=== PATIENT | female | born 1940 | race Caucasian/White ===

== ENCOUNTER → 2019-12-02 09:15 | Outpatient (CLI) | payer OTHER, SELFPAY ==
--- NOTE | ~2019-12-02 | MM_ITS ---
EXAMINATION: MM screening dayanara BI w butch HISTORY: Screening TECHNIQUE: Craniocaudal and mediolateral oblique 3-D tomosynthesis images were obtained and synthetic 2-D images were generated. CAD analysis was submitted and interpreted. COMPARISON: 11/17/2018 bilateral digital screening mammogram 09/15/2017 postbiopsy left mammogram 10/28/2017 right digital screening mammogram bilateral digital screening mammogram BREAST PARENCHYMAL COMPOSITION: There are scattered areas of fibroglandular density. FINDINGS: There is a biopsy marker on the left; history of prior benign left breast biopsy. There is no evidence of suspicious mass, calcification, or architectural distortion to suggest malignancy in e ither breast. There has been no suspicious interval change. IMPRESSION: 1. No mammographic evidence of malignancy. 2. Recommend routine screening mammography in one year. BI-RADS Category 1: Negative Reviewed, dictated and finalized at location A.
== END ==
PROVIDERS: PCP Emergency Medicine; Visit Provider Emergency Medicine
DX: Z12.31 Encounter for screening mammogram for malignant neoplasm of breast (principal)
CPT/HCPCS: 77063; 77067

== ENCOUNTER → 2020-09-19 08:17 | Outpatient (CLI) | payer OTHER, SELFPAY ==
--- NOTE | ~2020-09-19 | MMUS_ITS ---
EXAMINATION: MM diagnostic dayanara RT w butch, US breast RT complete HISTORY: Bloody nipple discharge TECHNIQUE: Additional 3-D tomosynthesis images of the right breast were performed and synthetic 2-D i mages were generated. CAD analysis was submitted and interpreted. High resolution right breast ultras ound was performed. COMPARISON: Comparison to multiple prior studies sequentially, with oldest reviewed study dated 01/2018. BREAST PARENCHYMAL COMPOSITION: Breast composed of scattered areas of fibroglandular density. FINDINGS: MAMMOGRAPHIC FINDINGS: There are no suspicious masses, calcifications or architectural distortion in the right breast to sug gest malignancy. ULTRASOUND: Complete right breast ultrasound including all 4 quadrants in the subareolar location demonstrates mi ldly prominent ducts at the 10:00 position. No discrete mass is identified. IMPRESSION: 1. No evidence for malignancy in the right breast. 2. Consider further evaluation with ductogram or MRI for further assessment of bloody nipple discharg e. BI-RADS Category 0: Incomplete: Needs additional imaging evaluation. Reviewed, dictated and finalized at location A. 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 No evidence for malignancy in the right breast. 2. Consider further evaluation with ductogram or MRI for further assessment of bloody nipple discharge. BI-RADS Category 0: Incomplete: Needs additional imaging evaluation.
== END ==
PROVIDERS: PCP Emergency Medicine; Visit Provider Emergency Medicine
DX: N64.52 Nipple discharge (principal); R92.8 Other abnormal and inconclusive findings on diagnostic imaging of breast
CPT/HCPCS: 76641; 77061; 77065; G0279

== ENCOUNTER 2020-10-19 10:08 | Outpatient (CLI) | payer OTHER, SELFPAY ==
--- NOTE | ~2020-10-19 | MM_ITS ---
MM consultation DATE: 10/19/2020 11:47 INDICATION: The patient presented for galactogram for right intermittent bloody nipple discharge. TECHNIQUE: Multiple attempts were made to introduce discharge by manual compression of the breast tis sammy, without success. IMPRESSION: Unable to perform galactogram due to failure to induce any nipple discharge Reviewed, dictated and finalized at Location A. Reviewed, dictated and finalized at location A. 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
== END 2020-10-19 10:09 | disposition home or self-care (01) ==
PROVIDERS: PCP Emergency Medicine; Visit Provider Emergency Medicine
DX: N64.52 Nipple discharge (principal)
CPT/HCPCS: 99199

== ENCOUNTER 2020-12-05 10:41 | Outpatient (CLI) | payer OTHER, SELFPAY ==
--- NOTE | ~2020-12-05 | MR_ITS ---
MR breast BI wo/w con 12/05/2020 14:58 CDT INDICATION: Bloody right nipple discharge. TECHNIQUE: MRI of the breasts perform using standard protocol pre-and post IV contrast with the follo wing sequences: Axial T2 STIR, axial T1, axial vibrant T1 with fat suppression precontrast and multip hasic postcontrast. COMPARISON: Mammogram and ultrasound dated 09/19/2020 FINDINGS: There are no abnormalities on the precontrast sequences. There is mild background parenchym al enhancement. There is a heterogeneously enhancing right areolar/subareolar mass with internal cyst ic change. This mass measures 11 x 9 x 9 mm with round shaped. There is rapid washout enhancement. LEFT BREAST: No signal abnormalities on precontrast sequences. There is mild background parenchymal enhancement. No enhancing lesions following contrast administration. No areas of enhancement meeti ng threshold criteria on CAD analysis. No evidence of signal abnormalities in the axillary or inter nal mammary node distributions.] IMPRESSION: 1: Right breast: Heterogeneously enhancing right areolar/subareolar mass measuring 11 mm with rapid washout enhancement characteristics. BI-RADS Category 4. 2: Left breast: Negative. No evidence of malignancy. BI-RADS category 1. Recommend annual mammogr aphy follow-up. BI-RADS CATEGORY 4-SUSPICIOUS ABNORMALITY RECOMMENDATION: Surgical consultation for excisional biopsy recommended. Dr. Tom Licona discussed with Dr. Suleman Harrell MD at 12/05/2020 15:17 CDT. Reviewed, dictated and finalized at location A. IMPRESSION: 1: Right breast: Heterogeneously enhancing right areolar/subareolar mass measu ring 11 mm with rapid washout enhancement characteristics. BI-RADS Category 4. 2: Left breast: Negative. No evidence of malignancy. BI-RADS category 1. Re commend annual mammography follow-up. BI-RADS CATEGORY 4-SUSPICIOUS ABNORMALITY RECOMMENDATION: Surgical consultation for excisional biopsy recommended. Dr. Tom Licona discussed with Dr. Suleman Harrell MD at 12/05/2020 15:17 CDT.
== END 2020-12-05 10:42 | disposition home or self-care (01) ==
PROVIDERS: PCP Emergency Medicine; Visit Provider Emergency Medicine
DX: N64.52 Nipple discharge (principal); R92.8 Other abnormal and inconclusive findings on diagnostic imaging of breast
CPT/HCPCS: 77049; A9577; C8908

== ENCOUNTER 2020-12-20 09:33 | Outpatient (CLI) | payer OTHER, SELFPAY ==
--- NOTE | ~2020-12-20 | US_ITS ---
US breast RT limited DATE: 12/20/2020 10:18 INDICATION: Patient presented for biopsy of reported subareolar mass TECHNIQUE: High-resolution ultrasound imaging and color flow imaging of the nipple and subareolar are a of the right breast COMPARISON: 09/19/2020 right complete breast ultrasound 12/05/2020 MRI breast examination FINDINGS: There is an approximately 6.5 mm nonspecific solid lesion within the right nipple complex. No subareolar mass lesion is noted. IMPRESSION: Nonspecific by 5 mm soft tissue mass is suggested within the right nipple; breast surgeon consultation is recommended with possible biopsy BI-RADS Category 4: Suspicious abnormality; biopsy should be considered Reviewed, dictated and finalized at Location A. Reviewed, dictated and finalized at location A.
== END 2020-12-20 09:34 | disposition home or self-care (01) ==
PROVIDERS: PCP Emergency Medicine; Visit Provider Surgery
DX: R92.8 Other abnormal and inconclusive findings on diagnostic imaging of breast (principal); N64.52 Nipple discharge
CPT/HCPCS: 76642

== ENCOUNTER → 2021-01-13 02:12 | Outpatient (CLI) | payer OTHER, SELFPAY ==
[2021-01-13 19:55] LABS: SARS-CoV-2 RNA PCR Negative
== END ==
PROVIDERS: PCP Emergency Medicine; Visit Provider Surgery
DX: Z01.812 Encounter for preprocedural laboratory examination (principal); Z20.822 Contact with and (suspected) exposure to COVID-19
CPT/HCPCS: C9803; U0003; U0005

== ENCOUNTER 2021-01-17 02:10 | Day surgery (SDC) | payer OTHER, SELFPAY ==
[2021-01-09 15:32] VITALS: BMI 26.6
--- NOTE | ~2021-01-17 | NM_ITS ---
EXAMINATION: NM sentinel node inject only INDICATION: Bloody right nipple discharge. TECHNIQUE: 1.064 mCi Tc 99m Lymphoseek were injected in 4 aliquots in the upper outer quadrant of the breast near the areola. No images were obtained. IMPRESSION: 1. Status post right breast sentinel lymph node radiopharmaceutical injection. Please refer to proced ure note for full details. Reviewed, dictated and finalized at location A. IMPRESSION: 1. Status post right breast sentinel lymph node radiopharmaceutical injection. Please refer to procedure note for full details.
[2021-01-17 06:50] VITALS: BP 145/76; PULSE 67; RESP 16; TEMP 36.2; O2SAT 95
--- NOTE | 2021-01-17 07:32 | WPDHPUPDATE1 ---
History and Physical Update Update Date/Time: 01/17/21 07:32 History and Physical has been reviewed, including an updated exam of the patient. There are NO changes in the patient's condition. Risks, benefits, and alternatives have been discussed and questions answered. Patient agrees to proceed with procedure.
[2021-01-17] MEDS: LACTATED RINGERS 1,000 ML 30 ML IV CONT ×2 (07:46→10:57)
--- NOTE | 2021-01-17 08:34 | SUR.PREOP ---
pt taken to nuclear med for needle loc, 0750.returned to pre op 0810.
--- NOTE | 2021-01-17 08:45 | WPDANESEPPF ---
Anes - Initial Pre Proc Eval Procedure: Operation Date: 01/17/21 08:30 Proposed Procedures p Right Breast Axillary [place] Lymph Node Biopsy - Sadiq Dalton MD s Right Breast Duct Excision - Sadiq Dalton MD Date/Time: 01/17/21 08:45 Surgeon: Sadiq Dalton MD Pre Op Diagnosis: bloody nipple discharge Patient Data Age: 80 Gender: F Height: 5 ft 9 in Weight: 82.6 kg Last Vital Signs Temp 36.2 C L 01/17/21 06:50 Pulse 67 01/17/21 06:50 Resp 16 01/17/21 06:50 BP 145/76 H 01/17/21 06:50 Pulse Ox 95 01/17/21 06:50 Allergies Allergy/AdvReac Type Severity Reaction Status Date / Time hydrocodone Allergy Unknown HALLUCINATI Verified 01/17/21 07:32 ONS oxycodone Allergy Unknown Hallucinati Verified 01/17/21 07:32 ng Home Medications Medication Instructions Recorded Confirmed Type biotin 2,500 mcg capsule 2,500 mcg PO DAILY 02/01/20 01/17/21 History calcium carbonate 600 mg (1,500 1 tablet PO BID 02/01/20 01/17/21 History mg)-vitamin D3 400 unit tablet turmeric root extract 500 mg 500 mg PO DAILY 02/01/20 01/17/21 History capsule cranberry 400 mg capsule 400 mg PO DAILY 08/30/20 01/17/21 History glucosamine-chondroitin 250 mg-200 1 tablet PO DAILY 08/30/20 01/17/21 History mg tablet conjugated estrogens 0.625 mg/gram 0.625 mg VAGINAL EVERY OTHER DAY 12/11/20 01/17/21 History vaginal cream mirabegron 50 mg tablet,extended 50 mg PO DAILY 12/11/20 01/17/21 History release 24 hr cholecalciferol (vitamin D3) 25 mcg PO DAILY 01/09/21 01/17/21 History estradiol 1 mg PO EVERY OTHER DAY 01/09/21 01/17/21 History levothyroxine 137 mcg PO QAM 01/09/21 01/17/21 History losartan 100 mg PO QAM 01/09/21 01/17/21 History kbvxkdqy-hhs-CI-lut-zeaxanth 1 tablet PO DAILY 01/09/21 01/17/21 History [Macular Vitamin] potassium chloride 10 meq PO DAILY 01/09/21 01/17/21 History verapamil 240 mg PO HS 01/09/21 01/17/21 History vit A-vit C-vit [id number] [Eye 2 tablet PO DAILY 01/09/21 01/17/21 History Vitamin and Minerals] Patient hx anesthesia problems: none Family hx anesthesia problems: none PMFSH Past Medical History Medical History CKD (chronic kidney disease), stage III History of blood transfusion HTN (hypertension) Hypothyroidism (acquired) Nipple discharge Surgical History Surgical History H/O cataract extraction H/O: hysterectomy History of bilateral knee replacement History of right hip replacement History of surgery on arm Family History Family History Mother Family history of osteoporosis, Onset Age: 102 Uterine cancer Father Acute myocardial infarction, Onset Age: 59 Diabetes mellitus Social History Social History Smoking status: Never smoker Alcohol intake: never Substance use: never Living arrangements: with family Additional living arrangements comments: [facility] Spiritual care concerns: No Anes - Eval Final PreProcedure Day of Procedure 01/17/21 08:45 Patient weight: overweight Heart: regular rate and rhythm Lungs: clear to auscultation Airway: Mallampati scale class II Neurological: alert and oriented Last oral intake: >/= 8 hours ASA classification: II Emergent: no Anesthetic plan: proceed Anesthesia type and monitoring: general LMA and standard monitoring Informed Consent: The patient's anesthetic plan and its attendant risks and benefits were discussed with the patient/family/POA. Questions were solicited and answers provided to the satisfaction of the patient/family/POA.
[2021-01-17] MEDS: ceFAZolin 2 GM/D5W 50 ML 2 GM/50 ML BAG IVPB (08:55)
[2021-01-17] MEDS: ISOSULFAN BLUE 1% INJ 5 ML VIAL SUB-Q (09:01)
--- NOTE | 2021-01-17 09:34 | SUR.OPER ---
Right Breast Axillary sentinel lymph node # 1 sent with DESTINY Barker and received in pathology by Carlyle
--- NOTE | 2021-01-17 09:45 | SUR.OPER ---
Right Breast Axillary [place] Lymph Node # 2 SENT WITH DESTINY BOURGEOIS AND RECEIVED IN PATHOLOGY JORGE Tadeo
--- NOTE | 2021-01-17 09:50 | SUR.OPER ---
Right Breast sentinel lymph node # 3 sent with DESTINY Barker and received in pathology by Carlyle
[2021-01-17 10:57] VITALS: BP 154/70; PULSE 59; RESP 16; TEMP 36.2; O2SAT 94
--- NOTE | 2021-01-17 11:12 | PM.PROC ---
Procedure Note - Detailed Date of procedure: 01/17/21 Pre-op diagnosis: bloody nipple discharge Bloody nipple discharge, right breast Post-op diagnosis: same Procedure performed: Right axillary sentinel lymph node dissection, excision right breast nipple and duct Description of procedure: The patient was seen in the preoperative holding area. She had previously been to x-ray where radioisotope had been administered for the sentinel node biopsy. The right breast was marked. She was taken to surgery and induced into general anesthesia. The right breast axilla and right arm were prepped and draped such that the arm was mobile and in the field. We started with the right axillary sentinel lymph node biopsy. The navigator was used and the axilla was checked. The area of highest isotope emission was marked in the axilla. I then infiltrated Isosulfan Blue dye under the right nipple. Gentle breast massage was carried out for 2-3 minutes. I then recheck the right axilla verifying again the area of high isotope emission. The proposed hairline right axillary incision was drawn on the skin. Local anesthesia was infiltrated into the area of the anticipated incision and in the deeper subcutaneous tissues of the axilla. Incision was made and deepened through the subcutaneous. Cautery was used for hemostasis. We continued the dissection down into the axillary contents. I recheck with the navigator in found the direction of the high isotope emission. There were several veins in this area as well. We dissected further into the axilla and identified a dye stained enlarged right axillary node. I verified this had high isotope emission as well. This node was dissected free from the surrounding veins and subcutaneous tissue of the axilla. Lymphatics were doubly clipped and divided. The node was removed. It was sent to pathology fresh for permanent labeled right axillary sentinel node 1. I looked in the axilla for additional lymphatics that may be dye stained in lead to additional sentinel nodes. I did not see any. I used the navigator and found high isotope emission high in the axilla under the pectoralis minor muscle. This area was exposed and using a navigator I dissected and found 2 additional isotope emitting axillary nodes. These were each dissected out carefully using clips and cautery. Each was doubly checked and found to give a very high isotope emission consistent with sentinel nodes. They were each sent to pathology labeled right axillary sentinel nodes 2. And 3. We then checked by palpation and with the navigator for any additional nodes that might be sentinel nodes. None were found. The wound was made hemostatic with the cautery. It was closed in layers with 3 0 Monocryl interrupted suture. The skin was closed with interrupted 3 0 Monocryl subcuticular skin suture. The right axilla was then quarantined. We turned our attention to the right breast. The area that had been the site of the bloody nipple discharge was obviously an open wound on the nipple protrusion. I tried to elicit bloody nipple discharge but could not do so. Using lacrimal duct probes, I was however, able to introduce a lacrimal duct probe into the associated duct and down into the superficial breast tissue just below the nipple-areolar complex. I then marked a circumareolar incision in the inferior medial portion of the nipple. Local anesthesia was infiltrated into this area and in the deeper breast tissue. Incision was made and deepened into the subcutaneous. The cautery was again used for hemostasis. We then elevated the nipple-areolar complex and dissected superficially but deep to the areola. I dissected over to the vicinity of the nipple and the lacrimal duct probe. From there I then excised the tissue directly underneath the nipple and that tissue extending deeper into the breast but associated with the lacrimal duct probe. All of this retroareolar breast tissue was removed. It was
[2021-01-17 11:25] VITALS: BP 155/73; PULSE 59; O2SAT 91
[2021-01-17 11:55] VITALS: BP 155/72; PULSE 51
== END 2021-01-17 12:15 | disposition home or self-care (01) ==
PROVIDERS: PCP Emergency Medicine; Visit Provider Surgery
PROC: (CPT 38525; principal; 2021-01-17 08:30)
PROC: (CPT 19301; 2021-01-17 08:30)
DX: N64.52 Nipple discharge (principal); N60.81 Other benign mammary dysplasias of right breast; I12.9 Hypertensive chronic kidney disease with stage 1 through stage 4 chronic kidney disease, or unspecified chronic kidney disease; N18.30 Chronic kidney disease, stage 3 unspecified; E03.9 Hypothyroidism, unspecified
CPT/HCPCS: 19301; 38525; 38792; 88305; 88307; A9520; C1713; C9803; J0690; J1100; J1170; J2405; J2704; J3010; J7120; U0003; U0005

== ENCOUNTER → 2021-03-06 11:19 | Outpatient (CLI) | payer OTHER, SELFPAY ==
--- NOTE | ~2021-03-06 | MM_ITS ---
EXAMINATION: MM screening dayanara LT w butch HISTORY: Screening left mammogram TECHNIQUE: Craniocaudal and mediolateral oblique 3-D tomosynthesis images were obtained and synthetic 2-D images were generated. CAD analysis was submitted and interpreted. COMPARISON: 12/02/2019, 11/17/2018 BREAST PARENCHYMAL COMPOSITION: The breast is heterogeneously dense, which may obscure small masses. FINDINGS: There is no evidence of suspicious mass, calcification, or architectural distortion to sugg est malignancy. There has been no suspicious interval change. IMPRESSION: 1. No mammographic evidence of malignancy. 2. Recommend routine screening mammography while the patient remains in good health. BI-RADS Category 1: Negative Reviewed, dictated and finalized at location A. IMPRESSION: 1. No mammographic evidence of malignancy. 2. Recommend routine screening mammography while the patient remains in good he alth. BI-RADS Category 1: Negative
== END ==
PROVIDERS: PCP Emergency Medicine; Visit Provider Emergency Medicine
DX: Z12.31 Encounter for screening mammogram for malignant neoplasm of breast (principal)
CPT/HCPCS: 77063; 77067

== ENCOUNTER 2021-07-10 10:44 | Inpatient (IN) | payer OTHER, SELFPAY ==
--- NOTE | ~2021-07-10 | CT_ITS ---
EXAMINATION: CT brain wo con DATE: 07/10/2021 14:13 INDICATION: Abnormal gait, loss of balance. Right upper extremity tingling. TECHNIQUE: Computed tomography (CT) of the head was performed without intravenous contrast. The mA wa s adjusted according to patient size. Iterative reconstruction technique was employed. Exam dose: 60 5.33 mGy-cm total exam DLP. COMPARISON: None FINDINGS: Bilateral vertebral artery, basilar artery and prominent bilateral carotid siphon and supra clinoid internal carotid artery calcifications are noted. There is prominent nonspecific patchy diminished attenuation of the subcortical and periventricular c erebral white matter, likely due to chronic small vessel ischemic changes. Small chronic lacunar infa rcts of left thalamus. No cerebrovascular accident is noted otherwise. No intracranial mass lesion or hemorrhage is detected. There is moderate cerebral and cerebellar volume loss. No subdural or epidural hematoma is detected. No fracture or bone destruction of the cranial vault. Included paranasal sinuses and mastoid air cells are normally developed and aerated. IMPRESSION: Cerebral atherosclerosis and nonspecific white matter changes likely due to chronic small vessel ischemic changes Small chronic lacunar infarcts of left thalamus Reviewed, dictated and finalized at [facility]. Reviewed, dictated and finalized at location A. SFORMER BUILDER IMPRESSION: Cerebral atherosclerosis and nonspecific white matter changes likel y due to chronic small vessel ischemic changes Small chronic lacunar infarcts of left thalamus
--- NOTE | ~2021-07-10 | US_ITS ---
EXAMINATION: US carotid duplex BI EXAM DATE: 07/11/2021 12:42 INDICATION: Stroke symptoms. TECHNIQUE: Grayscale, color and pulsed Doppler images of the cervical carotid arteries were obtained . The degree of vessel stenosis is placed in one of the following categories: normal, <50% stenosis, 50-69% stenosis, >=70% stenosis but less than near-occlusion, near-occlusion, or occlusion. Note that percent stenosis relative to normal distal artery lumen diameter is indirectly measured from velocit y measurements as described by Reza, et al. Radiology 2003; 229:340-346. There is no prior study fo r comparison. FINDINGS: RIGHT SIDE: Right common carotid artery peak systolic velocity (PSV in cm/s): 73 Right bulb/internal carotid artery peak systolic velocity (PSV in cm/s): 42 Right internal carotid artery end diastolic velocity (EDV in cm/s): 12 Right ICA/CCA peak systolic ratio: 0.6 Right external carotid artery peak systolic velocity (PSV in cm/s): 43 Right vertebral artery antegrade flow: yes There is no focal plaque identified. LEFT SIDE: Left common carotid artery peak systolic velocity (PSV in cm/s): 51 Left bulb/internal carotid artery peak systolic velocity (PSV in cm/s): 61 Left internal carotid artery end diastolic velocity (EDV in cm/s): 20 Left ICA/CCA peak systolic ratio: 1.2 Left external carotid artery peak systolic velocity (PSV in cm/s): 42 Left vertebral artery antegrade flow: yes There is no focal plaque identified. IMPRESSION: 1. Normal right internal carotid artery. 2. Normal left internal carotid artery. Reviewed, dictated and finalized at location [facility]. OND FINISHING SUPERVISOR
--- NOTE | ~2021-07-10 | MR_ITS ---
EXAMINATION: MR brain/brain stem wo/w con EXAM DATE: 07/11/2021 13:06 INDICATION: Acute CVA. TECHNIQUE: Magnetic resonance imaging (MRI) of the brain/brain stem obtained without contrast. Sagit frieda T1, axial diffusion, gradient echo (T2*), T1, T2, FLAIR sequences obtained. Patient was then inj ected with 15 cc intravenous Multihance contrast. Axial and coronal postcontrast T1 weighted sequence s obtained. Correlation is made to head CT from 07/10/2021. FINDINGS: Small focus of restricted diffusion in the left thalamus, consistent with acute lacunar inf arction. There is moderate microangiopathy in mild cerebral atrophy. No extra-axial collections, brai n mass or obstructive hydrocephalus. Bilateral cataract surgery. Dilated perivascular spaces. Flow vo ids are seen in the cerebral arteries on the T2 weighted sequences consistent with their expected pat ency. There is no acute hemorrhage seen on the T2*, a susceptibility sensitive sequence. Mild mucoper iosteal thickening. IMPRESSION: 1. Punctate acute left thalamic lacunar infarction. 2. Moderate microangiopathy, mild atrophy. Reviewed, dictated and finalized at location B. RANCE INSPECTOR
--- NOTE | ~2021-07-10 | XR_ITS ---
XR chest 2V DATE: 07/10/2021 11:24 INDICATION: Hypertension. Right arm tingling. TECHNIQUE: PA and lateral views COMPARISON: 08/10/2010 portable AP chest FINDINGS: Mild cardiomegaly. There is aortic tortuosity and minimal calcification. No pulmonary infiltrate or consolidation, pleural effusion or pulmonary vascular congestion or pneumo thorax. No hilar or mediastinal enlargement is detected. Plate and screws along the proximal right humerus for old surgical neck fracture.. Diffuse osteopenia . Degenerative spurring of the thoracic spine. IMPRESSION: No active pulmonary disease Reviewed, dictated and finalized at location A. EMER REGULATOR IMPRESSION: No active pulmonary disease
[2021-07-10 10:56] VITALS: BP 203/106; PULSE 70; RESP 20; TEMP 36.4; O2SAT 97
--- NOTE | 2021-07-10 10:59 | ECG_ITS ---
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
[2021-07-10 12:02] LABS: Basophils Absolute Auto 0.1 K/mm3 (0.0-0.1); Basophils Percent Auto 1.3 % (0.2-1.2); Eosinophils Percent Auto 0.9 % (0-4.4); Hematocrit 41.9 % (37.0-47.0); Immature Granulocyte Absolute 0.01 K/mm3 (0.00-0.031); Immature Granulocyte Percent A 0.2 % (0-0.5); Lymphocytes Absolute Auto 0.92 K/mm3 (0.9-3.2); Lymphocytes Percent Auto 19.6 % (18.3-44.2); Mean Corpuscular HGB Conc 33.4 g/dl (32-36); Mean Corpuscular Volume 98.8 fl (80-100); Mean Platelet Volume 9.4 fl (7.4-10.4); Monocytes Absolute Auto 0.4 K/mm3 (0.1-0.6); Monocytes Percent Auto 9.1 % (2.6-8.5); Neutrophils Absolute Auto 3.2 K/mm3 (1.3-6.7); Neutrophils Percent Auto 68.9 % (45.5-73.1); Platelet Count Result 271 k/mm3 (150-375); Red Blood Count 4.24 M/mm3 (4.2-5.4); White Blood Count 4.7 K/mm3 (4.5-10.0)
[2021-07-10 12:12] LABS: Anion Gap 8 mmol/L (8-16); Blood Urea Nitrogen 23 mg/dL (7-17); Calcium 8.6 mg/dL (8.4-10.2); Carbon Dioxide 29 mmol/L (22-30); Chloride 101 mmol/L (98-107); Estimated CRCL calculation 39 ml/min; Estimated Glomerular Filt Rate 53; Glucose 93 mg/dL (65-110); INR 0.9; Prothrombin Time 12.4 Seconds (11.1-14.7); Sodium 138 mmol/L (137-145)
[2021-07-10 12:13] LABS: Partial Thromboplastin Time 30.7 SECONDS (22.3-36.8)
[2021-07-10 12:24] LABS: Troponin I < 0.012 ng/mL (0.000-0.034)
--- NOTE | 2021-07-10 14:00 | ED.GENADULT ---
HPI - General Adult General Chief complaint: Unspecified Stated complaint: elevated bp, tingling hand/yesterday Time Seen by Provider: 07/10/21 13:08 Source: patient and family Mode of arrival: ambulatory Limitations: no limitations History of Present Illness HPI narrative: 81 years old white female present to the ED because of numbness of the right hand, right lower extremity, and funny walking started 6 AM yesterday lasted all day long. Woke up this morning with no symptoms except slight tingling in the right hand. Patient denies slurred speech, focal weakness, vision abnormality, fever, chills, nausea, vomiting, chest pain, shortness of breath or headache. Patient does not take aspirin, not on any blood thinner, denied any history of CVA, TIA or coronary artery disease. 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 Related Data Home Medications Medication Instructions Recorded Confirmed biotin 2,500 mcg capsule 2,500 mcg PO DAILY 02/01/20 03/03/21 calcium carbonate 600 mg (1,500 1 tablet PO BID 02/01/20 03/03/21 mg)-vitamin D3 400 unit tablet turmeric root extract 500 mg 500 mg PO DAILY 02/01/20 03/03/21 capsule cranberry 400 mg capsule 400 mg PO DAILY 08/30/20 03/03/21 conjugated estrogens 0.625 mg/gram 0.625 mg VAGINAL EVERY OTHER DAY 12/11/20 03/03/21 vaginal cream mirabegron 50 mg tablet,extended 50 mg PO DAILY 12/11/20 03/03/21 release 24 hr Macular Vitamin 1 tablet PO DAILY 01/09/21 03/03/21 cholecalciferol (vitamin D3) 25 mcg PO DAILY 01/09/21 03/03/21 losartan 100 mg PO QAM 01/09/21 03/03/21 potassium chloride 10 meq PO DAILY 01/09/21 03/03/21 vit A-vit C-vit [id number] 2 tablet PO DAILY 01/09/21 03/03/21 Allergies Allergy/AdvReac Type Severity Reaction Status Date / Time hydrocodone Allergy Unknown HALLUCINATI Verified 02/27/21 11:44 ONS oxycodone Allergy Unknown Hallucinati Verified 02/27/21 11:44 ng Review of Systems Review of Systems: CONSTITUTIONAL: Denies fever, chills, or sweats. EYES: Denies visual changes, redness, or discharge. ENT: Denies rhinorrhea, congestion, sore throat, or otalgia. CARDIOVASCULAR: Denies chest pain, palpitations, or edema. RESPIRATORY: Denies cough or dyspnea. GASTROINTESTINAL: Denies abdominal pain, nausea, vomiting, or diarrhea. GENITOURINARY: Denies dysuria or hematuria. SKIN: Denies rash or itching. MUSCULOSKELETAL: Denies back pain, joint pain, or myalgia. NEUROLOGIC: Denies headache, numbness, or weakness. PSYCHIATRIC: Denies anxiety or depression. [facility] Past Medical History Medical History CKD (chronic kidney disease), stage III History of blood transfusion HTN (hypertension) Hypothyroidism (acquired) Nipple discharge Surgical History Surgical History H/O breast biopsy Right axillary sentinel lymph node dissection, excision right breast nipple and duct H/O cataract extraction H/O: hysterectomy History of bilateral knee replacement History of right hip replacement History of surgery on arm Family History Family History Mother Family history of osteoporosis, Onset Age: 102 Uterine cancer Father Acute myocardial infarction, Onset Age: 59 Diabetes mellitus Social History Social History Smoking status: Never smoker Alcohol intake: never Substance use: never [facility] Spiritual care concerns: No Exam Narrative: General appearance: Well-developed, well-nourished Skin: Normal color Head: Normocephalic, nontraumatic Eyes: Clear conjunctiva ENT: Oropharynx normal, ears normal, nose normal Neck: Supple, nontender Chest and respiratory: Airway patent, no respiratory distress, no accessory muscle use Heart: Regular rate/rhythm Ab
[2021-07-10 14:32] LABS: Troponin I < 0.012 ng/mL (0.000-0.034)
[2021-07-10 15:06] VITALS: BP 185/98; PULSE 65; RESP 16; O2SAT 99
[2021-07-10] MEDS: POTASSIUM CHLORIDE 20 MEQ TABLET 40 MEQ PO (16:12)
[2021-07-10] MEDS: ASPIRIN 325 MG TABLET PO (16:12)
[2021-07-10] MEDS: cloNIDine HCL 0.1 MG TABLET PO (16:16)
--- NOTE | 2021-07-10 16:45 | ADMGEN ---
This patient, Geena Barclay, was admitted to Medical Room 257-01. Patient/family oriented to hospital policies and general routines including ID bracelet, bed and alarms, visiting hours, pain management, procedures, bathroom and other care routines, personal items, smoking policy, room service/diet, and visiting hours. Information on how to activate the Rapid Response Team has been discussed. Patient/Family are encouraged to report perceived risks to care and to ask questions if they do not understand what they are told or what they should do.
--- NOTE | 2021-07-10 16:50 | PM.IMHP ---
H&P: HPI History of Present Illness Date/Time: 07/10/21 16:50 Chief Complaint: Right hand tingling and elevated blood pressures. Narrative: This is a very pleasant 81-year-old female with hypertension who presented to the emergency department earlier today from home for evaluation of right hand tingling and elevated blood pressures. Upon waking from sleep yesterday she noticed that her right hand seemed to be a bit numb and tingling which lasted throughout the day. It seemed to be a bit better this morning however she noticed that her blood pressures were high this morning and felt it would be best to come in for evaluation. She has not had any weakness in that right hand or arm and her coordination has been on remarkable, she simply has these paresthesias. Yesterday she thought her gait may have been a bit with perhaps mild paresthesias in the leg but that has since resolved. Brain CT done on arrival to the emergency department did not show any acute findings however did show an old lacunar infarct unknown to the patient. At the time my evaluation she has no significant complaints. She denies vertigo, auditory and visual changes, focal weakness, facial droop, dysarthria, and dysphagia. She has no history of cardiac dysrhythmia and denies palpitations and feelings of racing heart. She has not had any injuries and she denies head and neck pain. She is followed by Dr. Xavier for mild aortic stenosis and mild mitral valve regurgitation and reports having an echocardiogram sometime this summer. Review of Systems Review of Systems: Twelve systems were reviewed. No fever, chills, or sweats. No recent cold or flu symptoms. No sick contacts. Except as documented, all other systems were reviewed and are negative. FOR[facility]LY [facility], LATER [facility] Past Medical History Medical History (Updated 07/10/21 @ 22:31 by Hermelinda Marx PA-C) Cerebrovascular accident Brain CT on 07/10/2021 showed small chronic lacunar infarcts of the left thalamus. Chronic kidney disease, stage 3 Diastolic dysfunction Echocardiogram on 02/02/2021 showed normal left ventricular systolic function with an EF of 60% and impaired diastolic relaxation grade 1. History of blood transfusion Hypertension Hypothyroidism Mild aortic stenosis Valve area of 1.39 cm2 on echocardiogram obtained 02/02/2021. Mild mitral valve regurgitation Noted on echocardiogram obtained 02/02/2021. Osteoarthritis Overactive bladder Surgical History Surgical History (Updated 07/10/21 @ 22:31 by Hermelinda Marx PA-C) History of bilateral knee replacement Left knee: 2007 Right knee: 2018. History of breast surgery (01/17/21) Right axillary sentinel lymph node dissection with excision of right breast nipple and duct. Pathology showed 3 benign lymph nodes as well as a benign nipple adenoma with usual intraductal hyperplasia with no evidence of malignancy. History of cataract extraction History of colonoscopy Diverticulosis and internal hemorrhoids. History of hammertoe correction History of hysterectomy History of open reduction and internal fixation (ORIF) procedure Right proximal humerus surgical neck fracture. Right hip fracture with trochanteric nail. Family History Family History Mother Family history of osteoporosis, Onset Age: 102 Uterine cancer Father Acute myocardial infarction, Onset Age: 59 Diabetes mellitus Social History Social History (Updated 07/10/21 @ 22:32 by Hermelinda Marx PA-C) Social History: Surrogate decision maker: Perico Barclay, . Code status: Full code. Smoking status: Never smoker Alcohol intake: never Substance use: never Additional living arrangements comments: The patient lives in [place] with her . They have 6 children. 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 Meds Home Medications and A
[2021-07-10 17:36] LABS: Troponin I < 0.012 ng/mL (0.000-0.034)
[2021-07-10 18:06] VITALS: BP 154/75; PULSE 68; RESP 16; TEMP 36.5; O2SAT 95
[2021-07-10 20:00] VITALS: PULSE 63
[2021-07-10 20:13] VITALS: PULSE 68; RESP 18; O2SAT 96
[2021-07-10 20:44] VITALS: BP 154/79; PULSE 62; RESP 14; TEMP 36.3; O2SAT 95
[2021-07-11] VITALS (9 sets, daily range): BP systolic 144–177; BP diastolic 78–89; PULSE 58–73; RESP 12–18; TEMP 36.2–36.7; O2SAT 93–96
--- NOTE | 2021-07-11 | ECHO_ITS ---
Patient Info Name: Geena Barclay Age: 81 years : 1940 Gender: Female Ht: 69 in Wt: 172 lbs BSA: 1.96 m2 HR: 78 bpm BP: 168 / 82 mmHg Heart Rhythm: Sinus Rhythm Technical Quality: Fair Exam Date: 07/11/2021 4:01 PM Exam Location: [facility] Pulmonary Exam Room: 257 Patient Status: Inpatient Admit Date: 07/11/2021 Staff Ordering Physician: Carlos Royal Paint Line Production Supervisor: Melani Gore RDCS Attending Provider: Twan Ontiveros MD Referring Physician: Lele AMIN; Exam Type: CA echo doppler w bubble study Study Info Complete two-dimensional, color flow and Doppler transthoracic echocardiogram is performed with agitated saline. Contrast/Agitated Saline Contrast/Ag. Saline: Agitated Saline Amount: 20.00 ml Existing IV Access: Yes Summary 1. Left ventricular chamber dimension is mildly enlarged. 2. Left ventricular systolic function is low normal, estimated at 50-55%. 3. There is mildly increased left ventricular wall thickness. 4. The left ventricular diastolic function is grade I diastolic dysfunction. 5. Left atrial chamber dimension is moderately enlarged. 6. Right atrial chamber dimension is mildly enlarged. 7. Intact interatrial septum visualized by color flow and agitated saline imaging. 8. There is mild aortic valve stenosis with a peak velocity of 216 cm/s, mean gradient of 10 mmHg, and aortic valve area of 1.7 cm2. 9. There is mild aortic valve regurgitation. 10. There is mild to moderate mitral valve regurgitation. 11. There is mild tricuspid valve regurgitation. Left Ventricle Left ventricular chamber dimension is mildly enlarged. Left ventricular systolic function is low normal, estimated at 50-55%. There is mildly increased left ventricular wall thickness. The left ventricular diastolic function is grade I diastolic dysfunction. Right Ventricle Right ventricular chamber dimension is normal. Right ventricular systolic function is normal. Left Atria Left atrial chamber dimension is moderately enlarged. Right Atria Right atrial chamber dimension is mildly enlarged. Atrial Septum Intact interatrial septum visualized by color flow and agitated saline imaging. Aortic Valve The aortic valve is trileaflet. There is mild aortic valve stenosis with a peak velocity of 216 cm/s, mean gradient of 10 mmHg, and aortic valve area of 1.7 cm2. There is mild aortic valve regurgitation. There is severe aortic valve calcification. Pulmonic Valve The pulmonic valve is normal. There is no pulmonic valve stenosis. There is trace pulmonic regurgitation. Mitral Valve The mitral valve has thickened leaflets and calcified annulus. There is no mitral valve stenosis. There is mild to moderate mitral valve regurgitation. Tricuspid Valve The tricuspid valve leaflets are normal. There is no significant tricuspid valve stenosis. There is mild tricuspid valve regurgitation. No pulmonary hypertension, estimated pulmonary arterial systolic pressure is 29 mmHg. Pericardium/Pleural The pericardium appears normal. There is trivial pericardial effusion. Inferior Vena Cava Normal inferior vena cava with >50% collapse upon inspiration consistent with normal right atrial pressure, 10 mmHg. Aorta The aortic root size at the sinus of Valsalva is normal. The prox ascending aorta size is mildly dilated. There is mild aortic atherosclerosis. Left Ventricular Outflow Tract
[2021-07-11 06:08] LABS: Alanine Aminotransferase 13 U/L (4-35); Albumin Level 3.4 g/dL (3.5-5.1); Alkaline Phosphatase 63 U/L (38-126); Anion Gap 6 mmol/L (8-16); Aspartate Amino Transferase 24 U/L (14-36); Bilirubin,Total 0.7 mg/dL (0.2-1.3); Blood Urea Nitrogen 24 mg/dL (7-17); Carbon Dioxide 28 mmol/L (22-30); Chloride 102 mmol/L (98-107); Cholesterol 161 mg/dL (0-200); Estimated CRCL calculation 39 ml/min; Estimated Glomerular Filt Rate 53; Glucose 88 mg/dL (65-110); HDL Direct 60 mg/dL; Magnesium 2.1 mg/dL (1.6-2.3); Potassium 2.7 mmol/L (3.4-5.0); Sodium 136 mmol/L (137-145); Triglycerides 105 mg/dL (<150)
[2021-07-11 06:10] LABS: LDL Cholesterol Direct 68 mg/dL
[2021-07-11] MEDS: LEVOTHYROXINE SODIUM 25 MCG TABLET PO (06:51)
[2021-07-11] MEDS: LEVOTHYROXINE SODIUM 112 MCG TABLET PO (06:51)
[2021-07-11] MEDS: POTASSIUM CHLORIDE 20 MEQ TABLET 40 MEQ PO (07:45)
[2021-07-11] MEDS: POTASSIUM CHLORIDE 10 MEQ TABLET.ER PO (08:51)
[2021-07-11] MEDS: CHOLECALCIFEROL 1,000 UNITS TABLET 1000 UNITS PO ×2 (08:51→17:37)
[2021-07-11] MEDS: LOSARTAN POTASSIUM 100 MG TABLET PO (08:51)
[2021-07-11] MEDS: OPTI-GEN TAB 1 TABLET PO (08:51)
[2021-07-11] MEDS: CALCIUM CARBONATE (OSCAL) 500 MG TABLET PO ×2 (08:51→17:37)
[2021-07-11] MEDS: VERAPAMIL HCL 180 MG TABLET ER 360 MG PO (08:51)
[2021-07-11] MEDS: ASPIRIN 81 MG CHEWABLE TABLET PO (08:52)
--- NOTE | 2021-07-11 11:40 | PM.IMPN ---
Progress Note: A&P Assessment and Plan (1) Hypertensive urgency: Code(s): I16.0 - Hypertensive urgency Status: Acute Assessment and Plan: Current BP is 144/78 blood pressure was 203/106 in the emergency department received clonidine 0.1 mg p.o. x1 in the emergency department with improvement in her blood pressures. states compliance with her antihypertensives, which will be resumed Continue home losartan 100mg PO, Verapamil 360mg PO Trend BP Adjust medications as needed (2) Right hand paresthesia: Code(s): R20.2 - Paresthesia of skin Status: Acute Assessment and Plan: Symptoms were present upon waking yesterday morning monitor on telemetry overnight brain MRI has been ordered carotid Doppler read normal bilaterally neurologic checks q.4 hours while awake. baby aspirin daily lipids Cholesterol 161, Triglycerides 105, LDL 68, HDL 60 Dr. Lynn has been consulted and his input is appreciated. (3) Hypokalemia: Code(s): E87.6 - Hypokalemia Status: Acute Assessment and Plan: Current K 2.7 KCL 40mcg and 40mcg recheck potassium replace as needed (4) Chronic kidney disease, stage 3: Code(s): N18.30 - Chronic kidney disease, stage 3 unspecified Status: Acute Assessment and Plan: Current BUN Cr 24/1.00 GFR 53, creatinine clearance 39 Stable at this time Continue to trend (5) Hypothyroidism: Code(s): E03.9 - Hypothyroidism, unspecified Status: Acute Assessment and Plan: Continue levothyroxine check TSH Time Spent With Patient Time with patient: 25 - 35 minutes Subjective Date/time seen: 07/11/21 11:40 Interval history: Date/Time: 07/10/21 16:50 Narrative: This is a very pleasant 81-year-old female with hypertension who presented to the emergency department earlier today from home for evaluation of right hand tingling and elevated blood pressures. Upon waking from sleep yesterday she noticed that her right hand seemed to be a bit numb and tingling which lasted throughout the day. It seemed to be a bit better this morning however she noticed that her blood pressures were high this morning and felt it would be best to come in for evaluation. She has not had any weakness in that right hand or arm and her coordination has been on remarkable, she simply has these paresthesias. Yesterday she thought her gait may have been a bit with perhaps mild paresthesias in the leg but that has since resolved. Brain CT done on arrival to the emergency department did not show any acute findings however did show an old lacunar infarct unknown to the patient. At the time my evaluation she has no significant complaints. She denies vertigo, auditory and visual changes, focal weakness, facial droop, dysarthria, and dysphagia. She has no history of cardiac dysrhythmia and denies palpitations and feelings of racing heart. She has not had any injuries and she denies head and neck pain. She is followed by Dr. Xavier for mild aortic stenosis and mild mitral valve regurgitation and reports having an echocardiogram sometime this summer. Date/Time Seen 07/11/21 1140 Patient stated that she is feeling a lot better today. She stated that she is still having some numbness in the right thumb. Strength is normal bilaterally. She denies weakness, visual problems, aphasia, or tactile disturbances. She is able to walk independently, and is not having any urinary dysfunction. She denies chest pain, shortness, nausea, vomiting, abdominal pain, sweats, fevers, and chills. Review of Systems Review of Systems: All systems reviewed & are unremarkable except as noted in HPI and below Exam Const: General: cooperative, healthy appearing, no acute distress, well developed, alert and awake Nutritional Appearance: well nourished Orientation/consciousness: oriented to person, oriented to place, oriented to time and patient oriented x3 L
--- NOTE | 2021-07-11 12:05 | WPDNEURCNPN ---
Assessment and Plan Additional Plan 1. TIA 2. Old left thalamic stroke 3. Hypertension plan is to obtain the MRI of the brain in the meantime continue the medication as such Consult date: 07/11/21 HPI: Geena Barclay is a 81 year old female Admitted to [facility] through the emergency room for the complaints of right hand tingling along with the elevated blood pressure. Brought to the emergency room for home upon waking from sleep yesterday she noted her right hand seemed to be a bit numb and tingling which lasted throughout the day his seem to be a bit better this morning however she noted that her blood pressure was high she did not have any associated weakness in the right upper or right lower extremity and her coordination was also normal except that she experienced paresthesias yesterday that is day before admission she noted her gait was somewhat of initial CT scan in the emergency room did not reveal any bleed or space-occupying lesion but there was an old lacunar infarct she gave no history of associated vertigo visual difficulties focal weakness dysarthria or dysphagia evaluation included the CT scan of the head which documented small chronic lacunar infarct of left thalamus and documentation of chronic renal disease stage III Review of Systems Review of Systems: All systems reviewed & are unremarkable except as noted in HPI and below PMFSH Past Medical History Medical History Cerebrovascular accident Brain CT on 07/10/2021 showed small chronic lacunar infarcts of the left thalamus. Chronic kidney disease, stage 3 Diastolic dysfunction Echocardiogram on 02/02/2021 showed normal left ventricular systolic function with an EF of 60% and impaired diastolic relaxation grade 1. History of blood transfusion Hypertension Hypothyroidism Mild aortic stenosis Valve area of 1.39 cm2 on echocardiogram obtained 02/02/2021. Mild mitral valve regurgitation Noted on echocardiogram obtained 02/02/2021. Osteoarthritis Overactive bladder Surgical History Surgical History History of bilateral knee replacement Left knee: 2007 Right knee: 2018. History of breast surgery (01/17/21) Right axillary sentinel lymph node dissection with excision of right breast nipple and duct. Pathology showed 3 benign lymph nodes as well as a benign nipple adenoma with usual intraductal hyperplasia with no evidence of malignancy. History of cataract extraction History of colonoscopy Diverticulosis and internal hemorrhoids. History of hammertoe correction History of hysterectomy History of open reduction and internal fixation (ORIF) procedure Right proximal humerus surgical neck fracture. Right hip fracture with trochanteric nail. Family History Family History Mother Family history of osteoporosis, Onset Age: 102 Uterine cancer Father Acute myocardial infarction, Onset Age: 59 Diabetes mellitus Social History Social History Social History: Surrogate decision maker: Perico Barclay, . Code status: Full code. Smoking status: Never smoker Alcohol intake: never Substance use: never Additional living arrangements comments: The patient lives in [place] with her . They have 6 children. 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 Meds Home Medications and Allergies Home Medications Medication Instructions Recorded Confirmed Type turmeric root extract 500 mg 500 mg PO DAILY 02/01/20 07/10/21 History capsule cranberry 400 mg capsule 800 mg PO HS 08/30/20 07/10/21 History conjugated estrogens 0.625 mg/gram 0.625 mg VAGINAL EVERY OTHER DAY 12/11/20 07/10/21 History vaginal cream mirabegron 50 mg tablet,extended 50 m
[2021-07-11 15:24] LABS: Potassium 3.4 mmol/L (3.4-5.0)
[2021-07-11] MEDS: CLOPIDOGREL BISULFATE 300 MG TABLET PO (17:36)
[2021-07-11] MEDS: MIRABEGRON 50 MG ER TABLET PO (21:12)
[2021-07-12] VITALS: PULSE 70
[2021-07-12 04:00] VITALS: PULSE 66
[2021-07-12 05:36] LABS: Basophils Percent Auto 0.8 % (0.2-1.2); Eosinophils Absolute Auto 0.1 K/mm3 (0-0.3); Eosinophils Percent Auto 2.3 % (0-4.4); Hematocrit 39.2 % (37.0-47.0); Hemoglobin 13.4 g/dL (12.0-15.0); Immature Granulocyte Absolute 0.02 K/mm3 (0.00-0.031); Immature Granulocyte Percent A 0.4 % (0-0.5); Lymphocytes Absolute Auto 1.26 K/mm3 (0.9-3.2); Lymphocytes Percent Auto 24.4 % (18.3-44.2); Mean Corpuscular HGB Conc 34.2 g/dl (32-36); Mean Corpuscular Hemoglobin 33.3 pg (26-34); Mean Corpuscular Volume 97.3 fl (80-100); Mean Platelet Volume 9.1 fl (7.4-10.4); Monocytes Absolute Auto 0.5 K/mm3 (0.1-0.6); Monocytes Percent Auto 9.9 % (2.6-8.5); Neutrophils Absolute Auto 3.2 K/mm3 (1.3-6.7); Neutrophils Percent Auto 62.2 % (45.5-73.1); Platelet Count Result 242 k/mm3 (150-375); Red Blood Count 4.03 M/mm3 (4.2-5.4); Red Cell Distribution Width 12.9 % (11.5-14.5); White Blood Count 5.2 K/mm3 (4.5-10.0)
[2021-07-12 05:58] VITALS: BP 177/76; PULSE 87; RESP 14; TEMP 36.6; O2SAT 98
[2021-07-12 06:07] VITALS: BMI 26.3
[2021-07-12] MEDS: LEVOTHYROXINE SODIUM 25 MCG TABLET PO (06:08)
[2021-07-12] MEDS: LEVOTHYROXINE SODIUM 112 MCG TABLET PO (06:08)
[2021-07-12 06:59] LABS: Alanine Aminotransferase 15 U/L (4-35); Albumin Level 3.9 g/dL (3.5-5.1); Alkaline Phosphatase 71 U/L (38-126); Anion Gap 5 mmol/L (8-16); Aspartate Amino Transferase 26 U/L (14-36); Bilirubin,Total 0.8 mg/dL (0.2-1.3); Blood Urea Nitrogen 19 mg/dL (7-17); Calcium 8.9 mg/dL (8.4-10.2); Carbon Dioxide 32 mmol/L (22-30); Chloride 102 mmol/L (98-107); Estimated CRCL calculation 39 ml/min; Estimated Glomerular Filt Rate 53; Glucose 96 mg/dL (65-110); Potassium 3.3 mmol/L (3.4-5.0); Sodium 139 mmol/L (137-145)
[2021-07-12] MEDS: CHOLECALCIFEROL 1,000 UNITS TABLET 1000 UNITS PO (07:51)
[2021-07-12] MEDS: POTASSIUM CHLORIDE 10 MEQ TABLET.ER PO (07:51)
[2021-07-12] MEDS: OPTI-GEN TAB 1 TABLET PO (07:51)
[2021-07-12] MEDS: VERAPAMIL HCL 180 MG TABLET ER 360 MG PO (07:51)
[2021-07-12] MEDS: LOSARTAN POTASSIUM 100 MG TABLET PO (07:51)
[2021-07-12] MEDS: CALCIUM CARBONATE (OSCAL) 500 MG TABLET PO (07:51)
[2021-07-12] MEDS: POTASSIUM CHLORIDE 20 MEQ TABLET 40 MEQ PO (07:52)
[2021-07-12] MEDS: ASPIRIN 81 MG CHEWABLE TABLET PO (07:52)
[2021-07-12] MEDS: CLOPIDOGREL BISULFATE 75 MG TABLET PO (07:52)
[2021-07-12 07:55] LABS: NT Pro B Type Natriuretic Pept 1190 pg/mL (5-100)
[2021-07-12 08:00] VITALS: PULSE 71
--- NOTE | 2021-07-12 11:00 | PM.DS ---
DS: Admitting Diagnosis Discharge Date Date of service 07/12/2021 at 11:00 a.m. Admitting Diagnosis New CVA DS: Discharge Diagnosis Discharge Diagnosis (1) Hypertensive urgency: Code(s): I16.0 - Hypertensive urgency Status: Acute Assessment and Plan: Current BP is 144/78 blood pressure was 203/106 in the emergency department received clonidine 0.1 mg p.o. x1 in the emergency department with improvement in her blood pressures. states compliance with her antihypertensives, which will be resumed Continue home losartan 100mg PO, Verapamil 360mg PO Trend BP Adjust medications as needed (2) Right hand paresthesia: Code(s): R20.2 - Paresthesia of skin Status: Acute Assessment and Plan: Symptoms were present upon waking yesterday morning monitor on telemetry overnight brain MRI has been ordered carotid Doppler read normal bilaterally neurologic checks q.4 hours while awake. baby aspirin daily lipids Cholesterol 161, Triglycerides 105, LDL 68, HDL 60 Dr. Lynn has been consulted and his input is appreciated. (3) Hypokalemia: Code(s): E87.6 - Hypokalemia Status: Acute Assessment and Plan: Current K 2.7 KCL 40mcg and 40mcg recheck potassium replace as needed (4) Chronic kidney disease, stage 3: Code(s): N18.30 - Chronic kidney disease, stage 3 unspecified Status: Acute Assessment and Plan: Current BUN Cr 24/1.00 GFR 53, creatinine clearance 39 Stable at this time Continue to trend (5) Hypothyroidism: Code(s): E03.9 - Hypothyroidism, unspecified Status: Acute Assessment and Plan: Continue levothyroxine check TSH (6) Acute CVA (cerebrovascular accident): Code(s): I63.9 - Cerebral infarction, unspecified Status: Acute Assessment and Plan: Brain MRI shows Punctate acute left thalamic lacunar infarction, Moderate microangiopathy, mild atrophy. Started on aspirin 81mg Will start atorvastatin, Plavix Echo did not show any cardiac defects that would create clots. . DS: Summary Hospital Course Hospital Course: Patient is an 81-year-old female with a past medical history with HLD, HTN, and previous stroke who presented with numbness and tingling on the right hands and arm. She also stated that she had some unilateral weakness. Head CT showed older stroke, and her brain MRI showed a new CVA. Dr. Lynn was consulted and saw the patient. Patient was started on Plavix, aspirin, and atorvastatin. She will need to follow up with neurology in 3--5 days. She was also noted to be hypertensive while she was admitted. BP have been running 140-180 systolically. She explained that some of this could be a stress response and tasks that she has at home. Patient is ready to go home. She denies chest pain, shortness of breath, nausea, vomiting, weakness and fatigue. Time Spent with Patient Time attestation: Total time spent providing and/or coordinating discharge services:36 minutes Exam Const: General: cooperative, healthy appearing, no acute distress, well developed, alert and awake Nutritional Appearance: well nourished Orientation/consciousness: oriented to person, oriented to place, oriented to time and patient oriented x3 Limitations: no limitations HENMT: Head: normal to inspection Ears: hearing grossly normal bilaterally General nose exam: Normal external nose present Mouth: Yes Normal oral and palatal mucosa present, Yes lip normal and Yes tongue normal Teeth and gingiva: abnormal tooth and associated gingiva and poor dentition Eyes: General: appearance normal, both eyes and all related structures Neck: Neck: normal visual inspection, full ROM, trachea midline and supple Chest: Chest palpation & inspection: normal inspection of the chest Resp: Effort & Inspection: normal respiratory effort and able to speak in complete
--- NOTE | 2021-07-12 11:00 | P.DS_ITS ---
DS: Admitting Diagnosis Discharge Date Date of service 07/12/2021 at 11:00 a.m. Admitting Diagnosis New CVA DS: Discharge Diagnosis Discharge Diagnosis (1) Hypertensive urgency: Code(s): I16.0 - Hypertensive urgency Status: Acute Assessment and Plan: * Current BP is 144/78 * blood pressure was 203/106 in the emergency department * received clonidine 0.1 mg p.o. x1 in the emergency department with improvement in her blood pressures. * states compliance with her antihypertensives, which will be resumed * Continue home losartan 100mg PO, Verapamil 360mg PO * Trend BP * Adjust medications as needed (2) Right hand paresthesia: Code(s): R20.2 - Paresthesia of skin Status: Acute Assessment and Plan: * Symptoms were present upon waking yesterday morning * monitor on telemetry overnight * brain MRI has been ordered * carotid Doppler read normal bilaterally * neurologic checks q.4 hours while awake. * baby aspirin daily * lipids Cholesterol 161, Triglycerides 105, LDL 68, HDL 60 * Dr. Lynn has been consulted and his input is appreciated. (3) Hypokalemia: Code(s): E87.6 - Hypokalemia Status: Acute Assessment and Plan: * Current K 2.7 * KCL 40mcg and 40mcg * recheck potassium * replace as needed (4) Chronic kidney disease, stage 3: Code(s): N18.30 - Chronic kidney disease, stage 3 unspecified Status: Acute Assessment and Plan: * Current BUN Cr 24/1.00 GFR 53, creatinine clearance 39 * Stable at this time * Continue to trend (5) Hypothyroidism: Code(s): E03.9 - Hypothyroidism, unspecified Status: Acute Assessment and Plan: * Continue levothyroxine * check TSH (6) Acute CVA (cerebrovascular accident): Code(s): I63.9 - Cerebral infarction, unspecified Status: Acute Assessment and Plan: * Brain MRI shows Punctate acute left thalamic lacunar infarction, Moderate microangiopathy, mild atrophy. * Started on aspirin 81mg * Will start atorvastatin, Plavix * Echo did not show any cardiac defects that would create clots. . DS: Summary Hospital Course Hospital Course: Patient is an 81-year-old female with a past medical history with HLD, HTN, and previous stroke who presented with numbness and tingling on the right hands and arm. She also stated that she had some unilateral weakness. Head CT showed older stroke, and her brain MRI showed a new CVA. Dr. Lynn was consulted and saw the patient. Patient was started on Plavix, aspirin, and atorvastatin. She will need to follow up with neurology in 3--5 days. She was also noted to be hypertensive while she was admitted. BP have been running 140- 180 systolically. She explained that some of this could be a stress response and tasks that she has at home. Patient is ready to go home. She denies chest pain, shortness of breath, nausea, vomiting, weakness and fatigue. Time Spent with Patient Time attestation: Total time spent providing and/or coordinating discharge services:36 minutes Exam Const: General: cooperative, healthy appearing, no acute distress, well developed, alert and awake Nutritional Appearance: well nourished Orientation/consciousness: oriented to person, oriented to place, oriented to time and patient oriented x3 Limitations: no limitations HENMT: Head: normal to inspection Ears: hearing grossly normal bilaterally
== END 2021-07-12 12:07 | disposition home or self-care (01) | DRG 304 ==
LOC: ANHED 15:38 → ANH2MED 16:15
PROVIDERS: Physician Assistant; Admitting Provider Internal Medicine; Emergency Provider Emergency Medicine; PCP Emergency Medicine; Visit Provider Nurse Practitioner
DX: I16.0 Hypertensive urgency (principal); I63.9 Cerebral infarction, unspecified; G81.94 Hemiplegia, unspecified affecting left nondominant side; I34.0 Nonrheumatic mitral (valve) insufficiency; I12.9 Hypertensive chronic kidney disease with stage 1 through stage 4 chronic kidney disease, or unspecified chronic kidney disease; N18.30 Chronic kidney disease, stage 3 unspecified; E03.9 Hypothyroidism, unspecified; E87.6 Hypokalemia; I35.0 Nonrheumatic aortic (valve) stenosis; M19.90 Unspecified osteoarthritis, unspecified site; N32.81 Overactive bladder; Z96.653 Presence of artificial knee joint, bilateral; Z86.73 Personal history of transient ischemic attack (TIA), and cerebral infarction without residual deficits; R29.810 Facial weakness; R47.1 Dysarthria and anarthria; R20.2 Paresthesia of skin; R13.10 Dysphagia, unspecified
CPT/HCPCS: 36415; 70450; 70553; 71046; 80048; 80053; 80061; 80076; 82607; 83735; 83880; 84132; 84443; 84484; 85025; 85610; 85730; 93005; 93306; 93880; 96365; 96366; 96375; 99285; A9270; A9577; G0378; J3480

== ENCOUNTER 2021-08-01 09:04 | Emergency (ER) | payer OTHER, SELFPAY ==
[2021-08-01] VITALS (33 sets, daily range): BP systolic 155–180; BP diastolic 75–91; PULSE 51–76; RESP 7–17; TEMP 36.2; O2SAT 95–98
--- NOTE | ~2021-08-01 | CT_ITS ---
EXAMINATION: CT brain wo con DATE: 08/01/2021 10:31 INDICATION: Cerebrovascular accident. TECHNIQUE: Computed tomography (CT) of the head was performed without intravenous contrast. The mA wa s adjusted according to patient size. Iterative reconstruction technique was employed. The dose-lengt h product was 681.00 mGy-cm. COMPARISON: Head CT 07/10/2021, brain MRI 07/11/2021 FINDINGS: There are scattered areas of low attenuation in the cerebral white matter and the bilateral deep newman nuclei. There is no intracranial hemorrhage, acute infarction, or abnormal intracranial ma ss lesion. The ventricles are normal in size. There is mild mucosal thickening in the paranasal sinus es. The mastoid air cells are normal. IMPRESSION: 1. Stable moderate nonspecific cerebral white matter disease and disease of the deep newman nuclei, whi ch likely represents chronic small vessel ischemic disease. Reviewed, dictated and finalized at location A. SALVAGER IMPRESSION: 1. Stable moderate nonspecific cerebral white matter disease and disease of the deep newman nuclei, which likely represents chronic small vessel ischemic diseas e.
--- NOTE | ~2021-08-01 | XR_ITS ---
EXAMINATION: XR chest 2V DATE: 08/01/2021 10:00 INDICATION: Hypertension and intermittent chest pain TECHNIQUE: PA and lateral views of the chest were obtained. COMPARISON: Chest radiograph dated 07/10/2021 FINDINGS: The lungs remain clear with no focal airspace opacities, pulmonary edema, pleural effusion or pneumot horax. Mild cardiomegaly. Old proximal right humeral fracture with plate and screw fixation. Mild tho racic spondylosis. IMPRESSION: 1. No acute cardiopulmonary disease. 2. Mild cardiomegaly. Reviewed, dictated and finalized at location B. [employer]
--- NOTE | 2021-08-01 09:50 | ECG_ITS ---
Measurements Intervals [place] Rate: 54 P: -51 CA: 255 QRS: 23 QRSD: 100 T: 44 QT: 482 QTc: 458 Interpretive Statements SINUS BRADYCARDIA WITH FIRST DEGREE AV BLOCK VENTRICULAR PREMATURE COMPLEX CONSIDER LEFT ATRIAL ABNORMALITY LEFT VENTRICULAR HYPERTROPHY AND ST-T CHANGE BORDERLINE ST ABNORMALITY- ANTEROLAT/HIGH LAT LEADS ABNORMAL ECG Electronically Signed On 08-01-2021 10:28:15 NURSE ADVOCATE by Sebastian Edgar D.O.
--- NOTE | 2021-08-01 09:56 | ED.RECABL ---
HPI - Recheck/Abnormal Lab/Rx General Chief Complaint: Recheck/Abnormal Lab/Rx <Natalie John PA-C - Last Filed: 08/01/21 13:59> Stated Complaint: high BP <Natalie John PA-C - Last Filed: 08/01/21 13:59> Time Seen by Provider: 08/01/21 09:25 <Natalie John PA-C - Last Filed: 08/01/21 13:59> Source: patient <Natalie John PA-C - Last Filed: 08/01/21 13:59> Mode of arrival: ambulatory <Natalie John PA-C - Last Filed: 08/01/21 13:59> Limitations: no limitations <Natalie John PA-C - Last Filed: 08/01/21 13:59> History of Present Illness HPI narrative: This is an 81-year-old female that presents to the emergency department for elevated blood pressure. Reports history of hypertension for which she is currently on verapamil, losartan, and metoprolol. She has been taking these medications as prescribed. Reports over the last month her blood pressure has consistently been elevated in the 170s to 190s systolic. Reports over the last week she has been having some intermittent discomfort on the left side of her chest. No known exacerbating factors. It lasts very briefly and resolves on its own. She recently had a stroke, so wanted to come in to be checked out. Denies any current chest pain. Denies vision changes, weakness, numbness, shortness of breath, or lower extremity edema. <Natalie John PA-C - Last Filed: 08/01/21 13:59> Related Data Home Medications: Home Medications Medication Instructions Recorded Confirmed turmeric root extract 500 mg 500 mg PO DAILY 02/01/20 07/17/21 capsule cranberry 400 mg capsule 800 mg PO HS 08/30/20 07/17/21 conjugated estrogens 0.625 mg/gram 0.625 mg VAGINAL EVERY OTHER DAY 12/11/20 07/17/21 vaginal cream mirabegron 50 mg tablet,extended 50 mg PO HS 12/11/20 07/17/21 release 24 hr Macular Vitamin 1 tablet PO BID 01/09/21 07/17/21 cholecalciferol (vitamin D3) 25 mcg PO BID 01/09/21 07/17/21 losartan 100 mg PO QAM 01/09/21 07/17/21 potassium chloride 10 meq PO DAILY 01/09/21 07/17/21 Ocular Vitamins 1 tablet PO DAILY 07/10/21 07/17/21 biotin 2,000 mcg PO DAILY 07/10/21 07/17/21 calcium 630 mg PO BID 07/10/21 07/17/21 <Natalie John PA-C - Last Filed: 08/01/21 13:59> Allergies/Adverse Reactions: Allergies Allergy/AdvReac Type Severity Reaction Status Date / Time hydrocodone Allergy Unknown HALLUCINATI Verified 07/10/21 16:49 ONS oxycodone Allergy Unknown Hallucinati Verified 07/10/21 16:49 ng <Natalie John PA-C - Last Filed: 08/01/21 13:59> Review of Systems Review of Systems: CONSTITUTIONAL: Denies fever EYES: Denies visual changes CARDIOVASCULAR: Denies current chest pain, or edema. RESPIRATORY: Denies dyspnea. NEUROLOGIC: Denies headache, numbness, or weakness. <Natalie John PA-C - Last Filed: 08/01/21 13:59> All systems reviewed & are unremarkable except as noted in HPI and below <Natalie John PA-C - Last Filed: 08/01/21 13:59> [facility] Past Medical History Medical History: Medical History Cerebrovascular accident Brain CT on 07/10/2021 showed small chronic lacunar infarcts of the left thalamus. Chronic kidney disease, stage 3 Diastolic dysfunction Echocardiogram on 02/02/2021 showed normal left ventricular systolic function with an EF of 60% and impaired diastolic relaxation grade 1. History of blood transfusion Hypertension Hypothyroidism Mild aortic stenosis Valve area of 1.39 cm2 on echocardiogram obtained 02/02/2021. Mild mitral valve regurgitation Noted on echocardiogram obtained 02/02/2021. Osteoarthritis Overactive bladder <Natalie John PA-C - Last Filed: 08/01/21 13:59> Surgical History Surgical History: Surgical History History of bilateral knee replacement Left knee: 2007 Right knee: 2018. History of breast surgery (
[2021-08-01 10:49] LABS: Basophils Absolute Auto 0.1 K/mm3 (0.0-0.1); Basophils Percent Auto 1.1 % (0.2-1.2); Eosinophils Absolute Auto 0.1 K/mm3 (0-0.3); Eosinophils Percent Auto 1.1 % (0-4.4); Hematocrit 38.3 % (37.0-47.0); Hemoglobin 13.2 g/dL (12.0-15.0); Immature Granulocyte Absolute 0.02 K/mm3 (0.00-0.031); Immature Granulocyte Percent A 0.4 % (0-0.5); Lymphocytes Absolute Auto 1.03 K/mm3 (0.9-3.2); Lymphocytes Percent Auto 18.7 % (18.3-44.2); Mean Corpuscular HGB Conc 34.5 g/dl (32-36); Mean Corpuscular Hemoglobin 33.3 pg (26-34); Mean Corpuscular Volume 96.7 fl (80-100); Mean Platelet Volume 9.1 fl (7.4-10.4); Monocytes Absolute Auto 0.4 K/mm3 (0.1-0.6); Monocytes Percent Auto 7.3 % (2.6-8.5); Neutrophils Absolute Auto 3.9 K/mm3 (1.3-6.7); Neutrophils Percent Auto 71.4 % (45.5-73.1); Platelet Count Result 265 k/mm3 (150-375); Red Blood Count 3.96 M/mm3 (4.2-5.4); Red Cell Distribution Width 12.3 % (11.5-14.5); White Blood Count 5.5 K/mm3 (4.5-10.0)
[2021-08-01 11:01] LABS: Prothrombin Time 13.1 Seconds (11.1-14.7)
[2021-08-01 11:03] LABS: Anion Gap 3 mmol/L (8-16); Blood Urea Nitrogen 23 mg/dL (7-17); Calcium 8.6 mg/dL (8.4-10.2); Carbon Dioxide 33 mmol/L (22-30); Chloride 100 mmol/L (98-107); Estimated CRCL calculation 36 ml/min; Estimated Glomerular Filt Rate 47; Glucose 105 mg/dL (65-110); Potassium 3.7 mmol/L (3.4-5.0); Sodium 136 mmol/L (137-145)
[2021-08-01 11:14] LABS: Troponin I < 0.012 ng/mL (0.000-0.034)
[2021-08-01] MEDS: hydrALAZINE HCL 20 MG/ML VIAL 10 MG IV PUSH (13:10)
== END 2021-08-01 14:28 | disposition home or self-care (01) ==
PROVIDERS: Physician Assistant; Emergency Provider Emergency Medicine; PCP Emergency Medicine
DX: I12.9 Hypertensive chronic kidney disease with stage 1 through stage 4 chronic kidney disease, or unspecified chronic kidney disease (principal); R07.9 Chest pain, unspecified; N18.30 Chronic kidney disease, stage 3 unspecified; E03.9 Hypothyroidism, unspecified
CPT/HCPCS: 36415; 70450; 71046; 80048; 84484; 85025; 85610; 85730; 93005; 96374; 99284; J0360

== ENCOUNTER → 2021-12-28 14:59 | Outpatient (CLI) | payer OTHER, SELFPAY ==
--- NOTE | ~2021-12-28 | US_ITS ---
EXAMINATION: US renal BI DATE: 12/28/2021 16:04 INDICATION: Chronic kidney disease stage IIIB. TECHNIQUE: Multiple ultrasound grayscale images of the kidneys were obtained. COMPARISON: Ultrasound 02/25/2008 FINDINGS: The right kidney measures 9.1 x 3.7 x 4.5 cm. The left kidney measures 9.6 x 4.7 x 3.8 cm. The kidney s demonstrate normal parenchymal echogenicity. There is a 10 mm cyst in left kidney. There is no hydr onephrosis. The bladder is normal. IMPRESSION: 1. Normal kidney sizes. No hydronephrosis. Reviewed, dictated and finalized at location A.
== END ==
PROVIDERS: PCP Nurse Practitioner; Visit Provider Internal Medicine Nephrology
DX: N18.32 Chronic kidney disease, stage 3b (principal)
CPT/HCPCS: 76775

== ENCOUNTER → 2022-03-08 09:53 | Outpatient (CLI) | payer OTHER, SELFPAY ==
--- NOTE | ~2022-03-08 | MM_ITS ---
EXAMINATION: MM screening [facility] BI w [facility] HISTORY: Screening mammogram TECHNIQUE: Craniocaudal and mediolateral oblique 3-D tomosynthesis images were obtained and synthetic 2-D images were generated. CAD analysis was submitted and interpreted. COMPARISON: 03/06/2021, 09/19/2020, 12/02/2019 BREAST PARENCHYMAL COMPOSITION: The breasts are heterogeneously dense, which may obscure small masses . FINDINGS: There is no suspicious mass, calcification, or architectural distortion to suggest malignan cy in either breast. There has been no suspicious interval change. IMPRESSION: 1. No mammographic evidence of malignancy. 2. Recommend routine screening mammography in one year. BI-RADS Category 1: Negative Reviewed, dictated and finalized at location A.
== END ==
PROVIDERS: PCP Nurse Practitioner; Visit Provider Nurse Practitioner
DX: Z12.31 Encounter for screening mammogram for malignant neoplasm of breast (principal)
CPT/HCPCS: 77063; 77067

== ENCOUNTER 2022-03-11 11:17 | Outpatient (CLI) | payer OTHER, SELFPAY | END 2022-03-11 11:18 | disposition home or self-care (01) | PROVIDERS: PCP Nurse Practitioner; Visit Provider Nurse Practitioner | DX: H93.19 Tinnitus, unspecified ear (principal); H90.3 Sensorineural hearing loss, bilateral | CPT/HCPCS: 92557; 92567 ==

== ENCOUNTER 2022-03-24 10:23 | Outpatient (CLI) | payer OTHER, SELFPAY ==
--- NOTE | ~2022-03-24 | MR_ITS ---
EXAMINATION: MR abdomen wo con DATE: 03/24/2022 11:33 INDICATION: Primary hyperaldosteronism. Hypertension. TECHNIQUE: Magnetic resonance imaging (MRI) of the abdomen was performed without intravenous contrast . COMPARISON: None. FINDINGS: There are cysts in the liver measuring up to 10 mm. The gallbladder and spleen are normal. There are multiple cystic lesions in the pancreas measuring up to 5 mm. Left adrenal gland is normal. There is a 2.0 cm mass in right adrenal gland containing microscopic fat, consistent with an adenoma. There ar e cysts in the kidneys measuring up to 10 mm in the left. There are no dilated loops of bowel. There are no pathologically enlarged lymph nodes. There is no free intraperitoneal fluid. IMPRESSION: 1. 2.0 cm right adrenal adenoma. 2. Cystic lesions of the pancreas measuring up to 5 mm. The differential diagnosis includes pseudocys t, intraductal papillary mucinous neoplasm (IPMN), mucinous cystic neoplasm (MCN), serous cystadenoma , and neuroendocrine tumor. Consider abdomen MRI without and with contrast in two years, but only if the patient would be considered a possible future surgical candidate. Reviewed, dictated and finalized at location A. IMPRESSION: 1. 2.0 cm right adrenal adenoma. 2. Cystic lesions of the pancreas measuring up to 5 mm. The differential diagno sis includes pseudocyst, intraductal papillary mucinous neoplasm (IPMN), mucino us cystic neoplasm (MCN), serous cystadenoma, and neuroendocrine tumor. Conside r abdomen MRI without and with contrast in two years, but only if the patient w ould be considered a possible future surgical candidate.
== END 2022-03-24 10:24 | disposition home or self-care (01) ==
PROVIDERS: PCP Nurse Practitioner; Visit Provider Internal Medicine Nephrology
DX: E26.09 Other primary hyperaldosteronism (principal); I10 Essential (primary) hypertension; D35.01 Benign neoplasm of right adrenal gland
CPT/HCPCS: 74181

== ENCOUNTER 2022-04-17 14:07 | Emergency (ER) | payer OTHER, SELFPAY ==
--- NOTE | ~2022-04-17 | CT_ITS ---
EXAMINATION: CT cervical spine wo con DATE: 04/17/2022 14:34 INDICATION: head injury, on lavix TECHNIQUE: Computed tomography (CT) of the cervical spine was performed without intravenous contrast. Automated exposure control and iterative reconstruction technique were employed. The dose-length pro duct was 172.60 mGy-cm. COMPARISON: None FINDINGS: Vertebral Body Alignment: Intact. Craniocervical and atlantoaxial alignment: Moderate degenerative change. Alignment intact. Osseous structures/fracture: No evidence of a lytic or blastic process in the visualized spine. No e vidence of acute fracture. Cervical soft tissues: The paraspinal soft tissues planes are maintained. Degenerative changes: Degenerative disc disease and facet arthropathy, without severe neural foramina l or central canal narrowing. IMPRESSION: No acute fracture or traumatic malalignment in the cervical spine. Reviewed, dictated and finalized at location K.
--- NOTE | ~2022-04-17 | CT_ITS ---
EXAMINATION: CT brain wo con DATE: 04/17/2022 14:34 INDICATION: Head injury. TECHNIQUE: Computed tomography (CT) of the head was performed without intravenous contrast. The mA wa s adjusted according to patient size. Iterative reconstruction technique was employed. The dose-lengt h product was 605.33 mGy-cm. COMPARISON: Head CT 08/01/2021, brain MRI 07/11/2021 FINDINGS: There are scattered areas of low attenuation in the cerebral white matter. There is no intr acranial hemorrhage, acute infarction, or abnormal intracranial mass lesion. The ventricles are mary l in size. There are likely changes of ocular lens replacement surgeries. There is mild mucosal thick ening in the paranasal sinuses. The mastoid air cells are normal. IMPRESSION: 1. Stable moderate nonspecific cerebral white matter disease, which likely represents chronic small v essel ischemic disease. Reviewed, dictated and finalized at location A. IMPRESSION: 1. Stable moderate nonspecific cerebral white matter disease, which likely repr esents chronic small vessel ischemic disease.
[2022-04-17 14:08] VITALS: BP 174/95; PULSE 80; RESP 16; TEMP 36.2; O2SAT 98
--- NOTE | 2022-04-17 14:53 | ED.HEATRA ---
HPI - Head Injury General Chief complaint: Head Injury Stated complaint: struck head/ on plavix Time Seen by Provider: 04/17/22 14:22 History of Present Illness HPI Narrative: 81-year-old female who is on Plavix presents the emergency room for evaluation of a head injury that occurred 2 hours prior to arrival. Patient states that she was removing blackberry brush from her garden when she struck her head on an iron rock fence. Patient denies any LOC or altered mental status. Denies any headaches dizziness or lightheadedness. Denies any nausea or vomiting. Has a small scalp laceration Related Data Home Medications Medication Instructions Recorded Confirmed turmeric root extract 500 mg 500 mg PO DAILY 02/01/20 02/19/22 capsule cranberry 400 mg capsule 800 mg PO HS 08/30/20 02/19/22 biotin 2,000 mcg PO DAILY 07/10/21 02/19/22 calcium carbonate 400 mg calcium 400 mg PO BID 09/25/21 02/19/22 (1,000 mg) chewable tablet (GOPOP.TV Ultra) tetrahydrozoline 0.05 % eye drops 1 drp EACH EYE BID 11/13/21 02/19/22 carvedilol 6.25 mg tablet 6.25 mg PO BID 02/06/22 02/19/22 cholecalciferol (vitamin D3) 25 25 mcg PO DAILY 03/26/22 mcg (1,000 unit) capsule levothyroxine 137 mcg tablet 137 mcg PO DAILY 03/26/22 melatonin 3 mg capsule 3 mg PO QHS 03/26/22 potassium chloride 10 mEq 20 meq PO TID 03/26/22 tablet,extended release Allergies Allergy/AdvReac Type Severity Reaction Status Date / Time hydrocodone Allergy Unknown HALLUCINATI Verified 03/26/22 09:55 ONS oxycodone Allergy Unknown Hallucinati Verified 03/26/22 09:55 ng Review of Systems Review of Systems: CONSTITUTIONAL: Denies fever, chills, or sweats. EYES: Denies visual changes, redness, or discharge. ENT: Denies rhinorrhea, congestion, sore throat, or otalgia. CARDIOVASCULAR: Denies chest pain, palpitations, or edema. RESPIRATORY: Denies cough or dyspnea. GASTROINTESTINAL: Denies abdominal pain, nausea, vomiting, or diarrhea. GENITOURINARY: Denies dysuria or hematuria. SKIN: Denies rash or itching. MUSCULOSKELETAL: Denies back pain, joint pain, or myalgia. NEUROLOGIC: Denies headache, numbness, dizziness, or weakness. PSYCHIATRIC: Denies anxiety or depression. [facility] Past Medical History Medical History Abnormal finding on breast imaging Abnormal magnetic resonance imaging of right breast Adenoma of right nipple Anxiety Breast mass, right Cerebrovascular accident Brain CT on 07/10/2021 showed small chronic lacunar infarcts of the left thalamus. Chronic kidney disease, stage 3 Diastolic dysfunction Echocardiogram on 02/02/2021 showed normal left ventricular systolic function with an EF of 60% and impaired diastolic relaxation grade 1. Mild aortic stenosis Valve area of 1.39 cm2 on echocardiogram obtained 02/02/2021. Mild mitral valve regurgitation Noted on echocardiogram obtained 02/02/2021. Osteoarthritis Overactive bladder Surgical History Surgical History History of bilateral knee replacement Left knee: 2007 Right knee: 2018. History of breast surgery (01/17/21) Right axillary sentinel lymph node dissection with excision of right breast nipple and duct. Pathology showed 3 benign lymph nodes as well as a benign nipple adenoma with usual intraductal hyperplasia with no evidence of malignancy. History of cataract extraction History of colonoscopy Diverticulosis and internal hemorrhoids. History of hammertoe correction History of hysterectomy History of open reduction and internal fixation (ORIF) procedure Right proximal humerus surgical neck fracture. Right hip fracture with trochanteric nail. Family History Family History Mother Family history of osteoporosis, Onset Age: 102 Uterine cancer Father Acute myocardial infarction, Onset Age: 59 Diabetes
== END 2022-04-17 15:10 | disposition home or self-care (01) ==
PROVIDERS: Emergency Provider Nurse Practitioner Family; PCP Nurse Practitioner
DX: S09.90XA Unspecified injury of head, initial encounter (principal); N18.30 Chronic kidney disease, stage 3 unspecified; I08.0 Rheumatic disorders of both mitral and aortic valves; Z86.73 Personal history of transient ischemic attack (TIA), and cerebral infarction without residual deficits; N32.81 Overactive bladder; M19.90 Unspecified osteoarthritis, unspecified site; Z96.653 Presence of artificial knee joint, bilateral; Z98.49 Cataract extraction status, unspecified eye; Z90.710 Acquired absence of both cervix and uterus; R90.82 White matter disease, unspecified; W22.8XXA Striking against or struck by other objects, initial encounter
CPT/HCPCS: 70450; 72125; 99284

== ENCOUNTER 2022-06-13 09:50 | Outpatient (CLI) | payer OTHER, SELFPAY ==
--- NOTE | ~2022-06-13 | DEXA_ITS ---
Bone Density Report Name: ARMEN NARVAEZ Age: 81 Sex: Female Ethnicity: White Date of : 1940 Indication: postmenopausal; screening for osteoporosis; height loss; hysterectomy; Referring Provider: RITA BLACKWELL Study: Bone densitometry was performed. Exam Date: June 13, 2022 Accession number: [id number] Bone Density: Region BMD T-score Z-score Classification AP Spine(L1-L4) 1.147 0.9 3.7 Normal Femoral Neck (Left) 0.564 -2.6 -0.1 Osteoporosis Total Hip (Left) 0.650 -2.4 -0.1 Osteopenia World Health Organization criteria for BMD impression classify patients as: Normal (T-score at or above -1.0), Osteopenia (T-score between -1.0 and -2.5), or Osteoporosis (T-score at or below -2.5). 10-year Fracture Risk: FRAX not reported because: Some T-score for Spine Total or Hip Total or Femoral Neck at or below -2.5 Clinical Information Provided by Patient: Has used the following medications: Vitamin D, Calcium Has the following medical conditions: Hysterectomy Patient maximum height was 70.5 Menopause Age: 37 Onset of menses at age 9 Number of children 6 Impression: The patient has osteoporosis, based on the Left Femoral Neck T-score. Discussion: INCREASED RISK OF FRACTURE. BONE DENSITY IS UNDESIRABLY LOW AT ONE OR MORE SKELETAL SITES, CONSISTENT WITH POSTMENOPAUSAL OSTEOPOROSIS. This patient's lowest T-score meets the World Health Organization's (WHO) criteria for osteoporosis at one or more sites (T-score -2.5 or below). In untreated patients, the risk of osteoporotic fracture increases approximately two-fold for each 1.0 SD decrease in T-score. Low bone density is not the only risk factor for fracture; also consider factors such as patient's age, frailty or poor health, risk of falling, risk of injury, previous osteoporotic fracture, family history of osteoporosis, cigarette smoking, low body weight, etc. Not everyone with low bone mineral density has osteoporosis; osteomalacia and other metabolic bone disorders should also be considered. Patients who have osteoporosis should be evaluated for specific diseases and conditions (secondary causes) that may cause or contribute to bone loss. The [place] [employer] Endocrinologists (AACE) and National Osteoporosis Foundation (NOF) recommend pharmacologic intervention for all postmenopausal women whose T-score is in this range. The patient should follow a healthful lifestyle (good nutrition with adequate calcium and vitamin D, and appropriate weight-bearing exercise). Follow-Up: Consider a repeat BMD and Vertebral Fracture Assessment (VFA) exam in 2 years or sooner if medically necessary, to reassess this patient's status. Reported by: CEASAR on 06/13/2022 10:16:00 AM. Reviewed, dictated and finalized at location AJanuary MERAZ
== END 2022-06-13 09:51 | disposition home or self-care (01) ==
PROVIDERS: PCP Family Medicine; Visit Provider Nurse Practitioner
DX: Z78.0 Asymptomatic menopausal state (principal); M81.0 Age-related osteoporosis without current pathological fracture; M85.852 Other specified disorders of bone density and structure, left thigh
CPT/HCPCS: 77080

== ENCOUNTER 2022-08-27 12:25 | Outpatient (CLI) | payer OTHER, SELFPAY ==
[2022-08-27 14:12] LABS: Anion Gap 5 mmol/L (8-16); Blood Urea Nitrogen 53 mg/dL (7-17); Calcium 8.4 mg/dL (8.4-10.2); Carbon Dioxide 20 mmol/L (22-30); Chloride 101 mmol/L (98-107); Estimated Glomerular Filt Rate 24; Glucose 85 mg/dL (65-110); Potassium 5.5 mmol/L (3.4-5.0); Sodium 126 mmol/L (137-145)
== END 2022-08-27 12:26 | disposition home or self-care (01) ==
PROVIDERS: PCP Family Medicine; Visit Provider Internal Medicine Nephrology
DX: E87.6 Hypokalemia (principal)
CPT/HCPCS: 36415; 80069

== ENCOUNTER 2022-08-29 13:26 | Outpatient (CLI) | payer OTHER, SELFPAY ==
[2022-08-29 14:16] LABS: Creatine Kinase 38 U/L (30-135)
[2022-08-29 14:47] LABS: Cortisol Random 6.01 ug/dL
[2022-08-29 15:10] LABS: Creatinine Urine 67.1 mg/dL; Total Protein Urine Random 10 mg/dL; Ur Ttl Prot Creatinine Ratio 0.15 mg/mg (0-0.20)
[2022-08-29 15:14] LABS: Potassium Urine Random 32.4 meq/L
[2022-09-03 11:00] LABS: Renin 0.39 ng/mL/h (0.25-5.82)
== END 2022-08-29 13:27 | disposition home or self-care (01) ==
PROVIDERS: PCP Family Medicine; Visit Provider Internal Medicine Nephrology
DX: E87.5 Hyperkalemia (principal); I12.9 Hypertensive chronic kidney disease with stage 1 through stage 4 chronic kidney disease, or unspecified chronic kidney disease; N18.4 Chronic kidney disease, stage 4 (severe)
CPT/HCPCS: 36415; 82088; 82533; 82550; 82570; 84133; 84156; 84244

== ENCOUNTER 2022-09-20 07:47 | Outpatient (CLI) | payer OTHER, SELFPAY | END 2022-09-20 07:48 | disposition home or self-care (01) | LOC: ANHOUTPT 07:50 | PROVIDERS: PCP Family Medicine; Visit Provider Internal Medicine Nephrology | DX: E87.5 Hyperkalemia (principal) | CPT/HCPCS: 36415; 96372; J0834 ==

== ENCOUNTER 2022-10-16 08:08 | Outpatient (CLI) | payer OTHER, SELFPAY ==
[2022-10-16 18:53] LABS: Cholesterol 135 mg/dL (0-200); HDL Direct 70 mg/dL; Triglycerides 83 mg/dL (<150)
[2022-10-16 19:03] LABS: Hematocrit 35.3 % (37.0-47.0); Hemoglobin 11.5 g/dL (12.0-15.0); Mean Corpuscular HGB Conc 32.6 g/dl (32-36); Mean Corpuscular Hemoglobin 33.4 pg (26-34); Mean Corpuscular Volume 102.6 fl (80-100); Mean Platelet Volume 9.5 fl (7.4-10.4); Platelet Count Result 260 k/mm3 (150-375); Red Blood Count 3.44 M/mm3 (4.2-5.4); Red Cell Distribution Width 13.4 % (11.5-14.5)
[2022-10-16 19:04] LABS: LDL Cholesterol Direct 34 mg/dL; Parathyroid Intact 66.2 pg/mL (7.5-53.5)
[2022-10-16 19:07] LABS: Anion Gap 4 mmol/L (8-16); Blood Urea Nitrogen 38 mg/dL (7-17); Calcium 8.5 mg/dL (8.4-10.2); Carbon Dioxide 25 mmol/L (22-30); Chloride 107 mmol/L (98-107); Estimated Glomerular Filt Rate 24; Glucose 71 mg/dL (65-110); Phosphorus 4.2 mg/dL (2.5-4.5); Potassium 5.9 mmol/L (3.4-5.0); Sodium 136 mmol/L (137-145)
[2022-10-16 19:23] LABS: Thyroid Stimulating Hormone Reflex 0.613 uIU/mL (0.465-4.68)
[2022-10-16 19:26] LABS: Creatinine Urine 65.3 mg/dL; Total Protein Urine Random 10 mg/dL; Ur Ttl Prot Creatinine Ratio 0.15 mg/mg (0-0.20)
== END 2022-10-16 08:09 | disposition home or self-care (01) ==
LOC: ANHGOSHLAB 08:10
PROVIDERS: Nurse Practitioner; PCP Family Medicine; Visit Provider Internal Medicine Nephrology
DX: N18.4 Chronic kidney disease, stage 4 (severe) (principal); E78.5 Hyperlipidemia, unspecified; E03.9 Hypothyroidism, unspecified
CPT/HCPCS: 36415; 80061; 80069; 82570; 83970; 84156; 84443; 85027

== ENCOUNTER 2022-11-15 11:04 | Outpatient (CLI) | payer OTHER, SELFPAY ==
[2022-11-15 19:14] LABS: INR 1.1; Prothrombin Time 13.6 Seconds (11.1-14.7)
== END 2022-11-15 11:05 | disposition home or self-care (01) ==
LOC: ANHGOSHLAB 11:05
PROVIDERS: PCP Family Medicine; Visit Provider Nurse Practitioner
DX: R04.0 Epistaxis (principal)
CPT/HCPCS: 36415; 85610

== ENCOUNTER 2023-02-04 08:43 | Outpatient (CLI) | payer OTHER, SELFPAY ==
[2023-02-04 17:00] LABS: Albumin Level 4.2 g/dL (3.5-5.1); Anion Gap 8 mmol/L (8-16); Blood Urea Nitrogen 50 mg/dL (7-17); Calcium 8.5 mg/dL (8.4-10.2); Carbon Dioxide 26 mmol/L (22-30); Chloride 91 mmol/L (98-107); Estimated Glomerular Filt Rate 20; Glucose 90 mg/dL (65-110); Phosphorus 4.1 mg/dL (2.5-4.5); Potassium 4.7 mmol/L (3.4-5.0); Sodium 125 mmol/L (137-145)
[2023-02-04 17:01] LABS: Hematocrit 33.8 % (37.0-47.0); Hemoglobin 10.9 g/dL (12.0-15.0); Mean Corpuscular HGB Conc 32.2 g/dl (32-36); Mean Corpuscular Hemoglobin 32.4 pg (26-34); Mean Corpuscular Volume 100.6 fl (80-100); Mean Platelet Volume 9.1 fl (7.4-10.4); Platelet Count Result 317 k/mm3 (150-375); Red Blood Count 3.36 M/mm3 (4.2-5.4); Red Cell Distribution Width 12.7 % (11.5-14.5); White Blood Count 5.2 K/mm3 (4.5-10.0)
[2023-02-04 17:13] LABS: Total Protein Urine Random 13 mg/dL
== END 2023-02-04 08:44 | disposition home or self-care (01) ==
LOC: ANHGOSHLAB 08:45
PROVIDERS: Nurse Practitioner; PCP Family Medicine; Visit Provider Internal Medicine Nephrology
DX: N18.4 Chronic kidney disease, stage 4 (severe) (principal); R04.0 Epistaxis
CPT/HCPCS: 36415; 80069; 82570; 83970; 84156; 85027; 85610

== ENCOUNTER 2023-02-27 14:28 | Emergency (ER) | payer OTHER, SELFPAY ==
[2023-02-27 14:39] VITALS: BP 145/76; PULSE 79; RESP 16; TEMP 36.4; O2SAT 100
--- NOTE | 2023-02-27 14:57 | ED.FEMALEGU ---
HPI - Female Genitourinary General Chief complaint: Urogenital-Female Stated complaint: Burning during urination Time Seen by Provider: 02/27/23 14:50 Source: patient, RN notes reviewed and old records reviewed Mode of arrival: ambulatory Limitations: no limitations History of Present Illness HPI Narrative: Patient presents today complaining of a 2 day history of external genital irritation and white vaginal discharge. Denies abdominal pain, dysuria, hematuria. States she had similar symptoms a few years ago and was diagnosed with a UTI. 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 Related Data Home Medications Medication Instructions Recorded Confirmed turmeric root extract 500 mg 500 mg PO DAILY 02/01/20 02/27/23 capsule cranberry 400 mg capsule 800 mg PO HS 08/30/20 02/27/23 biotin 2,000 mcg PO DAILY 07/10/21 02/27/23 calcium carbonate 400 mg calcium 400 mg PO BID 09/25/21 02/27/23 (1,000 mg) chewable tablet (Tums Ultra) carvedilol 6.25 mg tablet (Coreg) 6.25 mg PO BID 02/06/22 02/27/23 cholecalciferol (vitamin D3) 25 25 mcg PO DAILY 03/26/22 02/27/23 mcg (1,000 unit) capsule tetrahydrozoline 0.05 % eye drops 1 drp EACH EYE TID 10/01/22 02/27/23 vibegron 75 mg tablet (Gemtesa) 75 mg PO DAILY 10/01/22 02/27/23 Allergies Allergy/AdvReac Type Severity Reaction Status Date / Time hydrocodone Allergy Unknown HALLUCINATI Verified 02/18/23 09:11 ONS oxycodone Allergy Unknown Hallucinati Verified 02/18/23 09:11 ng Review of Systems Review of Systems: CONSTITUTIONAL: Denies body aches, fever, chills, or sweats. EYES: Denies visual changes, redness, or discharge. ENT: Denies rhinorrhea, congestion, sore throat, or otalgia. CARDIOVASCULAR: Denies chest pain, palpitations, or edema. RESPIRATORY: Denies cough or dyspnea. GASTROINTESTINAL: Denies abdominal pain, nausea, vomiting, or diarrhea. GENITOURINARY: Denies dysuria or hematuria.+ vulvar irritation, vaginal discharge SKIN: Denies rash, itching, or wounds. MUSCULOSKELETAL: Denies back pain, joint pain, or myalgia. NEUROLOGIC: Denies headache, numbness, tingling, or weakness. PSYCH: Denies depression or anxiety. [facility] Past Medical History Medical History Abnormal finding on breast imaging Abnormal magnetic resonance imaging of right breast Adenoma of right nipple Anxiety Breast mass, right Cerebrovascular accident Brain CT on 07/10/2021 showed small chronic lacunar infarcts of the left thalamus. Diastolic dysfunction Echocardiogram on 02/02/2021 showed normal left ventricular systolic function with an EF of 60% and impaired diastolic relaxation grade 1. Mild aortic stenosis Valve area of 1.39 cm2 on echocardiogram obtained 02/02/2021. Mild mitral valve regurgitation Noted on echocardiogram obtained 02/02/2021. Osteoarthritis Overactive bladder Surgical History Surgical History History of bilateral knee replacement Left knee: 2007 Right knee: 2018. History of breast surgery (01/17/21) Right axillary sentinel lymph node dissection with excision of right breast nipple and duct. Pathology showed 3 benign lymph nodes as well as a benign nipple adenoma with usual intraductal hyperplasia with no evidence of malignancy. History of cataract extraction History of colonoscopy Diverticulosis and internal hemorrhoids. History of hammertoe correction History of hysterectomy History of open reduction and internal fixation (ORIF) procedure Right proximal humerus surgical neck fracture. Right hip fracture with trochanteric nail. Family History Family History Mother Family history of osteoporosis, Onset Age: 102 Uterine cancer Father Acute myocardial infarct
== END 2023-02-27 15:08 | disposition home or self-care (01) ==
PROVIDERS: Emergency Provider Nurse Practitioner; PCP Family Medicine
DX: N30.01 Acute cystitis with hematuria (principal); Z86.73 Personal history of transient ischemic attack (TIA), and cerebral infarction without residual deficits; I35.0 Nonrheumatic aortic (valve) stenosis; I34.0 Nonrheumatic mitral (valve) insufficiency; M19.90 Unspecified osteoarthritis, unspecified site; Z96.653 Presence of artificial knee joint, bilateral; F41.9 Anxiety disorder, unspecified; Z79.82 Long term (current) use of aspirin
CPT/HCPCS: 36415; 80069; 81003; 87086; 99213; G0463

== ENCOUNTER 2023-02-27 15:10 | Outpatient (CLI) | payer OTHER, SELFPAY ==
[2023-02-27 19:46] LABS: Albumin Level 3.8 g/dL (3.5-5.1); Anion Gap 4 mmol/L (8-16); Blood Urea Nitrogen 59 mg/dL (7-17); Calcium 8.6 mg/dL (8.4-10.2); Carbon Dioxide 26 mmol/L (22-30); Chloride 101 mmol/L (98-107); Estimated Glomerular Filt Rate 19; Glucose 94 mg/dL (65-110); Phosphorus 4.8 mg/dL (2.5-4.5); Potassium 4.7 mmol/L (3.4-5.0); Sodium 131 mmol/L (137-145)
== END 2023-02-27 15:11 | disposition home or self-care (01) ==
LOC: ANHGOSHLAB 15:12
PROVIDERS: PCP Family Medicine; Visit Provider Internal Medicine Nephrology
DX: E87.1 Hypo-osmolality and hyponatremia (principal)
CPT/HCPCS: 36415; 80069

== ENCOUNTER → 2023-05-15 13:29 | Outpatient (CLI) | payer OTHER, SELFPAY ==
--- NOTE | ~2023-05-15 | MM_ITS ---
EXAMINATION: MM screening dayanara BI w butch HISTORY: Screening TECHNIQUE: Craniocaudal and mediolateral oblique 3-D tomosynthesis images were obtained and synthetic 2-D images were generated. CAD analysis was submitted and interpreted. COMPARISON: Comparison to multiple prior studies sequentially, with oldest reviewed study dated 11/17. BREAST PARENCHYMAL COMPOSITION: The breasts are heterogeneously dense, which may obscure small masses . FINDINGS: There is no evidence of suspicious mass, calcification, or architectural distortion to sugg est malignancy in either breast. There has been no suspicious interval change. IMPRESSION: 1. No mammographic evidence of malignancy. 2. Recommend routine screening mammography in one year. BI-RADS Category 1: Negative Reviewed, dictated and finalized at location A.
== END ==
PROVIDERS: PCP Nurse Practitioner Family; Visit Provider Nurse Practitioner Family
DX: Z12.31 Encounter for screening mammogram for malignant neoplasm of breast (principal)
CPT/HCPCS: 77063; 77067

== ENCOUNTER 2023-06-10 08:24 | Outpatient (CLI) | payer OTHER, SELFPAY ==
[2023-06-10 18:33] LABS: Albumin Level 3.9 g/dL (3.5-5.1); Anion Gap 9 mmol/L (8-16); Blood Urea Nitrogen 62 mg/dL (7-17); Calcium 8.6 mg/dL (8.4-10.2); Carbon Dioxide 22 mmol/L (22-30); Chloride 103 mmol/L (98-107); Estimated Glomerular Filt Rate 19; Glucose 90 mg/dL (65-110); Phosphorus 3.9 mg/dL (2.5-4.5); Sodium 134 mmol/L (137-145)
[2023-06-10 18:36] LABS: Creatinine Urine 47.3 mg/dL; Total Protein Urine Random 10 mg/dL; Ur Ttl Prot Creatinine Ratio 0.21 mg/mg (0-0.20)
[2023-06-10 18:46] LABS: Parathyroid Intact 98.3 pg/mL (7.5-53.5)
[2023-06-10 19:04] LABS: Thyroid Stimulating Hormone 0.025 uIU/mL (0.465-4.680)
[2023-06-10 19:32] LABS: Hematocrit 34.6 % (37.0-47.0); Mean Corpuscular HGB Conc 31.8 g/dl (32-36); Mean Corpuscular Hemoglobin 32.9 pg (26-34); Mean Corpuscular Volume 103.6 fl (80-100); Mean Platelet Volume 10.3 fl (7.4-10.4); Platelet Count Result 258 k/mm3 (150-375); Red Blood Count 3.34 M/mm3 (4.2-5.4); Red Cell Distribution Width 12.7 % (11.5-14.5); White Blood Count 4.9 K/mm3 (4.5-10.0)
== END 2023-06-10 08:25 | disposition home or self-care (01) ==
PROVIDERS: PCP Nurse Practitioner Family; Visit Provider Internal Medicine Nephrology
DX: E87.1 Hypo-osmolality and hyponatremia (principal); I12.9 Hypertensive chronic kidney disease with stage 1 through stage 4 chronic kidney disease, or unspecified chronic kidney disease; N18.4 Chronic kidney disease, stage 4 (severe); E87.5 Hyperkalemia
CPT/HCPCS: 36415; 80069; 82570; 83970; 84156; 84443; 85027

== ENCOUNTER 2023-06-30 11:10 | Outpatient (CLI) | payer OTHER, SELFPAY ==
[2023-06-30 20:18] LABS: Appearance Urine Clear (Clear); Bacteria Urine None Seen /hpf; Bilirubin Urine Negative (Negative); Blood Urine Negative (Negative); Color Urine Yellow (Yellow); Glucose Urine UA Negative (Negative); Ketones Urine Negative (Negative); Leukocyte Esterase Ur Trace LEU/UL (NEGATIVE); Nitrate Urine Negative (Negative); Non Pathogenic Casts 0-2; Protein Urine Negative (Negative); RBC Urine 0-2 /hpf (0-2); Specific Grav Ur 1.009 (1.001-1.035); Squamous Epithelial Cell Urine Few /hpf (Few); Urobilinogen Urine 0.2 mg/dL (<2.0); WBC Urine 0-5 /hpf (0-3); pH Urine 5.5 (5.0-9.0)
[2023-06-30 20:24] LABS: Add Urine Microscopic? YES
[2023-06-30 20:52] LABS: Albumin Level 3.7 g/dL (3.5-5.1); Anion Gap -1 mmol/L (8-16); Blood Urea Nitrogen 61 mg/dL (7-17); Calcium 8.3 mg/dL (8.4-10.2); Carbon Dioxide 30 mmol/L (22-30); Chloride 106 mmol/L (98-107); Estimated Glomerular Filt Rate 20; Glucose 115 mg/dL (65-110); Phosphorus 4.7 mg/dL (2.5-4.5); Potassium 4.9 mmol/L (3.4-5.0); Sodium 135 mmol/L (137-145)
== END 2023-06-30 11:11 | disposition home or self-care (01) ==
LOC: ANHGOSHLAB 11:12
PROVIDERS: PCP Nurse Practitioner Family; Visit Provider Internal Medicine Nephrology
DX: N18.4 Chronic kidney disease, stage 4 (severe) (principal)
CPT/HCPCS: 36415; 80069; 81001

== ENCOUNTER → 2023-07-14 13:49 | Outpatient (CLI) | payer OTHER, SELFPAY ==
--- NOTE | ~2023-07-14 | US_ITS ---
US renal BI 07/14/2023 14:06 Procedure: Realtime transabdominal ultrasound of the kidneys and bladder. Indication: Chronic kidney disease stage IV Comparison: Ultrasound dated 12/28/2021 Findings: Renal echotexture is normal bilaterally without hydronephrosis, contour deforming mass or r enal calculus. The right kidney measures 8 cm and left kidney measures 8.8 cm. There is a left renal cyst measuring 1.6 x 1.3 x 1.2 cm. Bladder within normal limits. Impression: 1: Left renal cyst measuring 1.6 cm. Reviewed, dictated and finalized at location B. [employer] Impression: 1: Left renal cyst measuring 1.6 cm.
== END ==
PROVIDERS: PCP Nurse Practitioner Family; Visit Provider Internal Medicine Nephrology
DX: N18.4 Chronic kidney disease, stage 4 (severe) (principal); N28.1 Cyst of kidney, acquired
CPT/HCPCS: 76775

== ENCOUNTER 2023-10-15 07:58 | Outpatient (CLI) | payer OTHER, SELFPAY ==
[2023-10-15 13:37] LABS: Hematocrit 34.6 % (37.0-47.0); Hemoglobin 10.8 g/dL (12.0-15.0); Mean Corpuscular HGB Conc 31.2 g/dl (32-36); Mean Corpuscular Hemoglobin 32.3 pg (26-34); Mean Corpuscular Volume 103.6 fl (80-100); Mean Platelet Volume 10.2 fl (7.4-10.4); Platelet Count Result 247 k/mm3 (150-375); Red Blood Count 3.34 M/mm3 (4.2-5.4); Red Cell Distribution Width 13.2 % (11.5-14.5); White Blood Count 4.9 K/mm3 (4.5-10.0)
[2023-10-15 13:50] LABS: Hemoglobin A1C 5.3 % (<5.7)
[2023-10-15 14:28] LABS: Parathyroid Intact 113.4 pg/mL (7.5-53.5)
[2023-10-15 14:33] LABS: Albumin Level 3.9 g/dL (3.5-5.1); Anion Gap 6 mmol/L (8-16); Blood Urea Nitrogen 63 mg/dL (7-17); Calcium 8.7 mg/dL (8.4-10.2); Carbon Dioxide 25 mmol/L (22-30); Chloride 105 mmol/L (98-107); Estimated Glomerular Filt Rate 21; Glucose 85 mg/dL (65-110); Phosphorus 4.4 mg/dL (2.5-4.5); Potassium 4.9 mmol/L (3.4-5.0); Sodium 136 mmol/L (137-145)
[2023-10-15 14:41] LABS: Creatinine Urine 69.1 mg/dL; Total Protein Urine Random 9 mg/dL; Ur Ttl Prot Creatinine Ratio 0.13 mg/mg (0-0.20)
== END 2023-10-15 07:59 | disposition home or self-care (01) ==
LOC: ANHGOSHLAB 07:59
PROVIDERS: PCP Nurse Practitioner Family; Visit Provider Internal Medicine Nephrology
DX: I12.9 Hypertensive chronic kidney disease with stage 1 through stage 4 chronic kidney disease, or unspecified chronic kidney disease (principal); N18.4 Chronic kidney disease, stage 4 (severe)
CPT/HCPCS: 36415; 80069; 82570; 83036; 83970; 84156; 85027

== ENCOUNTER 2023-10-30 08:51 | Outpatient (CLI) | payer OTHER, SELFPAY ==
--- NOTE | ~2023-10-30 | MR_ITS ---
EXAMINATION: MR MRCP wo/w con/w 3D wo ind DATE: 10/30/2023 10:34 INDICATION: Cyst of the pancreas TECHNIQUE: Magnetic resonance imaging (MRI) of the abdomen was performed without and with intravenous contrast. Sequences included coronal T2-weighted SS-FSE ARC, coronal T2-weighted FS SS-FSE, coronal T2-weighted 2D FS FIESTA, Water:Coronal LAVA-Flex, sagittal T2-weighted SS-FSE ARC, axial SSFSE ARC, axial 3D DualEcho, axial DWI B=600, axial T1-weighted LAVA, FAT:Coronal LAVA-Flex, and coronal in and opposed phase LAVA-Flex. Thick-slab T2-weighted FRFSE-XL images were obtained for magnetic resonance cholangiopancreatography (MRCP). Maximum intensity projection 3-D reconstructions of the volumetric data were created by the technologist. Postcontrast sequences included a time course of axial T1-weig hted LAVA, FAT:Coronal LAVA-Flex, coronal in and opposed phase LAVA-Flex, and Water:Coronal LAVA-Flex . COMPARISON: 03/24/2022 CONTRAST: Multihance, 14 cc FINDINGS: ABDOMEN MRI: Cysts of the liver measure up to 11 mm. There appears to be a 10 mm diverticulum of the distal esophagus. The spleen, gallbladder, and left adrenal gland are normal. The right adrenal gland is not identified, possibly due to interval adrenalectomy. Cysts of the kidneys measure up to 9 mm o n the left. There are stable cystic lesions in the pancreas which measure up to 5 mm. None demonstrat e suspicious interval change. No abnormal enhancement is present after contrast administration. There are no pathologically enlarged abdominal lymph nodes. No dilated loops of bowel are evident. ABDOMEN MRCP: No intrahepatic or extrahepatic biliary dilatation. No stones or stricture of the commo n bile duct identified. IMPRESSION: 1. Multiple stable cystic lesion of the pancreas measuring up to 5 mm with differential as previously discussed. Follow-up MRI in two years is recommended if the patient would be a surgical candidate at that time in the event of interval change. Reviewed, dictated and finalized at location L. 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 Multiple stable cystic lesion of the pancreas measuring up to 5 mm with diff erential as previously discussed. Follow-up MRI in two years is recommended if the patient would be a surgical candidate at that time in the event of interval change.
== END 2023-10-30 08:52 ==
LOC: GOSHIMG 08:52
PROVIDERS: PCP Nurse Practitioner Family; Visit Provider Internal Medicine Nephrology
DX: K86.2 Cyst of pancreas (principal)
CPT/HCPCS: 74183; 76376; A9577

== ENCOUNTER 2024-02-19 08:07 | Outpatient (CLI) | payer OTHER, SELFPAY ==
[2024-02-19 19:04] LABS: Hematocrit 36.3 % (37.0-47.0); Hemoglobin 11.3 g/dL (12.0-15.0); Mean Corpuscular HGB Conc 31.1 g/dl (32-36); Mean Corpuscular Hemoglobin 31.9 pg (26-34); Mean Corpuscular Volume 102.5 fl (80-100); Mean Platelet Volume 10.1 fl (7.4-10.4); Platelet Count Result 258 k/mm3 (150-375); Red Blood Count 3.54 M/mm3 (4.2-5.4); Red Cell Distribution Width 13.2 % (11.5-14.5); White Blood Count 4.3 K/mm3 (4.5-10.0)
[2024-02-19 19:09] LABS: Parathyroid Intact 107.2 pg/mL (7.5-53.5)
[2024-02-19 19:21] LABS: Anion Gap 7 mmol/L (4-12); Blood Urea Nitrogen 54 mg/dL (7-17); Calcium 8.6 mg/dL (8.4-10.2); Carbon Dioxide 21 mmol/L (22-30); Chloride 109 mmol/L (98-107); Estimated Glomerular Filt Rate 21; Glucose 77 mg/dL (65-110); Phosphorus 4.5 mg/dL (2.5-4.5); Potassium 4.9 mmol/L (3.4-5.0); Sodium 137 mmol/L (137-145)
[2024-02-19 19:32] LABS: Thyroid Stimulating Hormone < 0.015 uIU/mL (0.465-4.680)
[2024-02-19 19:49] LABS: Vitamin D 25 Hydroxy 42.5 ng/mL
[2024-02-19 19:50] LABS: Creatinine Urine 48.1 mg/dL; Total Protein Urine Random 10 mg/dL; Ur Ttl Prot Creatinine Ratio 0.21 mg/mg (0-0.20)
== END 2024-02-19 08:08 | disposition home or self-care (01) ==
PROVIDERS: PCP Nurse Practitioner Family; Visit Provider Internal Medicine Nephrology
DX: E87.1 Hypo-osmolality and hyponatremia (principal); I12.9 Hypertensive chronic kidney disease with stage 1 through stage 4 chronic kidney disease, or unspecified chronic kidney disease; N18.4 Chronic kidney disease, stage 4 (severe); Z78.0 Asymptomatic menopausal state; Z13.21 Encounter for screening for nutritional disorder
CPT/HCPCS: 36415; 80069; 82306; 82570; 83970; 84156; 84443; 85027

== ENCOUNTER 2024-05-19 11:18 | Outpatient (CLI) | payer OTHER, SELFPAY ==
--- NOTE | ~2024-05-19 | MM_ITS ---
EXAMINATION: MM screening dayanara BI w butch HISTORY: Screening TECHNIQUE: Craniocaudal and mediolateral oblique 3-D tomosynthesis images were obtained and synthetic 2-D images were generated. CAD analysis was submitted and interpreted. COMPARISON: Comparison to multiple prior studies sequentially, with oldest reviewed study dated 04/2020. BREAST PARENCHYMAL COMPOSITION: Dense: The breasts are heterogeneously dense, which may obscure small masses FINDINGS: There is no evidence of suspicious mass, calcification, or architectural distortion to sugg est malignancy in either breast. There has been no suspicious interval change. IMPRESSION: 1. No mammographic evidence of malignancy. 2. Recommend routine screening mammography in one year. BI-RADS Category 1: Negative Reviewed, dictated and finalized at location B.
== END 2024-05-19 11:19 | disposition home or self-care (01) ==
PROVIDERS: PCP Nurse Practitioner Family; Visit Provider Nurse Practitioner Family
DX: Z12.31 Encounter for screening mammogram for malignant neoplasm of breast (principal)
CPT/HCPCS: 77063; 77067

== ENCOUNTER 2024-06-08 15:24 | Outpatient (CLI) | payer OTHER, SELFPAY ==
[2024-06-08 19:52] LABS: Thyroid Stimulating Hormone Reflex < 0.015 uIU/mL (0.465-4.68)
[2024-06-08 20:30] LABS: Carcinoembryonic Antigen 2.9 ng/mL (0.0-3.0)
[2024-06-08 20:42] LABS: Free T4 Free Thyroxine Reflex 1.85 ng/dL (0.78-2.19)
[2024-06-08 20:45] LABS: Folic Acid 18.3 ng/mL (2.76->20)
[2024-06-08 21:27] LABS: Total Triiodothyronine (T3) 1.05 NG/ML (0.97-1.69)
[2024-06-09 12:19] LABS: CA-125 7 U/mL (<35)
== END 2024-06-08 15:25 | disposition home or self-care (01) ==
LOC: ANHGOSHLAB 15:26
PROVIDERS: PCP Nurse Practitioner Family; Visit Provider Nurse Practitioner Family
DX: D53.9 Nutritional anemia, unspecified (principal); R19.7 Diarrhea, unspecified; K86.2 Cyst of pancreas
CPT/HCPCS: 36415; 82378; 82607; 82746; 84436; 84439; 84443; 84480; 86304

== ENCOUNTER 2024-06-10 10:49 | Outpatient (CLI) | payer OTHER, SELFPAY ==
[2024-06-16 18:24] LABS: Calprotectin, Stool 14 mcg/g
== END 2024-06-10 10:50 | disposition home or self-care (01) ==
LOC: ANHLAB 10:50
PROVIDERS: PCP Nurse Practitioner Family; Visit Provider Nurse Practitioner Family
DX: R19.7 Diarrhea, unspecified (principal); K86.2 Cyst of pancreas
CPT/HCPCS: 82653; 83993

== ENCOUNTER 2024-06-21 08:06 | Outpatient (CLI) | payer OTHER, SELFPAY ==
[2024-06-21 14:19] LABS: Hematocrit 36.6 % (37.0-47.0); Hemoglobin 11.6 g/dL (12.0-15.0); Mean Corpuscular HGB Conc 31.7 g/dl (32-36); Platelet Count Result 217 k/mm3 (150-375); Red Blood Count 3.52 M/mm3 (4.2-5.4); Red Cell Distribution Width 12.9 % (11.5-14.5); White Blood Count 4.2 K/mm3 (4.5-10.0)
[2024-06-21 14:56] LABS: Creatinine Urine 40.3 mg/dL; Total Protein Urine Random 12 mg/dL
[2024-06-21 14:58] LABS: Parathyroid Intact 85.8 pg/mL (14.5-75.2)
[2024-06-21 15:20] LABS: Albumin Level 3.9 g/dL (3.5-5.1); Anion Gap 8 mmol/L (4-12); Blood Urea Nitrogen 51 mg/dL (7-17); Calcium 8.7 mg/dL (8.4-10.2); Carbon Dioxide 25 mmol/L (22-30); Chloride 103 mmol/L (98-107); Estimated Glomerular Filt Rate 21; Glucose 78 mg/dL (65-110); Phosphorus 4.3 mg/dL (2.5-4.5); Potassium 4.8 mmol/L (3.4-5.0); Sodium 136 mmol/L (137-145)
== END 2024-06-21 08:07 | disposition home or self-care (01) ==
PROVIDERS: PCP Nurse Practitioner Family; Visit Provider Internal Medicine Nephrology
DX: N18.4 Chronic kidney disease, stage 4 (severe) (principal)
CPT/HCPCS: 36415; 80069; 82570; 83970; 84156; 85027

== ENCOUNTER 2024-06-21 13:28 | Outpatient (CLI) | payer OTHER, SELFPAY ==
--- NOTE | ~2024-06-21 | DEXA_ITS ---
Bone Density Report Name: ARMEN NARVAEZ Age: 84 Sex: Female Ethnicity: White Date of : 1940 Indication: osteopenia; parental hip fracture; height loss; hysterectomy; Referring Provider: JOSE MONREAL Study: Bone densitometry was performed. Exam Date: June 21, 2024 Accession number: [id number] Bone Density: Region BMD T-score Z-score Classification AP Spine(L1-L4) 1.126 0.7 3.6 Normal Femoral Neck (Left) 0.569 -2.5 0.0 Osteoporosis Total Hip (Left) 0.643 -2.5 -0.1 Osteoporosis World Health Organization criteria for BMD impression classify patients as: Normal (T-score at or above -1.0), Osteopenia (T-score between -1.0 and -2.5), or Osteoporosis (T-score at or below -2.5). 10-year Fracture Risk: FRAX not reported because: Some T-score for Spine Total or Hip Total or Femoral Neck at or below -2.5 Previous Exams: Region Exam Age BMD T-score BMD Change BMD Change Date g/cm2 vs Baseline vs Previous AP Spine (L1-L4) 06/21/2024 84 1.126 0.7 -0.021 (-1.8%) -0.021 (-1.8%) 06/13/2022 81 1.147 0.9 Total Hip(Left) 06/21/2024 84 0.643 -2.5 -0.007 (-1.1%) -0.007 (-1.1%) 06/13/2022 81 0.650 -2.4 *Denotes significance at 95% confidence level, LSC for AP Spine = 0.022 g/cm2, LSC for Total Hip = 0.027 g/cm2 Clinical Information Provided by Patient: Parent has had a hip fracture Has used the following medications: HRT (i.e. estrogen/hormone therapy), Vitamin D, Calcium Has the following medical conditions: Hysterectomy Patient maximum height was 70.5 Menopause Age: 37 Onset of menses at age 9 Number of children 6 Impression: The patient has osteoporosis, based on the Left Total Hip T-score. The patient has risk factors, including: parental hip fracture. No significant bone loss was observed. Discussion: INCREASED RISK OF FRACTURE. BONE DENSITY IS UNDESIRABLY LOW AT ONE OR MORE SKELETAL SITES, CONSISTENT WITH POSTMENOPAUSAL OSTEOPOROSIS. This patient's lowest T-score meets the World Health Organization's (WHO) criteria for osteoporosis at one or more sites (T-score -2.5 or below). In untreated patients, the risk of osteoporotic fracture increases approximately two-fold for each 1.0 SD decrease in T-score. Low bone density is not the only risk factor for fracture; also consider factors such as patient's age, frailty or poor health, risk of falling, risk of injury, previous osteoporotic fracture, family history of osteoporosis, cigarette smoking, low body weight, etc. Not everyone with low bone mineral density has osteoporosis; osteomalacia and other metabolic bone disorders should also be considered. Patients who have osteoporosis should be evaluated for specific diseases and conditions (secondary causes) that may cause or contribute to bone loss. The [place] Association [employer] Clinical Endocrinologists (AACE) and National Osteoporosis Foundation (NOF) recommend pharmacologic intervention for all postmenopausal women whose T-score is in this range. The patient should follow a healthful lifestyle (good nutrition with adequate calcium and vitamin D, and appropriate weight-bearing exercise). Follow-Up: Consider a repeat BMD and Vertebral Fracture Assessment (VFA) exam in 2 years or sooner if medically necessary, to reassess this patient's status. Reported by: [place] on 06/21/2024 1:58:00 PM. Reviewed, dictated and finalized at location AJanuary MERAZ
== END 2024-06-21 13:29 | disposition home or self-care (01) ==
LOC: ANHIMG 13:30
PROVIDERS: PCP Nurse Practitioner Family; Visit Provider Nurse Practitioner Family
DX: Z78.0 Asymptomatic menopausal state (principal); M81.0 Age-related osteoporosis without current pathological fracture
CPT/HCPCS: 77080

== ENCOUNTER 2024-06-22 10:12 | Outpatient (CLI) | payer OTHER, SELFPAY ==
--- NOTE | ~2024-06-22 | XR_ITS ---
Lumbosacral Spine: AP, oblique, and lateral views Clinical History: Pain Findings: The normal lordotic curve is maintained. No fracture or subluxation seen. There is severe f acet arthropathy throughout the lumbar spine. There is severe degenerative spurring at L4-L5 and L5-S 1. There is mild to moderate degenerative disc change at the upper lumbar spine. The sacroiliac joint s are normally outlined. Impression: Advanced degenerative spondylosis, as above. Reviewed, dictated and finalized at location M. Impression: Advanced degenerative spondylosis, as above.
== END 2024-06-22 10:13 | disposition home or self-care (01) ==
LOC: MICIMG 10:13
PROVIDERS: PCP Nurse Practitioner Family; Visit Provider Anesthesiology Pain Medicine
DX: M47.816 Spondylosis without myelopathy or radiculopathy, lumbar region (principal)
CPT/HCPCS: 72110

== ENCOUNTER 2024-07-20 08:03 | Outpatient (CLI) | payer OTHER, SELFPAY ==
[2024-07-20 12:24] LABS: Free T4 Free Thyroxine 1.67 ng/mL (0.78-2.19)
[2024-07-20 12:50] LABS: Thyroid Stimulating Hormone < 0.015 uIU/mL (0.465-4.680)
== END 2024-07-20 08:04 | disposition home or self-care (01) ==
PROVIDERS: PCP Nurse Practitioner Family; Visit Provider Nurse Practitioner Family
DX: E03.9 Hypothyroidism, unspecified (principal)
CPT/HCPCS: 36415; 84439; 84443

== ENCOUNTER 2024-09-23 14:45 | Outpatient (CLI) | payer MEDICARE, SELFPAY ==
--- NOTE | ~2024-09-23 | XR_ITS ---
CHEST RADIOGRAPH, PA AND LATERAL CLINICAL HISTORY: R05.9 - Cough, unspecified . COMPARISON: 08/01/2021 TECHNIQUE: PA and lateral views of the chest. FINDINGS The cardiomediastinal silhouette is unremarkable. Interstitial thickening within the bilateral lung bases, findings suggesting interstitial lung diseas e. This pattern is unchanged dating back to 08/01/2021. The remainder of the lungs are clear. Fixation hardware within the right humerus. Moderate kyphosis. IMPRESSION: Interstitial thickening within the bilateral lung bases, unchanged from prior. No focal infiltrate or effusion. Reviewed, dictated and finalized at location A. GER [facility]
--- OUTSIDE RECORDS SUMMARY | 2024-09-23 15:16 | XMS_ITS | Clinical Summary ---
Author Organization [facility] Address [address] [place] [id number] Phone Care Team Providers Care Grocery Team Member Name Role Phone Hussein Gonzalez MD Primary Care Provider Allergies Active Allergy Reactions Criticality Noted Date Comments Codeine 12/24/2021 Medications Medication Sig Dispensed Refills Start Date End Date Status ALPRAZolam (XANAX) 0.25 MG tablet Take 0.25 mg by mouth 1 (one) time each day if needed for anxiety 10/30/2021 Active atorvastatin (LIPITOR) 40 MG tablet Take 40 mg by mouth every night 11/12/2021 Active clopidogrel (PLAVIX) 75 MG tablet Take 75 mg by mouth 1 (one) time each day in the morning 11/12/2021 Active estradiol (ESTRACE) 1 MG tablet Take 1 mg by mouth 1 (one) time each day 09/21/2021 Active levothyroxine (SYNTHROID) 137 MCG tablet Take 137 mcg by mouth 1 (one) time each day 12/07/2021 Active calcium carbonate (OS-MARSHAL) 1250 (500 Ca) MG tablet Take 1 tablet by mouth 1 (one) time each day Active Cholecalciferol (Vitamin D3) 25 MCG (1000 UT) capsule Take by mouth Acti ve Biotin 1000 MCG chewable tablet Chew Active Cranberry 500 MG tablet Take by mouth Active buPROPion SR (WELLBUTRIN SR) 200 MG 12 hr tablet Take 200 mg by mouth 1 (one) time each day 03/08/2022 Active alendronate (FOSAMAX) 70 MG tablet Take 70 mg by mouth 1 (one) time per week 06/14/2022 Active aspirin (ST JUD) 81 MG EC tablet Take 81 mg by mouth in the morning. 06/29/2022 Active verapamil SR (CALAN-SR) 120 MG CR tablet Take 1 tablet (120 mg total) by mouth every night 30 tablet 11 07/24/2022 Active carvedilol (COREG) 3.125 MG tablet Take 3.125 mg by mouth in the morning and 3.125 mg in the evening. Take with meals. Active Active Problems Problem Noted Date Diagnosed Date Benign essential hypertension 12/24/2021 Chronic kidney disease stage 3B 12/24/2021 Cerebrovascular accident 12/24/2021 Aortic valve stenosis 10/19/2014 Overview (07/24/2022): Aortic stenosis Dyslipidemia 09/22/2014 Overview (07/24/2022): Dyslipidemia Hypertension 09/22/2014 Overview (07/24/2022): Hypertension Immunizations Name Administration Dates Next Due Pneumococcal Conjugate 04/25/2021 Family History Medical History Relation Comments Kidney disease Neg Hx Social History Tobacco Use Types Packs/Day Years Used Date Smoking Tobacco: Never Smokeless Tobacco: Never Alcohol Use Standard Drinks/Week Comments Not Currently 0 (1 standard drink = 0.6 oz pur e alcohol) Sex and Gender Information Value Date Recorded Sex Assigned at Not on file Gender Identity Not on file Sexual Orientation Not on file Last Filed Vital Signs Vital Sign Reading Time Taken Comments Blood Pressure 140/82 07/24/2022 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 Pulse 96 07/24/2022 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 Temperature 35.9 ??C (96.6 ??F) 07/24/2022 11:[address] Respiratory Rate - - Oxygen Saturation - - Inhaled Oxygen Concentration - - Weight 72.6 kg (160 lb) 07/24/2022 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
--- OUTSIDE RECORDS SUMMARY | 2024-09-23 15:16 | XMS_ITS | Patient Health Summary ---
Author Organization [facility] Address [address] [place] [address] Care Team Providers Care Design Intern Name Role Phone Venkat Webb MD Unavailable [phone] Note from [facility],non-owned Affiliates and Associated Physician Practices is amultiple site organization consisting of ambulatory clinics and hospital sitesin [place], [place], [place] and [place]. This disclosure is being madepursuant to the Care Everywhere program and may not contain all information available regarding this patient. Last updated 18.[facility] Allergies * Oxycodone(Nausea and/or Vomiting) Medications * Be aware that medications may not be up to date on this document. Alwaysverify current medications with the patient. * spironolactone (ALDACTONE) 25 MG tablet Take 25 mg by mouth 2 times daily. * verapamil SR 24hr (VERELAN) 240 MG capsule Take 240 mg by mouth at bedtime. * Calcium Carbonate-Vit D-Min (CALCIUM 600 + MINERALS PO) Take by mouth once daily after lunch. * Vitamin D, Cholecalciferol, 400 UNITS CHEW Take by mouth once daily after lunch. * levothyroxine (SYNTHROID) 125 MCG tablet(Started 09/09/2016) daily before breakfast * Biotin (BIOTIN 5000) 5 MG Take by mouth once daily * Tetrahydrozoline HCl (VISION CLEAR OP) Take by mouth once daily * cranberry (CRANBERRY) 400 MG tablet Take 800 mg by mouth once daily * Naphazoline-Pheniramine (OPCON-A OP) 1 Drop by Ophthalmic route as needed * potassium chloride SA (MICRO-K) 10 MEQ capsule(Started 12/26/2017) Take 10 mEq by mouth once daily * PREVNAR 13 vaccine(Started 11/29/2017) * losartan (COZAAR) 50 MG tablet(Started 12/01/2017) Take 50 mg by mouth once daily Active Problems Problem Noted Date Diagnosed Date 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 05/13/2014 S/P total hip arthroplasty 12/31/2012 Avascular necrosis of femoral head 10/09/2012 Social History Tobacco Use Types Packs/Day Years Used Date Smoking Tobacco: Never Smokeless Tobacco: Never Tobacco Cessation:Counseling Given: No Alcohol Use Standard Drinks/Week Comments No 0 (1 standard drink = 0.6 oz pur e alcohol) Sex and Gender Information Value Date Recorded Sex Assigned at Not on file Gender Identity Not on file Sexual Orientation Not on file Last Filed Vital Signs Vital Sign Reading Time Taken Comments Blood Pressure 111/59 12/02/2016 7:02 AM CDT Pulse 79 12/02/2016 7:02 AM CDT Temperature 36.8 ??C (98.3 ??F) 12/02/2016 7:02 AM CD T Respiratory Rate 18 12/02/2016 7:02 AM CDT Oxygen Saturation 90% 12/02/2016 7:02 AM CDT Inhaled Oxygen Concentration - - Weight 82.1 kg (181 lb) 11/28/2016 7:53 AM CDT Height 172.7 cm (5' 8 ) 11/28/2016 7:53 AM CDT Body Mass Index 27.52 11/28/2016 7:53 AM CDT Medical Devices Implanted Type Area Chief Mechanical Officer Device Identifier Shelf Expiration Date Model / Serial / Lot Glue Floseal Matrix Hemsta 10ml Implanted:Qty: 1 on 12/08/2012 at [facility] [employer] 02/21/2014 [id number] / / [id number] Trilogy Acetabular System Liner Implanted:Qty: 1 on 12/08/2012 by Jesus Beckwith IV, MD at [facility] Right: Hip 09/23/2017 / / [id number] Shell With Cluster Holes Implanted:Qty: 1 on 12/08/2012 at [facility] Right: Hip 03/23/2021 / / [id number] Sl Revision Stem Uncemented Implanted:Qty: 1 on 12/08/2012 by Jesus Beckwith IV, MD at [facility] Right: Hip 02/21/2014 [id number] / / [id number] Ceramic Femoral Head Implanted:Qty: 1 on 12/08/2012 by Jesus Beckwith IV, MD at [facility] Right: Hip 09/23/2022 [id number] / / [id number] Brng [id number] Vngrd Arcm Kn Ant Stab Implanted:Qty: 1 on 11/28/2016 by Venkat Webb MD at [facility] Right: Knee [employer] 11/20/2021 [id number] / / [id number] Cmnt Bone Co Hv 40gm Implanted:Qty: 1 on 11/28/2016 by Venkat Webb MD at [facility] Right: Knee [employer] 04/24/2018 [id number] / / [id number] Cmpnt Ptlr 31mm 1 Pg Wire Ascnt Arcm Kn Implanted:Qty: 1 on 11/28/2016 by Venkat Webb MD at [facility] Right: Knee [employer] 11/04/2021 [id number] / / [id number] Tray Tib 79mm Kn Cocr I Beam Implanted:Qty: 1 on 11/28/2016 by Venkat Webb MD at [facility] Right: Knee [employer] 10/24/2026 [id number] / / [id number] Cmpnt Fem Kn Rt Cr Cmnt Prm Vngrd Intlk Implanted:Qty: 1 on 11/28/2016 by Venkat Webb MD at [facility] Right: Knee [employer] 10/23/2026 [id number] / / [id number] Procedures * XR HIP RIGHT 2VW OR MORE(Performed 03/02/2018) Performed for Right knee pain, unspecified chronicity * XR KNEE RIGHT 3VW(Performed 02/20/2018) Performed for Presence of right artificial knee joint * XR KNEE RIGHT 3VW(Performed 01/09/2017) Performed for Status post right knee replacement * IMAGING/RADIOLOGY/XRAY RESULTS ORDER(Performed 12/04/2016) * CARDIAC EKG ORDER(Performed 12/04/2016) * HGB HCT PANEL(Performed 11/30/2016) * HGB HCT PANEL(Performed 11/29/2016) * NEURAXIAL BLOCK(Performed 11/28/2016) * ARTHROPLASTY TOTAL KNEE(Performed 11/28/2016) * CBC W AUTO DIFFERENTIAL(Performed 11/05/2016) Performed for Preoperative examination * COMPREHENSIVE METABOLIC PANEL(Performed 11/05/2016) Performed for Preoperative examination * CULTURE MSSA/MRSA(Performed 11/05/2016) Performed for Preoperative examination * EKG 12-LEAD(Performed 11/05/2016) Performed for Preoperative examination * XR KNEE RIGHT 3VW(Performed 09/20/2016) Performed for Right knee pain, unspecified chronicity * XR SHOULDER BILAT 2VW OR MORE(Performed 11/05/2013) Performed for Shoulder pain * XR HIP RIGHT 2VW OR MORE(Performed 11/05/2013) Performed for H/O total hip arthroplasty * XR HIP RIGHT 2VW OR MORE(Performed 03/01/2013) Performed for S/P total hip arthroplasty * XR HIP RIGHT 2VW OR MORE(Performed 12/31/2012) Performed for S/P total hip arthroplasty * APHERESIS/TRANSFUSION ORDER(Performed 12/13/2012) * XR ABD OBSTRUCTION SERIES 2VW(Performed 12/12/2012) Performed for S/P hip replacement, Avascular necrosis of femoral head (HCC) * HGB HCT PANEL(Performed 12/11/2012) * BLOOD TYPE VERIFICATION(Performed 12/10/2012) * CROSSMATCH RBC LEUKOREDUCED(Performed 12/10/2012) * TYPE + SCREEN PANEL(Performed 12/10/2012) * HGB HCT PANEL(Performed 12/10/2012) * HGB HCT PANEL(Performed 12/09/2012) * ARTHROPLASTY TOTAL HIP(Performed 12/08/2012) Performed for Osteoarthrosis, Unspecified Whether Generalized Or Localized, Pelvic Region And Thigh * OT EVAL AND TREAT(Performed 12/08/2012) * XR HIP RIGHT 1VW(Performed 12/08/2012) Performed for S/P hip replacement * SPINAL BLOCK(Performed 12/08/2012) * CULTURE MSSA/MRSA(Performed 11/18/2012) Performed for Preoperative examination * COMPREHENSIVE METABOLIC PANEL(Performed 11/18/2012) Performed for Preoperative examination * CBC W AUTO DIFFERENTIAL(Performed 11/18/2012) Performed for Preoperative examination * EKG 12-LEAD(Performed 11/18/2012) Performed for Preoperative examination * XR KNEE RIGHT 3VW(Performed 10/08/2012) Performed for Pain in joint, lower leg Results * XR HIP RIGHT 2VW OR MORE (03/02/2018 1:32 PM CDT) Only the most recent of4 resultswithin the time period is included. Anatomical Region Laterality Modality Pelvis, Lower Extremity Computed Radiography Narrative 03/04/2018 10:23 AM CDT Nena Hernández, RT(R) ? 03/04/2018 10:23 AM See Chart For Xray Report Jesus Beckwith IV, MD DIAGNOSTIC IMAGING O RDERABLES * XR KNEE RIGHT 3VW (02/20/2018 10:10 AM CDT) Only the most recent of4 resultswithin the time period is included. Anatomical Region Laterality Modality Lower Extremity Computed Radiogr aphy Narrative 02/20/2018 3:03 PM CDT Carmencita Cooley ? 02/20/2018 ??3:03 PM Please see progress notes for result. Viviana Rosado PA-C DIAGNOSTIC IM AGING ORDERABLES * IMAGING/RADIOLOGY/XRAY RESULTS ORDER (12/04/2016 7:33 PM CDT) Anatomical Region Laterality Modality Other Narrative 12/04/2016 7:33 PM CDT Ordered by an unspecified provider. Scanned Document IMAGING * CARDIAC EKG ORDER (12/04/2016 7:33 PM CDT) Narrative 12/04/2016 7:33 PM CDT Ordered by an unspecified provider. Scanned Document CARDIAC SERVICES ORD ERABLES * HGB HCT PANEL (11/30/2016 2:29 AM CDT) Only the most recent of5 resultswithin the time period is included. Hemoglobin 12.8 12.0 - 15.6 gm/dL 11/30/2016 3:00 AM CDT [facility] Hematocrit 37.1 35.9 - 45.5 % 11/30/2016 3:00 AM CDT [facility] Blood BLOOD SPECIMEN / Unknown 11/30/2016 2:29 AM CDT 11/30/2016 2:54 AM CDT Venkat Webb MD LAB - HEMATOLOGY ORD ERABLES Performing Organization Address City/[facility]/ZIP Co de Phone Number [facility] [address] [place] [address] * CULTURE MSSA/MRSA (11/05/2016 10:19 AM CDT) Only the most recent of2 resultswithin the time period is included. Culture Negative for Staphylococcus aureus (MRSA/MSSA) XAVIER 11/07/2016 6:47 AM CDT [facility] Microbiology SPECIMEN FROM NASAL FOSSAE / Unknown 11/05/2016 10:19 AM CDT 11/05/2016 11:05 AM CDT Venkat Webb MD LAB - MICROBIOLOGY O RDERABLES [facility] [address] [place] [address], [facility] [phone] * (ABNORMAL) CBC W AUTO DIFFERENTIAL (11/05/2016 10:19 AM CDT) Only the most recent of2 resultswithin the time period is included. WBC 6.1 4.4 - 10.7 x10E9/L 11/05/2016 11:08 AM CDT [facility] WBC Corrected x10E9/L 11/05/2016 11:08 AM CDT [facility] RBC 4.44 3.80 - 5.20 x10E12/L 11/05/2016 11:08 AM CDT [facility] Hemoglobin 14.8 12.0 - 15.6 gm/dL 11/05/2016 11:08 AM CDT [facility] Hematocrit 43.7 35.9 - 45.5 % 11/05/2016 11:08 AM CDT [facility] MCV 98.4(H) 80.7 - 98.3 fl 11/05/2016 11:08 AM CDT [facility] MCH 33.3 26.7 - 34.0 pg 11/05/2016 11:08 AM CDT [facility] MCHC 33.9 30.8 - 35.9 gm/dL 11/05/2016 11:08 AM CDT [facility] Platelet Count 276 153 - 416 x10E9/L 11/05/2016 11:08 AM CDT [facility] RDW-CV 12.7 12.1 - 14.9 % 11/05/2016 11:08 AM CDT [facility] MPV 9.7 9.4 - 12.9 fl 11/05/2016 11:08 AM CDT [facility] Neutrophils % 67.2 44.0 - 73.0 % 11/05/2016 11:08 AM CDT [facility] Lymphocytes % 22.8 20.0 - 43.0 % 11/05/2016 11:08 AM CDT [facility] Monocytes % 7.8 5.0 - 13.0 % 11/05/2016 11:08 AM CDT [facility] Eosinophils % 1.2 0.0 - 6.0 % 11/05/2016 11:08 AM CDT [facility] Basophils % 0.7 0.0 - 2.0 % 11/05/2016 11:08 AM CDT [facility] Immature Granulocytes 0.3 0 - 1 % 11/05/2016 11:08 AM CDT [facility] Neutrophil Absolute 4.07 2.01 - 7.14 x10E9/L 11/05/2016 11:08 AM CDT [facility] Lymphocytes Absolute 1.38 1.07 - 3.94 x10E9/L 11/05/2016 11:08 AM CDT [facility] Monocytes Absolute 0.47 0.26 - 1.07 x10E9/L 11/05/2016 11:08 AM CDT [facility] Eosinophils Absolute 0.07 0 - 0.47 x10E9/L 11/05/2016 11:08 AM CDT [facility] Basophils Absolute 0.04 0 - 0.08 x10E9/L 11/05/2016 11:08 AM CDT [facility] Immature Granulocytes Absolute 0.02 0.00 - 0.06 x10E9/L 11/05/2016 11:08 AM CDT [facility] nRBC Auto 0 /100 WBC 11/05/2016 11:08 AM CDT [facility] Blood BLOOD SPECIMEN / Unknown 11/05/2016 10:19 AM CDT 11/05/2016 11:05 AM CDT Venkat Webb MD LAB - HEMATOLOGY ORD ERABLES [facility] [address] [place] [address] * (ABNORMAL) COMPREHENSIVE METABOLIC PANEL (11/05/2016 10:19 AM CDT) Only the most recent of2 resultswithin the time period is included. Glucose 86 74 - 106 mg/dL 11/05/2016 11:23 AM [facility] Sodium 139 136 - 145 mmol/L 11/05/2016 11:23 AM [facility] Potassium 4.9 3.5 - 5.1 mmol/L 11/05/2016 11:23 AM [facility] Chloride 104 98 - 107 mmol/L 11/05/2016 11:23 AM T [facility] CO2 29 22 - 31 mmol/L 11/05/2016 11:23 AM [facility] Calcium 9.0 8.5 - 10.1 mg/dL 11/05/2016 11:23 AM [facility] Anion Gap 6(L) 8 - 16 mmol/L 11/05/2016 11:23 AM [facility] BUN 28(H) 7 - 21 mg/dL 11/05/2016 11:23 AM [facility] Creatinine 1.40(H) 0.50 - 1.30 mg/dL 11/05/2016 11:23 AM [facility] Alkaline Phosphatase 83 38 - 126 U/L 11/05/2016 11:23 AM [facility] ALT 20 13 - 61 U/L 11/05/2016 11:23 AM [facility] AST 16 5 - 40 U/L 11/05/2016 11:23 AM CDT [facility] Protein Total 7.3 6.4 - 8.2 gm/dL 11/05/2016 11:23 AM CDT [facility] Albumin 3.6 3.4 - 5.0 gm/dL 11/05/2016 11:23 AM CDT [facility] Bilirubin Total 0.7 0.2 - 1.0 mg/dL 11/05/2016 11:23 AM CDT [facility] eGFR by MDRD 36 mL/min/1.7 3m2 11/05/2016 11:23 AM CDT [facility] eGFR by MDRD 44 mL/min/1.7 3m2 11/05/2016 11:23 AM CDT [facility] Blood BLOOD SPECIMEN / Unknown 11/05/2016 10:19 AM CDT 11/05/2016 11:05 AM CDT Venkat Webb MD LAB - CHEMISTRY BRAN CHERRY [facility] [address] [place] [address] * EKG 12-LEAD (11/05/2016 9:47 AM CDT) Only the most recent of2 resultswithin the time period is included. Ventricular Rate 68 BPM [facility] Atrial Rate 68 BPM [facility] P-R Interval 324 ms [facility] QRS Duration ms 86 ms [facility] Q-T Interval ms 406 ms [facility] QTC Calculation (Bezet) 431 ms [facility] Calculated P Reading 82 degrees [facility] Calculated R Reading -7 degrees [facility] Calculated T Reading 5 degrees [facility] Interpretation EKG Sinus rhythm with 1st degree A-V block Otherwise normal ECG When compared with ECG of 18-NOV-2012 12:46, No significant change was found Confirmed by BLAKE ORTIZ MD ([id number]) on 11/06/2016 11:48:25 AM [facility] 11/05/2016 9:47 AM CDT 11/06/2016 11:48 AM CDT Venkat Webb MD ECG ORDERABLES [facility] * XR SHOULDER BILAT 2VW OR MORE (11/05/2013 11:44 AM CDT) Anatomical Region Laterality Modality Upper Extremity Radiographic Prisca ging Narrative 11/05/2013 11:44 AM CDT Luzmaria Bernardo, RT(R) ? 11/05/2013 11:44 AM See progress notes for results Procedure Note Luzmaria Bernardo, RT(R) - 11/05/2013 11:44 AM CDT See progress notes for results Jesus Beckwith IV, MD DIAGNOSTIC IMAGING O RDERABLES * APHERESIS/TRANSFUSION ORDER (12/13/2012 3:33 PM CDT) Narrative 12/13/2012 3:33 PM CDT Procedure Note Document, Scanned - 12/13/2012 3:33 PM CDT Scanned Document NURSING - VITAL SIGN S AND ASSESSMENT * XR ABD OBSTR SERIES (12/12/2012 8:24 AM CDT) Anatomical Region Laterality Modality Abdomen Radiographic Prisca ging 12/12/2012 9:02 AM CDT Impressions 12/12/2012 9:46 AM CDT Stool is present in the descending colon and rectosigmoid. This is within normal limits. There are no abnormally dilated small bowel loops to suggest the presence of mechanical obstruction. The ascending colon is mildly dilated. Narrative 12/12/2012 9:46 AM CDT ABDOMEN OBSTRUCTIVE SERIES Indication: Abdominal pain. Constipation. Findings: Supine and upright views of the abdomen are submitted. ??There is no evidence of obstruction, or free intraperitoneal air. There is gas in the ascending colon but the colon is only mildly dilated. It measures up to approximately 8 cm in diameter. A small amount of stool is present at the rectosigmoid. There is a moderate amount of stool within the descending colon. This is within normal limits. There are no abnormally dilated small bowel loops to suggest the presence of a mechanical obstruction. Degenerative changes are present throughout the lumbar spine. A right hip prosthesis is present. Procedure Note Sandra Perrin MD - 12/12/2012 ABDOMEN OBSTRUCTIVE SERIES Indication: Abdominal pain. Constipation. Findings: Supine and upright views of the abdomen are submitted. There is no evidence of obstruction, or free intraperitoneal air. There is gas in the ascending colon but the colon is only mildly dilated. It measures up to approximately 8 cm in diameter. A small amount of stool is present at the rectosigmoid. There is a moderate amount of stool within the descending colon. This is within normal limits. There are no abnormally dilated small bowel loops to suggest the presence of a mechanical obstruction. Degenerative changes are present throughout the lumbar spine. A right hip prosthesis is present. IMPRESSION Stool is present in the descending colon and rectosigmoid. This is within normal limits. There are no abnormally dilated small bowel loops to suggest the presence of mechanical obstruction. The ascending colon is mildly dilated. Josee Frank MD DIAGNOSTIC IMAGING ORDERABLES * TRANSFUSE RED BLOOD CELL UNIT(S) (12/10/2012 5:56 PM CDT) Josee Frank MD NURSING - BLOOD PRO D TRANSFUSION * BLOOD TYPE VERIFICATION (12/10/2012 1:15 PM CDT) ABO A 12/10/2012 1:15 PM CDT [facility] Rh Type Positive 12/10/2012 1:15 PM CDT [facility] Miscellaneous samples (specimen) BLOOD SPECIMEN / Unknown 12/10/2012 11:35 AM CDT Josee Frank MD LAB - BLOOD BANK OR DERABLES [facility] * CROSSMATCH RBC (12/10/2012 11:07 AM CDT) Unit Donor # [id number] -F 12/10/2012 11:51 PM CDT [facility] Product Code E0424 12/10/2012 11:51 PM CDT [facility] Unit Description E0424 RBC, LR, -5 12/10/2012 11:51 PM CDT [facility] ABO Donor Type A 12/10/2012 11:51 PM CDT [facility] Rh Type Unit POS 12/10/2012 11:51 PM CDT [facility] Crossmatch Interpretation Compatible 12/10/2012 11:51 PM CDT [facility] Unit Status Transfused Unit 12/10/2012 11:51 PM CDT [facility] Miscellaneous samples (specimen) BLOOD SPECIMEN / Unknown 12/10/2012 11:07 AM CDT 12/10/2012 11:18 AM CDT Josee Frank MD LAB - BLOOD BANK OR DERABLES Performing Organization Address City/[facility] Co de Phone Number [facility] * TYPE + SCREEN PANEL (12/10/2012 11:07 AM CDT) ABO A 12/10/2012 1:20 PM CDT [facility] Rh Type Positive 12/10/2012 1:20 PM CDT [facility] Antibody Screen Negative 12/10/2012 1:20 PM CDT [facility] Miscellaneous samples (specimen) BLOOD SPECIMEN / Unknown 12/10/2012 11:07 AM CDT 12/10/2012 11:18 AM CDT Josee Frank MD LAB - BLOOD BANK OR DERABLES Performing Organization Address City/[facility] Co de Phone Number [facility] * XR HIP 1 VW RIGHT AP (IN PACU) (12/08/2012 4:39 PM CDT) Anatomical Region Laterality Modality Pelvis, Lower Extremity Radiogra phic Imaging 12/08/2012 5:10 PM CDT Narrative 12/08/2012 5:10 PM CDT RIGHT ??HIP INDICATION: Follow-up hip replacement surgery Single AP view of the hip demonstrates a total hip arthroplasty which appears to be well seated and to lie in normal position. ? Procedure Note Ted Vivar MD - 12/08/2012 RIGHT HIP INDICATION: Follow-up hip replacement surgery Single AP view of the hip demonstrates a total hip arthroplasty which appears to be well seated and to lie in normal position. Jesus Beckwith IV, MD DIAGNOSTIC IMAGING O RDERABLES * OB SPINAL BLOCK (12/08/2012 2:23 PM CDT) Narrative Shantanu Kaur APRN-CRNA - 12/08/2012 2:23 PM CDT Shantanu Kaur CRNA ? 12/08/2012 ??2:23 PM Preanesthetic Checklist Completed: patient identified, IV checked, site marked, risks and benefits discussed, surgical consent, monitors and equipment checked, pre-op evaluation, timeout performed and questions answered / anesthesia plan accepted ?? Spinal . ?? Position for procedure: ??sitting Prep: ??sterile gloves, cap, mask, sterile field established, kit and supplies assembled on sterile field and skin prepped with Betadine. ?? Needle: ??25 G Sprotte ?? Location: L3-4 Location: L3-4 Response to Block: ?? Block events: ??CSF return Anesthesia level achieved: ??T8 Anesthesia level achieved: ??T8 Patient Care after Block: Instructions to patient: ??expected sensory deficits Patient position: left lateral decubitus Additional Notes: Procedure Note Shantanu Kaur APRN-CRNA - 12/08/2012 2:23 PM CDT Preanesthetic Checklist Completed: patient identified, IV checked, site marked, risks and benefitsdiscussed, surgical consent, monitors and equipment checked, pre-opevaluation, timeout performed and questions answered / anesthesia planaccepted Spinal . Position for procedure: sitting Prep: sterile gloves, cap, mask, sterile field established, kit andsupplies assembled on sterile field and skin prepped with Betadine. Needle: 25 G Sprotte Location: L3-4 Location: L3-4 Response to Block: Block events: CSF return Anesthesia level achieved: T8 Anesthesia level achieved: T8 Patient Care after Block: Instructions to patient: expected sensory deficits Patient position: left lateral decubitus Additional Notes: Shantanu CUMMINS DC - ANESTH ESIA Care Teams Design Intern Relationship Specialty Start Date End Date Venkat Webb MD Orthopedic Surgery 10/08/12
--- OUTSIDE RECORDS SUMMARY | 2024-09-23 15:16 | XMS_ITS | Referral Summary ---
Author Organization [facility] [address] Address [address] [place] [address] Care Team Providers Care Sourcing Engineer Name Role Phone Roddy Gregorio MD Unavailable [phone] Hussein Gonzalez MD Primary Care Provider Encounters Date Type Department Care Team Description 08/20/2024 9:[address] OFFICE ASSISTANT Office Visit [facility] Cardiology at [address] [place] [address] Earl Xavier MD Nonrheumatic aortic valve stenosis (Primary Dx); Dyslipidemia; Primary hypertension; Nonrheumatic mitral valve regurgitation; Ventricular premature beats from Last 3 Months Allergies Active Allergy Reactions Criticality Noted Date Comments Oxycodone Nausea And Vomiting, Other (See comments) Low 10/28/2012 Hallucinations Medications calcium-magnesium 300-300 mg tablet take twice a day 0 0 5 Active cranberry conc-ascorbic acid (CRANBERRY PLUS VITAMIN C) 140-100 mg capsule take once a day 0 0 5 Active biotin 2,500 mcg capsule 2,500 mcg. 0 0 6 Active cholecalciferol (VITAMIN D-3) 400 unit capsule Take 1 tablet/capsule (400 Units total) by mouth daily Active estradiol (ESTRACE) 1 mg tablet Take 1 tablet (1 mg total) by mouth daily 9 Active turmeric root extract 500 mg capsule Take by mouth Active estrogens, conjugated, (PREMARIN) vaginal cream Insert into the vagina Active chlorthalidone 25 mg tablet Take 0.5 tablets (12.5 mg total) by mouth daily 3 Active Gemtesa 75 mg tablet 3 Active carvediloL (COREG) 6.25 mg tabletIndications :Primary hypertension TAKE 1 TABLET BY MOUTH TWICE A DAY WITH MEALS 180 tablet 3 4 Active levothyroxine (SYNTHROID) 100 mcg tablet Take 1 tablet (100 mcg total) by mouth data communications technician before breakfast Active aspirin 81 mg enteric coated tablet Take 1 tablet (81 mg total) by mouth daily Active ascorbic acid (VITAMIN C) 250 mg tablet Take 1 tablet (250 mg total) by mouth daily Active vit Z-T-dfyccq-zinc-l utein 226-90-0.8-5 mg capsule Take by mouth Active Active Problems Problem Noted Date Diagnosed Date Adrenal benign neoplasm, 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 2 Overview (06/17/2022): Added automatically from request for surgery [id number] CVA (cerebral vascular accident) 07/11/2021 Mitral valve insufficiency 10/19/2014 Overview (11/29/2016): Mitral regurgitation Aortic valve stenosis 10/19/2014 Overview (11/29/2016): Aortic stenosis Sensation of chest tightness 09/22/2014 Overview (11/29/2016): Chest tightness Ventricular premature beats 09/22/2014 Overview (11/29/2016): PVCs (premature ventricular contractions) Hypertension 09/22/2014 Overview (11/29/2016): Hypertension Dyslipidemia 09/22/2014 Overview (11/29/2016): Dyslipidemia Hypothyroidism 09/22/2014 Overview (11/29/2016): Hypothyroidism Overweight 09/22/2014 Overview (11/29/2016): Overweight Social History Tobacco Use Types Packs/Day Years Used Date Smoking Tobacco: Never Smokeless Tobacco: Never Tobacco Cessation:Counseling Given: Not Answered Alcohol Use Standard Drinks/Week Comments No 0 (1 standard drink = 0.6 oz pur e alcohol) AUDIT-C Answer Date Recorded Q1: How often do you have a drink containing alcohol? Never 06/20/2022 Q2: How many drinks containi ng alcohol do you have on a typical day when you are drinking? Patient does not drink Frequency of Binge Drinking Not on file 05/26 Comments No Sex and Gender Information Value Date Recorded Sex Assigned at Not on file Legal Sex Female 2:[address] OFFICE ASSISTANT Gender Identity Not on file Sexual Orientation Not on file Last Filed Vital Signs Vital Sign Reading Time Taken Comments Blood Pressure 130/82 08/20/2024 9:[address] OFFICE ASSISTANT Pulse 68 08/20/2024 9:[address] OFFICE ASSISTANT Temperature 36.5 ??C (97.7 ??F) 06/30/2022 8:[address] Respiratory Rate 16 06/30/2022 8:[address] OFFICE ASSISTANT Oxygen Saturation 99% 08/20/2024 9:[address] OFFICE ASSISTANT Inhaled Oxygen Concentration - - Weight 77.1 kg (170 lb) 08/20/2024 9:[address] OFFICE ASSISTANT Height 172.7 cm (5' 8 ) 08/20/2024 9:[address] OFFICE ASSISTANT Body Mass Index 25.85 08/20/2024 9:[address] OFFICE ASSISTANT Plan of Treatment Not on file Insurance [facility] Advance Directives For more information, please contact: [phone] * Full Code (Latest Code Status on File) Date Activated Date Inactivated Comments 06/28/2022 12:52 PM 06/30/2022 4:57 PM * Full Code Date Activated Date Inactivated Comments 04/24/2022 8:35 AM 04/25/2022 4:54 AM Care Teams Sourcing Engineer Relationship Specialty Start Date End Date Hussein Gonzalez MD [address] [place] [address] [place] [address] [place] [id number] PCP - General Family Practice 12/11/22 [place] [address] [place] [address] Consulting Physician Urology 06/28/22
--- OUTSIDE RECORDS SUMMARY | 2024-09-23 15:16 | XMS_ITS | Clinical Summary ---
Author Organization [facility] Address [address] [place] [address] Care Team Providers Care Lumber Sales Supervisor Name Role Phone Venkat Webb MD Unavailable [phone] Source Comments [facility],non-owned Affiliates and Associated Physician Practices is amultiple site organization consisting of ambulatory clinics and hospital sitesin [place], [place] and [place]. This disclosure is being madepursuant to the Care Everywhere program and may not contain all information available regarding this patient. Last updated 18.[facility] Allergies Active Allergy Reactions Criticality Noted Date Comments Oxycodone Nausea and/or Vomiting 10/28/2012 Hallucinations Medications * Be aware that medications may not be up to date on this document. Alwaysverify current medications with the patient. Medication Sig Dispensed Refills Start Date End Date Status spironolactone (ALDACTONE) 25 MG tablet Take 25 mg by mouth 2 times daily. Active verapamil SR 24hr (VERELAN) 240 MG capsule Take 240 mg by mouth at bedtime. Active Calcium Carbonate-Vit D-Min (CALCIUM 600 + MINERALS PO) Take by mouth once daily after lunch. Active Vitamin D, Cholecalciferol, 400 UNITS CHEW Take by mouth once daily after lunch. Active levothyroxine (SYNTHROID) 125 MCG tabletIndications:Righ t knee pain, unspecified chronicity,Primary osteoarthritis of right knee daily before breakfast 09/09/2016 Active Biotin (BIOTIN 5000) 5 MGIndications:Right knee pain, unspecified chronicity,Primary osteoarthritis of right knee Take by mouth once daily Active Tetrahydrozoline HCl (VISION CLEAR OP) Take by mouth once daily Active cranberry (CRANBERRY) 400 MG tablet Take 800 mg by mouth once daily Active Naphazoline-Pheniramin e (OPCON-A OP) 1 Drop by Ophthalmic route as needed Active potassium chloride SA (MICRO-K) 10 MEQ capsule Take 10 mEq by mouth once daily 12/26/2017 Active PREVNAR 13 vaccine 11/29/2017 Active losartan (COZAAR) 50 MG tablet Take 50 mg by mouth once daily 12/01/2017 Active Active Problems Problem Noted Date Diagnosed Date 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 05/13/2014 Overview (11/18/2015): 2015 IMO Updt S/P total hip arthroplasty 12/31/2012 Avascular necrosis [...] Mass Index 27.52 11/28/2016 7:53 AM CDT Plan of Treatment Health Maintenance Due Date Last Done Comments BONE DENSITY TESTING 1938 DTAP/TDAP/TD VACCINES (1 - Tdap) 1957 PNEUMOCOCCAL VACCINE 50+ (1 of 1 - PCV) 1988 ZOSTER VACCINE (1 of 2) 1988 Respiratory Syncytial Virus (RSV) Vaccine Pt: or over 60 yrs (1 - 1-dose 75+ series) 2013 COVID-19 VACCINE (2023-2 5 season) 2024 INFLUENZA VACCINE (#1) 2024 DEPRESSION SCREENING 08/25/2024 MEDICARE AWV ? CALENDAR YEAR 2024 HEPATITIS B VACCINE Aged Out No longe r eligible based on patient's age to complete this topic HIB VACCINE Aged Out No longer eligi ble based on patient's age to complete this topic HPV VACCINE Aged Out No longer eligi ble based on patient's age to complete this topic MENINGOCOCCAL (Group B) VACCINE Aged Out No longer eligible based on patient's age to complete this topic MENINGOCOCCAL VACCINE Aged Out No amber amrita eligible based on patient's age to complete this topic Medical Devices Implanted Type Area Underwriting Account Representative Device Identifier Shelf Expiration Date Model / Serial / Lot Glue Floseal Matrix Hemsta 10ml Implanted:Qty: 1 on 12/08/2012 at [facility] [employer] 02/21/2014 [id number] / / [id number] Trilogy Acetabular System Liner Implanted:Qty: 1 on 12/08/2012 by Jesus Beckwith IV, MD at [facility] Right: Hip 09/23/2017 / / [id number] Shell With Cluster Holes Implanted:Qty: 1 on 12/08/2012 at [facility] Right: Hip 03/23/2021 / / [id number] Sl Revision Stem Uncemented Implanted:Qty: 1 on 12/08/2012 by Jesus Beckwith IV, MD at [facility] Right: Hip 02/21/2014 [id number] 9 / / [id number] Ceramic Femoral Head Implanted:Qty: 1 on 12/08/2012 by Jesus Beckwith IV, MD at [facility] Right: Hip 09/23/2022 [id number] / / [id number] Vngrd Arcm Kn Ant Stab Implanted:Qty: 1 on 11/28/2016 by Venkat Webb MD at [facility] Right: Knee [employer] 11/20/2021 [id number] / / [id number] Cmnt Bone Co Hv 40gm Implanted:Qty: 1 on 11/28/2016 by Venkat Webb MD at [facility] Right: Knee [employer] 04/24/2018 [id number] / / [id number] Cmpnt Ptlr 31mm 1 Pg Wire Ascnt Arcm Kn Implanted:Qty: 1 on 11/28/2016 by Venkat Webb MD at [facility] Right: Knee [employer] 11/04/2021 [id number] / / [id number] Tray Tib 79mm Kn Cocr I Beam Implanted:Qty: 1 on 11/28/2016 by Venkat Webb MD at [facility] Right: Knee [employer] 10/24/2026 [id number] / / [id number] Cmpnt Fem Kn Rt Cr Cmnt Prm Vngrd Intlk Implanted:Qty: 1 on 11/28/2016 by Venkat Webb MD at [facility] Right: Knee [employer] 10/23/2026 [id number] / / [id number] Advance Directives Documents on File Type Date Recorded Patient Second [place] Expl anation Adv Directive/Living Will/POA 12/13/2012 2:57 PM * Full Code (Latest Code Status on File) Date Activated Date Inactivated Comments 11/28/2016 12:21 PM 12/02/2016 12:50 PM * FULL RESUSCITATION Date Activated Date Inactivated Comments 12/08/2012 6:20 PM 12/12/2012 1:07 PM Care Teams Lumber Sales Supervisor Relationship Specialty Start Date End Date Venkat Webb MD Orthopedic Surgery 10/08/12
--- OUTSIDE RECORDS SUMMARY | 2024-09-23 15:16 | XMS_ITS | Referral Summary ---
Author Organization [facility] Address [address] [place] [address] Care Team Providers Care Peanut Shaker Name Role Phone Venkat Webb MD Unavailable [phone] Source Comments [facility],non-owned Affiliates and Associated Physician Practices is amultiple site organization consisting of ambulatory clinics and hospital sitesin [place], [place], [place] and [place]. This disclosure is being madepursuant to the Care Everywhere program and may not contain all information available regarding this patient. Last updated 18.[facility] Allergies Active Allergy Reactions Criticality Noted Date [...] Mass Index 27.52 11/28/2016 7:53 AM CDT Functional Status Functional Status Response Date of Assess ment Is person deaf or have serious hearing difficult y? No 11/28/2016 Is person blind or have serious difficulty seein g? No 11/28/2016 Does person have serious dif ficulty walking/climbing stairs? No 11/28/2016 Does person have difficulty dressing/bathing? No 11/28/2016 Does person have difficulty doing errands alone? No 11/28/2016 Cognitive Status Response Date of Assessm ent Does person have difficulty concentrating/remembering/making decisions? No 11/28/2016 Plan of Treatment Not on file Medical Devices Implanted Type Area Forestry Conservation Worker Device Identifier Shelf Expiration Date Model / Serial / Lot Glue Floseal Matrix Hemsta 10ml Implanted:Qty: 1 on 12/08/2012 at [facility] [employer] 02/21/2014 [id number] / / [id number] Trilogy Acetabular System Liner Implanted:Qty: 1 on 12/08/2012 by Jesus Beckwith IV, MD at [facility] Right: Hip 09/23/2017 / / [id number] Shell With Cluster Holes Implanted:Qty: 1 on 12/08/2012 at [facility] Right: Hip 03/23/2021 / / [id number] Sl Revision Stem Uncemented Implanted:Qty: 1 on 12/08/2012 by Jesus Beckwith IV, MD at [facility] Right: Hip 02/21/2014 [id number] 9 / / [id number] Ceramic Femoral Head Implanted:Qty: 1 on 12/08/2012 by Jesus Beckwith IV, MD at [facility] Right: Hip 09/23/2022 [id number] / / [id number] Brng [id number] Vngrd Arcm Kn Ant Stab Implanted:Qty: 1 on 11/28/2016 by Venkat Webb MD at [facility] Right: Knee [employer] 11/20/2021 [id number] / / [id number] Cmnt Bone Co Hv 40gm Implanted:Qty: 1 on 11/28/2016 by Venkat Webb MD at [facility] Right: Knee [employer] Orthopedics 04/24/2018 [id number] / / [id number] Cmpnt Ptlr 31mm 1 Pg Wire Ascnt Arcm Kn Implanted:Qty: 1 on 11/28/2016 by Venkat Webb MD at [facility] Right: Knee [employer] 11/04/2021 [id number] / / [id number] Tray Tib 79mm Kn Cocr I Beam Implanted:Qty: 1 on 11/28/2016 by Venkat Webb MD at [facility] Right: Knee [employer] 10/24/2026 [id number] / / [id number] Cmpnt Fem Kn Rt Cr Cmnt Prm Vngrd Intlk Implanted:Qty: 1 on 11/28/2016 by Venkat Webb MD at [facility] Right: Knee [employer] 10/23/2026 [id number] / / [id number] Advance Directives Documents on File Type Date Recorded Patient Gear Straightener Expl anation Adv Directive/Living Will/POA 12/13/2012 2:57 PM * Full Code (Latest Code Status on File) Date Activated Date Inactivated Comments 11/28/2016 12:21 PM 12/02/2016 12:50 PM * FULL RESUSCITATION Date Activated Date Inactivated Comments 12/08/2012 6:20 PM 12/12/2012 1:07 PM Care Teams Peanut Shaker Relationship Specialty Start Date End Date Venkat Webb MD Orthopedic Surgery 10/08/12
--- OUTSIDE RECORDS SUMMARY | 2024-09-23 15:16 | XMS_ITS | Encounter Summary ---
Author Organization [facility] Address [address] [place] [address] Care Team Providers Care Deicer Repairer Electric Name Role Phone Venkat Webb MD Unavailable [phone] Encounter Details Date Type Department Care Team (Late st Contact Info) Description 12/28/2013 Therapy Visit [facility] Orthopedics [address] [address] [place] [address] [address] Social History Tobacco Use Types Packs/Day Years Used Date Smoking Tobacco: Never Smokeless Tobacco: Never Alcohol Use Standard Drinks/Week Comments No 0 (1 standard drink = 0.6 oz pur e alcohol) Sex and Gender Information Value Date Recorded Sex Assigned at Not on file Gender Identity Not on file Sexual Orientation Not on file documented as of this encounter Plan of Treatment Not on file documented as of this encounter Visit Diagnoses Not on filedocumented in this encounter Care Teams Deicer Repairer Electric Relationship Specialty Start Date End Date Venkat Webb MD Orthopedic Surgery 10/08/12 documented as of this encounter
--- OUTSIDE RECORDS SUMMARY | 2024-09-23 15:16 | XMS_ITS | Encounter Summary ---
Author Organization [facility] Address [address] [place] [address] Care Team Providers Care Vp Organizational Development Name Role Phone Venkat Webb MD Unavailable Encounter Details Date Type Department Care Team (Late st Contact Info) Description 01/21/2014 Therapy Visit [facility] Orthopedics [address] [address] [place] [address] [address] Social History Tobacco Use Types [...] on filedocumented in this encounter Care Teams Vp Organizational Development Relationship Specialty Start Date End Date Venkat Webb MD Orthopedic Surgery 10/08/12 documented as of this encounter
--- OUTSIDE RECORDS SUMMARY | 2024-09-23 15:16 | XMS_ITS | Clinical Summary ---
Author Organization [facility] [address] Address [address] [place] [address] Care Team Providers Care Flight Operation Coordinator Name Role Phone Roddy Gregorio MD Unavailable [phone] Hussein Gonzalez MD Primary Care Provider Allergies [...] 1 tablet (100 mcg total) by mouth dental ceramist assistant before breakfast Active aspirin 81 mg enteric coated tablet Take 1 tablet (81 mg total) by mouth daily Active ascorbic acid (VITAMIN C) 250 mg tablet Take 1 tablet (250 mg total) by mouth daily Active vit Z-I-gsfnsf-zinc-l utein 226-90-0.8-5 mg capsule Take by mouth Active Active Problems Problem Noted Date Diagnosed Date Adrenal benign neoplasm, 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 Overview (06/17/2022): Added automatically from request for surgery [id number] CVA (cerebral vascular accident) 07/11/2021 Mitral valve insufficiency 10/19/2014 Overview (11/29/2016): Mitral regurgitation Aortic valve stenosis 10/19/2014 Overview (11/29/2016): Aortic stenosis Sensation of chest tightness 09/22/2014 Overview (11/29/2016): Chest tightness Ventricular premature beats 09/22/2014 Overview (11/29/2016): PVCs (premature ventricular contractions) Hypertension 09/22/2014 Overview (11/29/2016): Hypertension Dyslipidemia 09/22/2014 Overview (11/29/2016): Dyslipidemia Hypothyroidism 09/22/2014 Overview (11/29/2016): Hypothyroidism Overweight 09/22/2014 Overview (11/29/2016): Overweight Encounters Date Type Department Care Team Description 08/20/2024 9:30 AM RAILROAD WHEELS AND AXLES INSPECTOR Office Visit [facility] Cardiology at [address] [place] [address] Earl Xavier MD Nonrheumatic aortic valve stenosis (Primary Dx); Dyslipidemia; Primary hypertension; Nonrheumatic mitral valve regurgitation; Ventricular premature beats from Last 3 Months Surgical History Surgery Date Site/Laterality Comments HYSTERECTOMY KNEE ARTHROPLASTY Bilateral FEMUR FRACTURE SURGERY Right HUMERUS FRACTURE SURGERY HIP ARTHROPLASTY Right Medical History Medical History Date Comments Anxiety CVA (cerebral vascular accident) (HCC) 06/2021 mild, no residual deficit HTN (hypertension) Hypothyroid Benign neoplasm of right adrenal gland Family History Medical History Relation Name Comments Diabetes Father 2 Diabetes mellit us; Heart attack Father 2 Myocardial infa rction; Cause of : Myocardial infarction Cancer Mother Cancer, unknown ; Osteoarthritis Mother Osteoarthriti s; Stroke Mother Stroke; Relation Name Status Comments Father 1 Father 2 Mother Social History Tobacco Use Types Packs/Day Years [...] on file Legal Sex Female 2:57 PM RAILROAD WHEELS AND AXLES INSPECTOR Gender Identity Not on file Sexual Orientation Not on file Obstetrics History Last Filed Vital Signs Vital Sign Reading Time Taken Comments Blood Pressure 130/82 08/20/2024 9:25 AM RAILROAD WHEELS AND AXLES INSPECTOR Pulse 68 08/20/2024 9:25 AM RAILROAD WHEELS AND AXLES INSPECTOR Temperature 36.5 ??C (97.7 ??F) 06/30/2022 8:08 AM CS T Respiratory Rate 16 06/30/2022 8:08 AM RAILROAD WHEELS AND AXLES INSPECTOR Oxygen Saturation 99% 08/20/2024 9:25 AM RAILROAD WHEELS AND AXLES INSPECTOR Inhaled Oxygen Concentration - - Weight 77.1 kg (170 lb) 08/20/2024 9:25 AM RAILROAD WHEELS AND AXLES INSPECTOR Height 172.7 cm (5' 8 ) 08/20/2024 9:25 AM RAILROAD WHEELS AND AXLES INSPECTOR Body Mass Index 25.85 08/20/2024 9:25 AM RAILROAD WHEELS AND AXLES INSPECTOR Plan of Treatment Health Maintenance Due Date Last Done Comments Depression Screening 1940 Hepatitis B Screening 1956 Zoster Vaccine (1 of 2) 1988 Well Visit 65+ 2003 DTaP/Tdap/Td Vaccine (1 - Tdap) 03/02/2013 3 Fall Risk Assessment 06/30/2023 06/30/2022 Influenza Vaccine (#1) 2024 Pneumococcal vaccine 65+ Completed 021, 11/29/2017, 06/16/2003 Insurance [facility] Advance Directives For more information, please contact: [phone] * Full Code (Latest Code Status on File) Date Activated Date Inactivated Comments 06/28/2022 12:52 PM 06/30/2022 4:57 PM * Full Code Date Activated Date Inactivated Comments 04/24/2022 8:35 AM 04/25/2022 4:54 AM Care Teams Flight Operation Coordinator Relationship Specialty Start Date End Date Hussein Gonzalez MD [address] [facility] [address] [place], [place] [id number] PCP - General Family Practice 12/11/22 [place] [address] [place] [address] [place] [address] Consulting Physician Urology 06/28/22
--- OUTSIDE RECORDS SUMMARY | 2024-09-23 15:16 | XMS_ITS | Clinical Summary ---
Author Organization [facility] Address [address] [place] [address]. [place], [place] [address] [place] [address] Care Team Providers Care Rn Coronary Care Unit Name Role Phone Unavailable Primary Care Provider Unavailabl e Social History Tobacco Use Types Packs/Day Years Used Date Smoking Tobacco: Never Assessed Comments Unknown Sex and Gender Information Value Date Recorded Sex Assigned at Not on file Legal Sex Female 7:55 PM CDT Gender Identity Not on file Sexual Orientation Not on file Plan of Treatment Health Maintenance Due Date Last Done Comments DTaP, Tdap and Td Vaccines ( 1 - Tdap) 1957 Zoster Vaccines (1 of 2) 1988 Pneumococcal Vaccine: 65+ Ye ars (1 of 1 - PCV) 2003 RSV Immunization or 60+ Years (1 - 1-dose 75+ series) 2013 COVID-19 Vaccine ( - 2023-2 5 season) 2024 Influenza Adult (#1) 2024 Meningococcal B Vaccine Aged Out No l onger eligible based on patient's age to complete this topic Meningococcal Vaccine Aged Out No amber amrita eligible based on patient's age to complete this topic RSV Immunizations Under 20 Months Aged Out No longer eligible based on patient's age to complete this topic
[2024-09-23 15:26] LABS: Strep Group A RT-PCR NOT DETECTED (Negative)
[2024-09-23 15:38] LABS: Influenza A QL RT-PCR Positive (Negative); Influenza B QL RT-PCR Negative (Negative); RSV RNA, RT-PCR Negative (Negative); SARS-CoV-2 RNA PCR Negative (Negative)
== END 2024-09-23 14:46 | disposition home or self-care (01) ==
PROVIDERS: PCP Nurse Practitioner Family; Visit Provider Family Medicine
DX: J06.9 Acute upper respiratory infection, unspecified (principal); R05.9 Cough, unspecified
CPT/HCPCS: 71046; 87637; 87651

== ENCOUNTER 2024-10-19 08:01 | Outpatient (CLI) | payer MEDICARE, SELFPAY ==
--- OUTSIDE RECORDS SUMMARY | 2024-10-19 08:14 | XMS_ITS | Encounter Summary ---
Author Organization [facility] Address [address] [facility] [address] Care Team Providers Care Ext Js Developer Name Role Phone Venkat Webb MD Unavailable [phone] Encounter Details Date Type Department Care Team (Late st Contact Info) Description 12/28/2013 Therapy Visit [facility] Orthopedics [address] [address] [place] [address] [address] Social History Tobacco Use Types [...] on filedocumented in this encounter Care Teams Ext Js Developer Relationship Specialty Start Date End Date Venkat Webb MD Orthopedic Surgery 10/08/12 documented as of this encounter
--- OUTSIDE RECORDS SUMMARY | 2024-10-19 08:14 | XMS_ITS | Patient Health Summary ---
Author Organization [facility] Address [address] [place] [address] Care Team Providers Care Drug Safety Assistant Name Role Phone Venkat Webb MD Unavailable [phone] Note from [facility],non-owned Affiliates and Associated Physician Practices is amultiple site organization consisting of ambulatory clinics and hospital sitesin [place], [place], [place]. This disclosure is being madepursuant to the Care Everywhere program and may not contain all information available regarding this patient. Last updated 18.[facility] Allergies * Oxycodone(Nausea and/or Vomiting) Medications [...] 79 12/02/2016 7:02 AM CDT Temperature 36.8 C (98.3 F) 12/02/2016 7:02 AM CDT Respiratory Rate 18 12/02/2016 7:02 AM CDT Oxygen Saturation 90% 12/02/2016 7:02 AM CDT Inhaled Oxygen Concentration - - Weight 82.1 kg (181 lb) 11/28/2016 7:53 AM CDT Height 172.7 cm (5' 8 ) 11/28/2016 7:53 AM CDT Body Mass Index 27.52 11/28/2016 7:53 AM CDT Medical Devices Implanted Type Area Banking Services Advisor Device Identifier Shelf Expiration Date Model / Serial / Lot Glue Floseal Matrix Hemsta 10ml Implanted:Qty: 1 on 12/08/2012 at [facility] [employer] 02/21/2014 [id number] / / [id number] Trilogy Acetabular System Liner Implanted:Qty: 1 on 12/08/2012 by Jesus Beckwith IV, MD at [facility] Right: Hip 09/23/2017 / / [id number] Shell With Cluster Holes Implanted:Qty: 1 on 12/08/2012 at [facility] Right: Hip 03/23/2021 / / [id number] Sl Revision Stem Uncemented Implanted:Qty: 1 on 12/08/2012 by Jesus Beckwith IV, MD at [facility] Right: Hip 02/21/2014 [id number] / / [id number] Ceramic Femoral Head Implanted:Qty: 1 on 12/08/2012 by Jesus Beckwith IV, MD at [facility] Right: Hip 09/23/2022 [id number] / / [id number] Vngrd Arcm Kn Ant Stab Implanted:Qty: 1 on 11/28/2016 by Venkat Webb MD at [facility] Right: Knee [employer] 11/20/2021 [id number] / / [id number] Cmnt Bone Co Hv 40gm Implanted:Qty: 1 on 11/28/2016 by Venkat Webb MD at [facility] Right: Knee [employer] 04/24/2018 [id number] / / [id number] Cmpnt Ptlr 31mm 1 Pg Wire Ascnt Arcm Kn Implanted:Qty: 1 on 11/28/2016 by Venkat Webb MD at [facility] Right: Knee [employer] 11/04/2021 [id number] / / [id number] Tray Tib 79mm Kn Cocr I Beam Implanted:Qty: 1 on 11/28/2016 by Venkat Webb MD at [facility] Right: Knee [employer] 10/24/2026 [id number] / / [id number] Cmpnt Fem Kn Rt Cr Cmnt Prm Vngrd Intlk Implanted:Qty: 1 on 11/28/2016 by Venkat Webb MD at [facility] Right: Knee [employer] 10/23/2026 [id number] / / [id number] Procedures * XR HIP RIGHT 2VW OR [...] 03/04/2018 10:23 AM CDT Nena Hernández, RT(R) 03/04/2018 10:23 AM See Chart For Xray Report Jesus Beckwith IV, MD DIAGNOSTIC IMAGING O RDERABLES * XR KNEE RIGHT 3VW (02/20/2018 10:10 AM CDT) Only the most recent of4 resultswithin the time period is included. Anatomical Region Laterality Modality Lower Extremity Computed Radiogr aphy Narrative 02/20/2018 3:03 PM CDT Carmencita Cooley 02/20/2018 3:03 PM Please see progress notes for result. [...] - 15.6 gm/dL 11/30/2016 3:00 AM CDT [facility] Hematocrit 37.1 35.9 - 45.5 % 11/30/2016 3:00 AM CDT [facility] Blood BLOOD SPECIMEN / Unknown 11/30/2016 2:29 AM CDT 11/30/2016 2:54 AM CDT Venkat Webb MD LAB - HEMATOLOGY ORD ERABLES Performing Organization Address City/[facility]/ZIP Co de Phone Number [facility] [address] [place], [place] [id number] * CULTURE MSSA/MRSA (11/05/2016 10:19 AM CDT) Only the most recent of2 resultswithin the time period is included. Pathologist [facility] Culture Negative for Staphylococcus aureus (MRSA/MSSA) XAVIER 11/07/2016 6:47 AM CDT [facility] Microbiology SPECIMEN FROM NASAL FOSSAE / Unknown 11/05/2016 10:19 AM CDT 11/05/2016 11:05 AM CDT Venkat Webb MD LAB - MICROBIOLOGY O RDERABLES Performing Organization Address City/[facility]/ZIP Co de Phone Number [facility] [address] [place] [address], [facility] [phone] * (ABNORMAL) CBC W AUTO DIFFERENTIAL (11/05/2016 10:19 AM CDT) Only the most recent of2 resultswithin the time period is included. WBC 6.1 4.4 - 10.7 x10E9/L 11/05/2016 11:08 AM CDT [facility] WBC Corrected x10E9/L 11/05/2016 11:08 AM CDT [facility] RBC 4.44 3.80 - 5.20 x10E12/L 11/05/2016 11:08 AM CDT [facility] Hemoglobin 14.8 12.0 - 15.6 gm/dL 11/05/2016 11:08 AM CDT [facility] Hematocrit 43.7 35.9 - 45.5 % [...] - 12.9 fl 11/05/2016 11:08 AM CDT [facility] Neutrophils % 67.2 44.0 - 73.0 % 11/05/2016 11:08 AM CDT [facility] Lymphocytes % 22.8 20.0 - 43.0 % 11/05/2016 11:08 AM CDT [facility] Monocytes % 7.8 5.0 - 13.0 % 11/05/2016 11:08 AM CDT [facility] Eosinophils % 1.2 0.0 - 6.0 [...] - 0.08 x10E9/L 11/05/2016 11:08 AM CDT [facility] Immature Granulocytes Absolute 0.02 0.00 - 0.06 x10E9/L 11/05/2016 11:08 AM CDT [facility] nRBC Auto 0 /100 WBC 11/05/2016 11:08 AM T [facility] Blood BLOOD SPECIMEN / Unknown 11/05/2016 10:19 AM CDT 11/05/2016 11:05 AM CDT Venkat Webb MD LAB - HEMATOLOGY ORD ERABLES [facility] [address] [place] [address] * (ABNORMAL) COMPREHENSIVE METABOLIC PANEL (11/05/2016 10:19 AM CDT) Only the most recent of2 resultswithin the time period is included. Glucose 86 74 - 106 mg/dL 11/05/2016 11:23 AM [facility] Sodium 139 136 - 145 mmol/L 11/05/2016 11:23 AM [facility] Potassium 4.9 3.5 - 5.1 mmol/L 11/05/2016 11:23 AM [facility] Chloride 104 98 - 107 mmol/L 11/05/2016 11:23 AM T [facility] CO2 29 22 - 31 mmol/L 11/05/2016 11:23 AM [facility] Calcium 9.0 8.5 - 10.1 mg/dL 11/05/2016 11:23 AM [facility] Anion Gap 6(L) 8 - 16 mmol/L 11/05/2016 11:23 AM [facility] BUN 28(H) 7 - 21 mg/dL 11/05/2016 11:23 AM [facility] Creatinine 1.40(H) 0.50 - 1.30 mg/dL 11/05/2016 11:23 AM [facility] Alkaline Phosphatase 83 38 - 126 U/L 11/05/2016 11:23 AM [facility] ALT 20 13 - 61 U/L 11/05/2016 11:23 AM [facility] AST 16 5 - 40 U/L 11/05/2016 11:23 AM [facility] Protein Total 7.3 6.4 - 8.2 gm/dL 11/05/2016 11:23 AM CDT [facility] Albumin 3.6 3.4 - 5.0 gm/dL 11/05/2016 11:23 AM CDT [facility] Bilirubin Total 0.7 0.2 - 1.0 mg/dL 11/05/2016 11:23 AM CDT [facility] eGFR by MDRD 36 mL/min/1.7 3m2 11/05/2016 11:23 AM CDT [facility] eGFR by MDRD 44 mL/min/1.7 3m2 11/05/2016 11:23 AM CDT [facility] Blood BLOOD SPECIMEN / Unknown 11/05/2016 10:19 AM CDT 11/05/2016 11:05 AM CDT Venkat Webb MD LAB - CHEMISTRY BRAN CHERRY [facility] [address] [place] [address] * EKG 12-LEAD (11/05/2016 9:47 AM CDT) Only the most recent of2 resultswithin the time period is included. Ventricular Rate 68 BPM [facility] Atrial Rate 68 BPM [facility] P-R Interval 324 ms [facility] QRS Duration ms 86 ms [facility] Q-T Interval ms 406 ms [facility] QTC Calculation (Bezet) 431 ms [facility] Calculated P Berne 82 degrees [facility] Calculated R Berne -7 degrees [facility] Calculated T Berne 5 degrees [facility] Interpretation EKG Sinus rhythm with 1st degree A-V block Otherwise normal ECG When compared with ECG of 18-NOV-2012 12:46, No significant change was found Confirmed by BLAKE ORTIZ MD ([id number]) on 11/06/2016 11:48:25 AM [facility] 11/05/2016 9:47 AM CDT 11/06/2016 11:48 AM CDT Venkat Webb MD ECG ORDERABLES [facility] * XR SHOULDER BILAT 2VW OR MORE (11/05/2013 11:44 AM CDT) Anatomical Region Laterality Modality Upper Extremity Radiographic Prisca ging Narrative 11/05/2013 11:44 AM CDT Luzmaria Bernardo, RT(R) 11/05/2013 11:44 AM See progress notes for [...] CDT) ABO A 12/10/2012 1:15 PM CDT [facility] Rh Type Positive 12/10/2012 1:15 PM CDT [facility] Miscellaneous samples (specimen) BLOOD SPECIMEN / Unknown 12/10/2012 11:35 AM CDT Josee Frank MD LAB - BLOOD BANK OR DERABLES [facility] * CROSSMATCH RBC (12/10/2012 11:07 AM CDT) Unit Donor # [id number] -F 12/10/2012 11:51 PM CDT [facility] Product Code E0424 12/10/2012 11:51 PM CDT [facility] Unit Description E0424 RBC, LR, -5 12/10/2012 11:51 PM CDT [facility] ABO Donor Type A 12/10/2012 11:51 PM CDT [facility] Rh Type Unit POS 12/10/2012 11:51 PM CDT [facility] Crossmatch Interpretation Compatible 12/10/2012 11:51 PM CDT [facility] Unit Status Transfused Unit 12/10/2012 11:51 PM CDT [facility] Miscellaneous samples (specimen) BLOOD SPECIMEN / Unknown 12/10/2012 11:07 AM CDT 12/10/2012 11:18 AM CDT Josee Frank MD LAB - BLOOD BANK OR DERABLES Performing Organization Address [facility] Co de Phone Number [facility] * TYPE + SCREEN PANEL (12/10/2012 11:07 AM CDT) ABO A 12/10/2012 1:20 PM CDT [facility] Rh Type Positive 12/10/2012 1:20 PM CDT [facility] Antibody Screen Negative 12/10/2012 1:20 PM CDT [facility] Miscellaneous samples (specimen) BLOOD SPECIMEN / Unknown 12/10/2012 11:07 AM CDT 12/10/2012 11:18 AM CDT Josee Frank MD LAB - BLOOD BANK OR DERABLES Performing Organization Address [facility] de Phone Number [facility] * XR HIP 1 VW RIGHT AP (IN PACU) (12/08/2012 4:39 PM CDT) Anatomical Region Laterality Modality Pelvis, Lower Extremity Radiogra phic Imaging 12/08/2012 5:10 PM CDT Narrative 12/08/2012 5:10 PM CDT RIGHT HIP INDICATION: Follow-up hip replacement surgery Single AP view of the hip demonstrates a total hip arthroplasty which appears to be well seated and to lie in normal position. Procedure Note Ted Vivar MD - 12/08/2012 RIGHT HIP INDICATION: Follow-up hip replacement surgery Single AP view of the hip demonstrates a total hip arthroplasty which appears to be well seated and to lie in normal position. Jesus Beckwith IV, MD DIAGNOSTIC IMAGING O RDERABLES * OB SPINAL BLOCK (12/08/2012 2:23 PM CDT) Narrative Vincent JamietruptiPLACIDO Gray - 12/08/2012 2:23 PM CDT Shantanu Kaur CRNA 12/08/2012 2:23 PM Preanesthetic Checklist Completed: patient identified, IV checked, site marked, risks and benefits discussed, surgical consent, monitors and equipment checked, pre-op evaluation, timeout performed and questions answered / anesthesia plan accepted Spinal . Position for procedure: sitting Prep: [...] left lateral decubitus Additional Notes: Procedure Note Vincent, Shantanu VincentPLACIDO - 12/08/2012 2:23 PM CDT Preanesthetic Checklist [...] Patient position: left lateral decubitus Additional Notes: Jamiejennie Vincent [place] [facility] - [facility] Care Teams Drug Safety Assistant Relationship Specialty Start Date End Date Venkat Webb MD Orthopedic Surgery 10/08/12
--- OUTSIDE RECORDS SUMMARY | 2024-10-19 08:14 | XMS_ITS | Referral Summary ---
Author Organization [facility] [employer] Address [address] [place] [address] Care Team Providers Care Butting Saw Operator Name Role Phone Venkat Webb MD Unavailable Source Comments [facility] [employer],non-owned Affiliates and Associated Physician Practices is amultiple site organization consisting of ambulatory clinics and hospital sitesin [place], [place], [place] and [place]. This disclosure is being madepursuant to the Care Everywhere program and may not contain all information available regarding this patient. Last updated 18.[facility] [employer] Allergies Active Allergy Reactions Criticality Noted Date [...] on file Medical Devices Implanted Type Area Education Technician Device Identifier Shelf Expiration Date Model / Serial / Lot Glue Floseal Matrix Hemsta 10ml Implanted:Qty: 1 on 12/08/2012 at [facility] [employer] 02/21/2014 [id number] / / [id number] Trilogy Acetabular System Liner Implanted:Qty: 1 on 12/08/2012 by Jesus Beckwith IV, MD at [facility] Right: Hip 09/23/2017 / / [id number] Shell With Cluster Holes Implanted:Qty: 1 on 12/08/2012 at [facility] Right: Hip 03/23/2021 / / [id number] Sl Revision Stem Uncemented Implanted:Qty: 1 on 12/08/2012 by Jesus Beckwith IV, MD at [facility] Right: Hip 02/21/2014 01.16409.21 9 / / [id number] Ceramic Femoral Head Implanted:Qty: 1 on 12/08/2012 by Jesus Beckwith IV, MD at [facility] Right: Hip 09/23/2022 [id number] -01 / / [id number] [id number] Vngrd Arcm Kn Ant Stab Implanted:Qty: 1 on 11/28/2016 by Venkat Webb MD at [facility] Right: Knee [employer] 11/20/2021 [id number] / / [id number] Cmnt Bone Co Hv 40gm Implanted:Qty: 1 on 11/28/2016 by Venkat Webb MD at [facility] Right: Knee [employer] 04/24/2018 [id number] / / [id number] Cmpnt Ptlr 31mm 1 Pg Wire Ascnt Arcm Kn Implanted:Qty: 1 on 11/28/2016 by Venkat Webb MD at [facility] Right: [employer]nee [employer] 11/04/2021 [id number] / / [id number] Tray Tib 79mm Kn Cocr I Beam Implanted:Qty: 1 on 11/28/2016 by Venkat Webb MD at [facility] Right: [employer]nee [employer] 10/24/2026 [id number] / / [id number] Cmpnt Fem Kn Rt Cr Cmnt Prm Vngrd Intlk Implanted:Qty: 1 on 11/28/2016 by Venkat Webb MD at [facility] Right: [employer]nee [employer] 10/23/2026 [id number] / / [id number] Advance Directives Documents on File Type Date Recorded Patient Flask Cleaner Expl anation Adv Directive/Living Will/POA 12/13/2012 2:57 PM * Full Code (Latest Code Status on File) Date Activated Date Inactivated Comments 11/28/2016 12:21 PM 12/02/2016 12:50 PM * FULL RESUSCITATION Date Activated Date Inactivated Comments 12/08/2012 6:20 PM 12/12/2012 1:07 PM Care Teams Butting Saw Operator Relationship Specialty Start Date End Date Venkat Webb MD Orthopedic Surgery 10/08/12
--- OUTSIDE RECORDS SUMMARY | 2024-10-19 08:14 | XMS_ITS | Referral Summary ---
Author Organization [facility] [address] Address [address] [place] [address] Care Team Providers Care Focusing Machine Operator Name Role Phone Roddy Gregorio MD Unavailable [phone] Hussein Gonzalez MD Primary Care Provider Encounters Date Type Department Care Team Description 08/20/2024 9:30 AM UNDRAPED ARTIST MODEL Office Visit [facility] Cardiology at [address] [place] [address] Earl Xavier MD Nonrheumatic aortic [...] 1 tablet (100 mcg total) by mouth lower in supervisor before breakfast Active aspirin 81 mg enteric coated tablet Take 1 tablet (81 mg total) by mouth daily Active ascorbic acid (VITAMIN C) 250 mg tablet Take 1 tablet (250 mg total) by mouth daily Active vit G-S-vwteot-zinc-l utein 226-90-0.8-5 mg capsule Take by mouth Active Active Problems Problem Noted Date Diagnosed Date Adrenal benign neoplasm, 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 2 Overview (06/17/2022): Added automatically from request for surgery [id number] CVA (cerebral vascular accident) 07/11/2021 Mitral valve [...] on file Legal Sex Female 2:57 PM UNDRAPED ARTIST MODEL Gender Identity Not on file Sexual Orientation Not on file Last Filed Vital Signs Vital Sign Reading Time Taken Comments Blood Pressure 130/82 08/20/2024 9:25 AM UNDRAPED ARTIST MODEL Pulse 68 08/20/2024 9:25 AM UNDRAPED ARTIST MODEL Temperature 36.5 C (97.7 F) 06/30/2022 8:08 AM UNDRAPED ARTIST MODEL Respiratory Rate 16 06/30/2022 8:08 AM UNDRAPED ARTIST MODEL Oxygen Saturation 99% 08/20/2024 9:25 AM UNDRAPED ARTIST MODEL Inhaled Oxygen Concentration - - Weight 77.1 kg (170 lb) 08/20/2024 9:25 AM UNDRAPED ARTIST MODEL Height 172.7 cm (5' 8 ) 08/20/2024 9:25 AM UNDRAPED ARTIST MODEL Body Mass Index 25.85 08/20/2024 9:25 AM UNDRAPED ARTIST MODEL Plan of Treatment Not on file Insurance [facility] Advance Directives For more information, please contact: [phone] * Full Code (Latest Code Status on File) Date Activated Date Inactivated Comments 06/28/2022 12:52 PM 06/30/2022 4:57 PM * Full Code Date Activated Date Inactivated Comments 04/24/2022 8:35 AM 04/25/2022 4:54 AM Care Teams Focusing Machine Operator Relationship Specialty Start Date End Date Hussein Gonzalez MD [address] [facility] [place] [address] [place] [id number] PCP - General Family Practice 12/11/22 [place] [address] [place] [address] Consulting Physician Urology 06/28/22
--- OUTSIDE RECORDS SUMMARY | 2024-10-19 08:14 | XMS_ITS | Clinical Summary ---
Author Organization [facility] Address [address] [place] [address] Care Team Providers Care Aerospace Quality Engineer Name Role Phone Unavailable Primary Care Provider [...]
--- OUTSIDE RECORDS SUMMARY | 2024-10-19 08:14 | XMS_ITS | Clinical Summary ---
Author Organization [facility] [address] Address [address] [place] [address] Care Team Providers Care Equine Science Instructor Name Role Phone Roddy Gregorio MD Unavailable [phone] Hussein Gonzalez MD Primary Care Provider [...] 1 tablet (100 mcg total) by mouth hatchery man before breakfast Active aspirin 81 mg enteric coated tablet Take 1 tablet (81 mg total) by mouth daily Active ascorbic acid (VITAMIN C) 250 mg tablet Take 1 tablet (250 mg total) by mouth daily Active vit D-U-rdrlie-zinc-l utein 226-90-0.8-5 mg capsule Take by mouth Active Active Problems Problem Noted Date Diagnosed Date Adrenal benign neoplasm, 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 Cardiology at [address] [place] [address] Earl Xavier MD Nonrheumatic aortic [...] on file Legal Sex Female 2:57 PM CHARGER OPERATOR HELPER Gender Identity Not on file Sexual Orientation Not on file Obstetrics History Last Filed Vital Signs Vital Sign Reading Time Taken Comments Blood Pressure 130/82 08/20/2024 9:25 AM CHARGER OPERATOR HELPER Pulse 68 08/20/2024 9:25 AM CHARGER OPERATOR HELPER Temperature 36.5 C (97.7 F) 06/30/2022 8:08 AM CHARGER OPERATOR HELPER Respiratory Rate 16 06/30/2022 8:08 AM CHARGER OPERATOR HELPER Oxygen Saturation 99% 08/20/2024 9:25 AM CHARGER OPERATOR HELPER Inhaled Oxygen Concentration - - Weight 77.1 kg (170 lb) 08/20/2024 9:25 AM CHARGER OPERATOR HELPER Height 172.7 cm (5' 8 ) 08/20/2024 9:25 AM CHARGER OPERATOR HELPER Body Mass Index 25.85 08/20/2024 9:25 AM CHARGER OPERATOR HELPER Plan of Treatment Health Maintenance Due Date Last Done Comments Depression Screening 1938 Hepatitis B Screening 1956 Zoster Vaccine (1 of 2) 1988 Well Visit 65+ 2003 DTaP/Tdap/Td Vaccine (1 - Tdap) 03/02/2013 3 Fall Risk Assessment 06/30/2023 06/30/2022 Influenza Vaccine (#1) 2024 Pneumococcal vaccine 65+ Completed 021, 11/29/2017, 06/16/2003 Insurance [facility] Advance Directives For more information, please contact: [phone] * Full Code (Latest Code Status on File) Date Activated Date Inactivated Comments 06/28/2022 12:52 PM 06/30/2022 4:57 PM * Full Code Date Activated Date Inactivated Comments 04/24/2022 8:35 AM 04/25/2022 4:54 AM Care Teams Equine Science Instructor Relationship Specialty Start Date End Date Hussein Gonzalez MD [address] [facility] [address] [place] [address] PCP - General Family Practice 12/11/22 [place] [address] [place] [id number] Consulting Physician Urology 06/28/22
--- OUTSIDE RECORDS SUMMARY | 2024-10-19 08:14 | XMS_ITS | Clinical Summary ---
Author Organization [facility] [employer] Address [address] [place] [address] Care Team Providers Care House Painting Instructor Name Role Phone Venkat Webb MD Unavailable [phone] Source Comments [facility] [employer]non-owned Affiliates and Associated Physician Practices is amultiple site organization consisting of ambulatory clinics and hospital sitesin [place], [place], [place]. This disclosure is being madepursuant to the Care Everywhere program and may not contain all information available regarding this patient. Last updated 18.[facility] [employer] Allergies Active Allergy Reactions Criticality Noted Date [...] (#1) 2024 DEPRESSION SCREENING 08/25/2024 MEDICARE AWV CALENDAR YEAR 2024 HEPATITIS B VACCINE Aged [...] this topic Medical Devices Implanted Type Area Network Announcer Device Identifier Shelf Expiration Date Model / Serial / Lot Glue Floseal Matrix Hemsta 10ml Implanted:Qty: 1 on 12/08/2012 at [facility] Alere 02/21/2014 [id number] / / [id number] Trilogy Acetabular System Liner Implanted:Qty: 1 on 12/08/2012 by Jesus Beckwith IV, MD at [facility] Right: Hip 09/23/2017 / / [id number] Shell With Cluster Holes Implanted:Qty: 1 on 12/08/2012 at [facility] Right: Hip 03/23/2021 / / [id number] Sl Revision Stem Uncemented Implanted:Qty: 1 on 12/08/2012 by Jesus Beckwith IV, MD at [facility] Right: Hip 02/21/2014 [id number] / / [id number] Ceramic Femoral Head Implanted:Qty: 1 on 12/08/2012 by Jesus Beckwith IV, MD at [facility] Right: Hip 09/23/2022 [id number] / / [id number] Vngrd Arcm Kn Ant Stab Implanted:Qty: 1 on 11/28/2016 by Venkat Webb MD at [facility] Right: Knee [employer] 11/20/2021 [id number] / / [id number] Cmnt Bone Co Hv 40gm Implanted:Qty: 1 on 11/28/2016 by Venkat Webb MD at [facility] Right: Knee [employer] 04/24/2018 [id number] / / [id number] Cmpnt Ptlr 31mm 1 Pg Wire Ascnt Arcm Kn Implanted:Qty: 1 on 11/28/2016 by Venkat Webb MD at [facility] Right: Knee [employer] 11/04/2021 [id number] / / [id number] Tray Tib 79mm Kn Cocr I Beam Implanted:Qty: 1 on 11/28/2016 by Venkat Webb MD at [facility] Right: Knee [employer] 10/24/2026 [id number] / / [id number] Cmpnt Fem Kn Rt Cr Cmnt Prm Vngrd Intlk Implanted:Qty: 1 on 11/28/2016 by Venkat Webb MD at [facility] Right: Knee [employer] 10/23/2026 [id number] / / [id number] Advance Directives Documents on File Type Date Recorded Patient Orchard Pruner Expl anation Adv Directive/Living Will/POA 12/13/2012 2:57 PM * Full Code (Latest Code Status on File) Date Activated Date Inactivated Comments 11/28/2016 12:21 PM 12/02/2016 12:50 PM * FULL RESUSCITATION Date Activated Date Inactivated Comments 12/08/2012 6:20 PM 12/12/2012 1:07 PM Care Teams House Painting Instructor Relationship Specialty Start Date End Date Venkat Webb MD Orthopedic Surgery 10/08/12
--- OUTSIDE RECORDS SUMMARY | 2024-10-19 08:14 | XMS_ITS | Continuity of Care Document ---
Author Organization [facility] Address [address] [place] [address] Phone Care Team Providers Care Chemistry Physics Teacher Name Role Phone Marisol Mills Unavailable Unavailable Procedures Procedure Date Office/outpatient Visit, Est Eye Exam & Treatment Refraction Eye Exam & Treatment Refraction Eye Exam & Treatment Advance Directives Directive Yes / No Effective Date File Name No Information Encounters Encounter Description Practice Location Reason(s) For Visit Diagnoses Date Provider Providers Copied on Encounter Office/outpat ient Visit, Est [facility], [address] [place] [address] [address], [place], [place], [id number], tel:[phone] [facility] No Information 0 Lina Adenn. [address], [place], [place], [facility], . tel:[phone] [facility], [address] [place] [address] [address], [place], [place], [address], tel:[phone] [facility] No Information 201 0 Lina Adenn. [address] , [address], [place], [place], [facility], [place]. tel:[phone] [facility], [address] [place] [address] [address], [place], [place], [id number], tel:[phone] [facility] No Information [address] Mills Marisol. [address] , [address], [place], [address], [place]. tel:[phone] [facility] Eye [facility], [address], [place], [place], [address], [place] tel:[phone] [facility] No Information 6[address] 7 Lina Damon. [address] , [address], [place], [address], [place]. tel:[phone] Family History Family Member Type Diagnosis Age At Onset No Information Payers Payer name Insurance type Covered alliance party ID Authoriza tidena(s) [employer] Claims [id number] Social History Type Description Quantity Date Captured Comments Sex Female Smoking Status No Information Chief Complaint And Reason For Visit No Information Reason For Referral Reason For Referral No Information History Of Present Illness Encounter Date Complaint History Of Prese nt Illness No Information Functional Status Date Functional Assessmen t No Information Instructions Date Instruction Additional Infor mation No Information Assessments Type Assessment Date No Information Patient Care Teams Name Effective Dates (start - stop) Status Members No Information
--- OUTSIDE RECORDS SUMMARY | 2024-10-19 08:14 | XMS_ITS | Encounter Summary ---
Author Organization [facility] Address [address] [place] [address] Care Team Providers Care Criminal Justice Department Chair Name Role Phone Venkat Webb MD Unavailable Encounter Details Date Type Department Care Team (Late st Contact Info) Description 01/21/2014 Therapy Visit [facility] Orthopedics [address] [address] [place] [address] [address] Social History Tobacco Use Types [...] on filedocumented in this encounter Care Teams Criminal Justice Department Chair Relationship Specialty Start Date End Date Venkat Webb MD Orthopedic Surgery 10/08/12 documented as of this encounter
--- OUTSIDE RECORDS SUMMARY | 2024-10-19 08:14 | XMS_ITS | Clinical Summary ---
Author Organization [facility] Address [address] [place] [address] Phone Care Team Providers Care Librarian Specialist Name Role Phone Hussein Gonzalez MD Primary [...] Comments Blood Pressure 140/82 07/24/2022 11:30 AM SR. STRATEGIC SOURCING MANAGER Pulse 96 07/24/2022 11:30 AM SR. STRATEGIC SOURCING MANAGER Temperature 35.9 C (96.6 F) 07/24/2022 11:30 AM SR. STRATEGIC SOURCING MANAGER Respiratory Rate - - Oxygen Saturation - - Inhaled Oxygen Concentration - - Weight 72.6 kg (160 lb) 07/24/2022 11:30 AM SR. STRATEGIC SOURCING MANAGER Height 175.3 cm (5' 9 ) 07/24/2022 11:30 AM SR. STRATEGIC SOURCING MANAGER Body Mass Index 23.63 07/24/2022 11:30 AM SR. STRATEGIC SOURCING MANAGER Plan of Treatment Health Maintenance Due Date Last Done Comments Pneumococcal PPSV23/PCV13 65 + Years / High and Highest Risk (1 of 4 - PCV) 1944 Influenza Vaccine (#1) 2024 Care Teams Librarian Specialist Relationship Specialty Start Date End Date Hussein Gonzalez MD [address] [place] [address] PCP - General Internal Medicine 12/03/21
[2024-10-19 10:10] LABS: Hemoglobin 12.2 g/dL (12.0-15.0); Mean Corpuscular HGB Conc 32.1 g/dl (32-36); Mean Corpuscular Hemoglobin 33.6 pg (26-34); Mean Corpuscular Volume 104.7 fl (80-100); Mean Platelet Volume 10.2 fl (7.4-10.4); Platelet Count Result 226 k/mm3 (150-375); Red Blood Count 3.63 M/mm3 (4.2-5.4); Red Cell Distribution Width 12.4 % (11.5-14.5); White Blood Count 3.9 K/mm3 (4.5-10.0)
[2024-10-19 10:25] LABS: Albumin Level 3.8 g/dL (3.5-5.1); Anion Gap 10 mmol/L (4-12); Blood Urea Nitrogen 60 mg/dL (7-17); Calcium 8.7 mg/dL (8.4-10.2); Carbon Dioxide 24 mmol/L (22-30); Chloride 105 mmol/L (98-107); Estimated Glomerular Filt Rate 21; Glucose 88 mg/dL (65-110); Potassium 4.9 mmol/L (3.4-5.0); Sodium 139 mmol/L (137-145)
[2024-10-19 10:27] LABS: Creatinine Urine 50.1 mg/dL; Total Protein Urine Random 9 mg/dL; Ur Ttl Prot Creatinine Ratio 0.18 mg/mg (0-0.20)
[2024-10-19 10:31] LABS: Parathyroid Intact 112.5 pg/mL (14.5-75.2)
[2024-10-19 11:16] LABS: Thyroid Stimulating Hormone Reflex 0.176 uIU/mL (0.465-4.68)
[2024-10-19 14:19] LABS: Free T4 Free Thyroxine Reflex 1.56 ng/dL (0.78-2.19)
[2024-10-19 15:07] LABS: Total Triiodothyronine (T3) 0.98 NG/ML (0.97-1.69)
== END 2024-10-19 08:02 | disposition home or self-care (01) ==
PROVIDERS: Family Medicine; PCP Nurse Practitioner Family; Visit Provider Internal Medicine Nephrology
DX: E03.9 Hypothyroidism, unspecified (principal); N18.4 Chronic kidney disease, stage 4 (severe)
CPT/HCPCS: 36415; 80069; 82570; 83970; 84156; 84439; 84443; 84480; 85027

== ENCOUNTER 2024-11-30 08:05 | Outpatient (CLI) | payer MEDICARE, SELFPAY ==
--- OUTSIDE RECORDS SUMMARY | 2024-11-30 08:11 | XMS_ITS | Clinical Summary ---
Author Organization [facility] Address [address] [place] [address] Care Team Providers Care Composite Technician Name Role Phone Unavailable Primary Care Provider [...] Vaccine ( - 2023-2 5 season) 2024 Meningococcal B Vaccine Aged Out No l onger eligible based on patient's age to complete this topic Meningococcal Vaccine Aged Out No amber amrita eligible based on patient's age to complete this topic RSV Immunizations Under 20 Months Aged Out No longer eligible based on patient's age to complete this topic
--- OUTSIDE RECORDS SUMMARY | 2024-11-30 08:11 | XMS_ITS | Encounter Summary ---
Author Organization [facility] Address [address] [facility] [place] [address] Care Team Providers Care Cashier Parking Lot Name Role Phone Venkat Webb MD Unavailable [phone] Encounter Details Date Type Department Care Team (Late st Contact Info) Description 12/28/2013 Therapy Visit [facility] Orthopedics [address] [address] [place] [address] [address] Social History Tobacco Use Types [...] on filedocumented in this encounter Care Teams Cashier Parking Lot Relationship Specialty Start Date End Date Venkat Webb MD Orthopedic Surgery 10/08/12 documented as of this encounter
--- OUTSIDE RECORDS SUMMARY | 2024-11-30 08:11 | XMS_ITS | Clinical Summary ---
Author Organization [facility] Address [address] [place] [address] Phone Care Team Providers Care Health Care Facility Administrator Name Role Phone Hussein Gonzalez MD Primary [...] Comments Blood Pressure 140/82 07/24/2022 11:30 AM PHARMACIST INTERN Pulse 96 07/24/2022 11:30 AM PHARMACIST INTERN Temperature 35.9 C (96.6 F) 07/24/2022 11:30 AM PHARMACIST INTERN Respiratory Rate - - Oxygen Saturation - - Inhaled Oxygen Concentration - - Weight 72.6 kg (160 lb) 07/24/2022 11:30 AM PHARMACIST INTERN Height 175.3 cm (5' 9 ) 07/24/2022 11:30 AM PHARMACIST INTERN Body Mass Index 23.63 07/24/2022 11:30 AM PHARMACIST INTERN Plan of Treatment Health Maintenance Due Date Last Done Comments Pneumococcal PPSV23/PCV13 65 + Years / High and Highest Risk (1 of 4 - PCV) 1946 Pneumococcal PPSV23/PCV13 65 + Years / Low and Medium Risk (1 of 4 - PCV) 2003 Influenza Vaccine (Season Ended) 2025 Care Teams Health Care Facility Administrator Relationship Specialty Start Date End Date Hussein Gonzalez MD [address] [place] [address] PCP - General Internal Medicine 12/03/21
--- OUTSIDE RECORDS SUMMARY | 2024-11-30 08:11 | XMS_ITS | Referral Summary ---
Author Organization [facility] [address] Address [address] [place] [address] Care Team Providers Care Brick Or Block Maker Name Role Phone Roddy Gregorio MD Unavailable [phone] Hussein Gonzalez MD Primary Care Provider [...] tablet (100 mcg total) by mouth data programmer before breakfast Active aspirin 81 mg enteric coated tablet Take 1 tablet (81 mg total) by mouth daily Active ascorbic acid (VITAMIN C) 250 mg tablet Take 1 tablet (250 mg total) by mouth daily Active vit O-Z-ihgppw-zinc-l utein 226-90-0.8-5 mg capsule Take by mouth Active Active Problems Problem Noted Date Diagnosed Date Adrenal benign neoplasm, 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 Patient does not drink 2 Frequency of Binge Drinking Not on file 05/26 Comments No Sex and Gender Information Value Date Recorded Sex Assigned at Not on file Legal Sex Female 2:57 PM DIRECTOR BUSINESS TRAVEL Gender Identity Not on file Sexual Orientation Not on file Last Filed Vital Signs Vital Sign Reading Time Taken Comments Blood Pressure 130/82 08/20/2024 9:25 AM DIRECTOR BUSINESS TRAVEL Pulse 68 08/20/2024 9:25 AM DIRECTOR BUSINESS TRAVEL Temperature 36.5 C (97.7 F) 06/30/2022 8:08 AM DIRECTOR BUSINESS TRAVEL Respiratory Rate 16 06/30/2022 8:08 AM DIRECTOR BUSINESS TRAVEL Oxygen Saturation 99% 08/20/2024 9:25 AM DIRECTOR BUSINESS TRAVEL Inhaled Oxygen Concentration - - Weight 77.1 kg (170 lb) 08/20/2024 9:25 AM DIRECTOR BUSINESS TRAVEL Height 172.7 cm (5' 8 ) 08/20/2024 9:25 AM DIRECTOR BUSINESS TRAVEL Body Mass Index 25.85 08/20/2024 9:25 AM DIRECTOR BUSINESS TRAVEL Plan of Treatment Not on file Insurance [facility] Advance Directives For more information, please contact: [phone] * Full Code (Latest Code Status on File) Date Activated Date Inactivated Comments 06/28/2022 12:52 PM 06/30/2022 4:57 PM * Full Code Date Activated Date Inactivated Comments 04/24/2022 8:35 AM 04/25/2022 4:54 AM Care Teams Brick Or Block Maker Relationship Specialty Start Date End Date Hussein Gonzalez MD [address] [place] [address] PCP - General Family Practice 12/11/22 [place] [address] [place] [address] Consulting Physician Urology 06/28/22
--- OUTSIDE RECORDS SUMMARY | 2024-11-30 08:11 | XMS_ITS | Clinical Summary ---
Author Organization [facility] [address] Address [address] [place] [address] Care Team Providers Care Spray Gun Repairer Helper Name Role Phone Roddy Gregorio MD Unavailable [phone] Hussein Gonzalez MD Primary Care Provider [...] 1 tablet (100 mcg total) by mouth measurement operator before breakfast Active aspirin 81 mg enteric coated tablet Take 1 tablet (81 mg total) by mouth daily Active ascorbic acid (VITAMIN C) 250 mg tablet Take 1 tablet (250 mg total) by mouth daily Active vit M-E-mklsdj-zinc-l utein 226-90-0.8-5 mg capsule Take by mouth Active Active Problems Problem Noted Date Diagnosed Date Adrenal benign neoplasm, 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 Overview (06/17/2022): Added automatically from request for surgery [id number] CVA (cerebral vascular accident) 07/11/2021 Mitral valve insufficiency 10/19/2014 Overview (11/29/2016): Mitral regurgitation Aortic valve stenosis 10/19/2014 Overview (11/29/2016): Aortic stenosis Sensation of chest tightness 09/22/2014 Overview (11/29/2016): Chest tightness Ventricular premature beats 09/22/2014 Overview (11/29/2016): PVCs (premature ventricular contractions) Hypertension 09/22/2014 Overview (11/29/2016): Hypertension Dyslipidemia 09/22/2014 Overview (11/29/2016): Dyslipidemia Hypothyroidism 09/22/2014 Overview (11/29/2016): Hypothyroidism Overweight 09/22/2014 Overview (11/29/2016): Overweight Surgical History Surgery Date Site/Laterality Comments HYSTERECTOMY KNEE ARTHROPLASTY Bilateral FEMUR FRACTURE SURGERY Right HUMERUS FRACTURE SURGERY HIP ARTHROPLASTY Right Medical History Medical History Date Comments Anxiety CVA (cerebral vascular accident) ([facility]) 06/2021 mild, no residual deficit HTN (hypertension) [...] on file Legal Sex Female 2:57 PM RECREATION ASSISTANT Gender Identity Not on file Sexual Orientation Not on file Obstetrics History Last Filed Vital Signs Vital Sign Reading Time Taken Comments Blood Pressure 130/82 08/20/2024 9:25 AM RECREATION ASSISTANT Pulse 68 08/20/2024 9:25 AM RECREATION ASSISTANT Temperature 36.5 C (97.7 F) 06/30/2022 8:08 AM RECREATION ASSISTANT Respiratory Rate 16 06/30/2022 8:08 AM RECREATION ASSISTANT Oxygen Saturation 99% 08/20/2024 9:25 AM RECREATION ASSISTANT Inhaled Oxygen Concentration - - Weight 77.1 kg (170 lb) 08/20/2024 9:25 AM RECREATION ASSISTANT Height 172.7 cm (5' 8 ) 08/20/2024 9:25 AM RECREATION ASSISTANT Body Mass Index 25.85 08/20/2024 9:25 AM RECREATION ASSISTANT Plan of Treatment Health Maintenance Due Date Last Done Comments Depression Screening 1938 Hepatitis B Screening 1958 Zoster Vaccine (1 of 2) 1988 Well Visit 65+ 2003 DTaP/Tdap/Td Vaccine (1 - Tdap) 03/02/2013 3 Fall Risk Assessment 06/30/2023 06/30/2022 Influenza Vaccine (#1) 2024 Pneumococcal vaccine 65+ Completed 021, 11/29/2017, 06/16/2003 Insurance HEALTHCARE Advance Directives For more information, please contact: [phone] * Full Code (Latest Code Status on File) Date Activated Date Inactivated Comments 06/28/2022 12:52 PM 06/30/2022 4:57 PM * Full Code Date Activated Date Inactivated Comments 04/24/2022 8:35 AM 04/25/2022 4:54 AM Care Teams Spray Gun Repairer Helper Relationship Specialty Start Date End Date Hussein Gonzalez MD [address] [facility] [address] [place] [address] PCP - General Family Practice 12/11/22 [place] [address] [place] [address] Consulting Physician Urology 06/28/22
--- OUTSIDE RECORDS SUMMARY | 2024-11-30 08:11 | XMS_ITS | Encounter Summary ---
Author Organization [facility] Address [address] [place] [address] Care Team Providers Care Quilter Fixer Name Role Phone Venkat Webb MD Unavailable [phone] Encounter Details Date Type Department Care Team (Late st Contact Info) Description 01/21/[address] [facility] Orthopedics [address] [address] [place] [address] [address] Social History Tobacco Use Types [...] on filedocumented in this encounter Care Teams Quilter Fixer Relationship Specialty Start Date End Date Venkat Webb MD Orthopedic Surgery 10/08/12 documented as of this encounter
--- OUTSIDE RECORDS SUMMARY | 2024-11-30 08:11 | XMS_ITS | Clinical Summary ---
Author Organization [facility] Address [address] [place] [address] Care Team Providers Care Lathe Machine Operator Name Role Phone Venkat Webb MD Unavailable [phone] Source Comments [facility],non-owned Affiliates and Associated Physician Practices is amultiple site organization consisting of ambulatory clinics and hospital sitesin [place], [place], [place] and [place]. This disclosure is being madepursuant to the Care Everywhere program and may not contain all information available regarding this patient. Last updated 18.[facility] Allergies Active Allergy Reactions Criticality Noted Date [...] 2013 COVID-19 VACCINE (2023-2 5 season) 2024 DEPRESSION SCREENING 08/25/2024 MEDICARE AWV CALENDAR YEAR 2024 INFLUENZA VACCINE (Season Ended) 2025 HEPATITIS B VACCINE Aged Out No longe r eligible based on patient's age to complete this topic HIB VACCINE Aged Out No longer eligi ble based on patient's age to complete this topic HPV VACCINE Aged Out No longer eligi ble based on patient's age to complete this topic MENINGOCOCCAL (Group B) VACC INE SHARED DECISION-MAKING Aged Out No longer eligibl e based on patient's age to complete this topic MENINGOCOCCAL GROUPS A/C/Y/W VACCINE Aged Out No longer eligible b ased on patient's age to complete this topic Medical Devices Implanted Type Area Roll Tension Tester Device Identifier Shelf Expiration Date Model / Serial / Lot Glue Floseal Matrix Hemsta 10ml Implanted:Qty: 1 on 12/08/2012 at [facility] [employer] 02/21/2014 [id number] / / [id number] Trilogy Acetabular System Liner Implanted:Qty: 1 on 12/08/2012 by Jesus Beckwith IV, MD at [facility] Right: Hip 09/23/2017 / / [id number] Shell With Cluster Holes Implanted:Qty: 1 on 12/08/2012 at [facility] Right: Hip 03/23/2021 / / [id number] Sl Revision Stem Uncemented Implanted:Qty: 1 on 12/08/2012 by Jesus Beckwith IV, MD at [facility] Right: Hip 02/21/2014 [id number] 9 / / [id number] Ceramic Femoral Head Implanted:Qty: 1 on 12/08/2012 by Jesus Beckwith IV, MD at [facility] Right: Hip 09/23/2022 [id number] / / [id number] Brng [id number] Vngrd Arcm Kn Ant Stab Implanted:Qty: 1 on 11/28/2016 by Venkat Webb MD at [facility] Right: Knee [employer] 11/20/2021 [id number] / / [id number] Cmnt Bone Co Hv 40gm Implanted:Qty: 1 on 11/28/2016 by Venkat Webb MD at [facility] Right: Knee [employer] 04/24/2018 [id number] / / [id number] Cmpnt Ptlr 31mm 1 Pg Wire Ascnt Arcm Kn Implanted:Qty: 1 on 11/28/2016 by Venkat Webb MD at [facility] Right: Knee [employer] 11/04/2021 [id number] / / [id number] Tray Tib 79mm Kn Cocr I Beam Implanted:Qty: 1 on 11/28/2016 by Venkat Webb MD at [facility] Right: Knee [employer] 10/24/2026 [id number] / / [id number] Cmpnt Fem Kn Rt Cr Cmnt Prm Vngrd Intlk Implanted:Qty: 1 on 11/28/2016 by Venkat Webb MD at [facility] Right: Knee [employer] 10/23/2026 [id number] / / [id number] Advance Directives Documents on File Type Date Recorded Patient Cattle Manager Expl anation Adv Directive/Living Will/POA 12/13/2012 2:57 PM * Full Code (Latest Code Status on File) Date Activated Date Inactivated Comments 11/28/2016 12:21 PM 12/02/2016 12:50 PM * FULL RESUSCITATION Date Activated Date Inactivated Comments 12/08/2012 6:20 PM 12/12/2012 1:07 PM Care Teams Lathe Machine Operator Relationship Specialty Start Date End Date Venkat Webb MD Orthopedic Surgery 10/08/12
--- OUTSIDE RECORDS SUMMARY | 2024-11-30 08:11 | XMS_ITS | Continuity of Care Document ---
Author Organization [facility] Address [address] [place] [address] Phone Care Team Providers Care Print Shop Helper Name Role Phone Marisol Mills Unavailable Unavailable Procedures Procedure Date Office/outpatient Visit, Est Eye Exam & Treatment Refraction Eye Exam & Treatment Refraction Eye Exam & Treatment Advance Directives Directive Yes / No Effective Date File Name No Information Encounters Encounter Description Practice Location Reason(s) For Visit Diagnoses Date Provider Providers Copied on Encounter Office/outpat ient Visit, Est [facility], [address] [place] [address] [address], [place], [place], [address], tel:[phone] [facility] No Information 0 Lina Adenn. [address], [place], [place], [facility], . tel:[phone] [facility], [address] [place] [address] [address], [place], [place], [address], tel:[phone] [facility] No Information [address] Lina [address]. [address], [place], [place], [facility], [place]. tel:[phone] [facility], [address] [place] [address] [address], [place], [place], [address], tel:[phone] [facility] No Information [address] Mills Marisol. [address], [place], [address], [place]. tel:[phone] [facility], [address], [place], [place], [address], [place] tel:[phone] [facility] No Information [address] Lina [address]on. [address] [facility], [place], [address], [place]. tel:[phone] Family History Family Member Type Diagnosis Age At Onset No Information Payers Payer name Insurance type Covered green party ID Authoriza tidena(s) [employer] Claims [id number] Social History Type Description Quantity Date Captured [...]
[2024-11-30 16:48] LABS: Cholesterol 198 mg/dL (0-200); HDL Direct 73 mg/dL; Triglycerides 147 mg/dL (<150)
[2024-11-30 16:59] LABS: LDL Cholesterol Direct 77 mg/dL
[2024-11-30 17:04] LABS: Free T4 Free Thyroxine 1.16 ng/dL (0.78-2.19)
[2024-11-30 17:17] LABS: Thyroid Stimulating Hormone 0.319 uIU/mL (0.465-4.680)
== END 2024-11-30 08:06 | disposition home or self-care (01) ==
PROVIDERS: PCP Nurse Practitioner Family; Visit Provider Nurse Practitioner Family
DX: E03.9 Hypothyroidism, unspecified (principal); E78.5 Hyperlipidemia, unspecified
CPT/HCPCS: 36415; 80061; 84439; 84443

== ENCOUNTER 2025-02-23 08:04 | Outpatient (CLI) | payer MEDICARE, SELFPAY ==
--- OUTSIDE RECORDS SUMMARY | 2025-02-23 08:08 | XMS_ITS | Encounter Summary ---
Author Organization [facility] Address [address] [facility] [place] [address] Care Team Providers Care Cat Skinner Name Role Phone Venkat Webb MD Unavailable Encounter Details Date Type Department Care Team (Late st Contact Info) Description 01/21/2014 Therapy Visit [facility] Orthopedics [address] [address] [place] [address] [address] Social History Tobacco Use Types Packs/Day Years Used Date Smoking Tobacco: Never Smokeless Tobacco: Never Alcohol Use Standard Drinks/Week Comments No 0 (1 standard drink = 0.6 oz pur e alcohol) Comments No Sex and Gender Information Value Date Recorded Sex Assigned at Not on file Legal Sex Female 2:50 PM EMBROIDERY SPECIALIST Gender Identity Not on file Sexual Orientation Not on file documented as of this encounter Plan of Treatment Not on file documented as of this encounter Visit Diagnoses Not on filedocumented in this encounter Care Teams Cat Skinner Relationship Specialty Start Date End Date Venkat Webb MD Orthopedic Surgery 10/08/12 documented as of this encounter
--- OUTSIDE RECORDS SUMMARY | 2025-02-23 08:08 | XMS_ITS | Referral Summary ---
Author Organization [facility] [address] Address [address] [place] [address] Care Team Providers Care Telegraph Repeater Technician Name Role Phone Roddy Gregorio MD Unavailable [phone] Hussein Gonzalez MD Primary Care Provider [...] 1 tablet (100 mcg total) by mouth early childhood associate teacher before breakfast Active aspirin 81 mg enteric coated tablet Take 1 tablet (81 mg total) by mouth daily Active ascorbic acid (VITAMIN C) 250 mg tablet Take 1 tablet (250 mg total) by mouth daily Active vit S-D-awayoe-zinc-l utein 226-90-0.8-5 mg capsule Take by mouth Active Active Problems Problem Noted Date Diagnosed Date Adrenal benign neoplasm, 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 2 Overview (06/17/2022): Added automatically from request for surgery [id number] CVA (cerebral vascular accident) 07/11/2021 Mitral valve [...] on file Legal Sex Female 2:57 PM HIGH SCHOOL MATH TUTOR Gender Identity Not on file Sexual Orientation Not on file Last Filed Vital Signs Vital Sign Reading Time Taken Comments Blood Pressure 130/82 08/20/2024 9:25 AM HIGH SCHOOL MATH TUTOR Pulse 68 08/20/2024 9:25 AM HIGH SCHOOL MATH TUTOR Temperature 36.5 C (97.7 F) 06/30/2022 8:08 AM HIGH SCHOOL MATH TUTOR Respiratory Rate 16 06/30/2022 8:08 AM HIGH SCHOOL MATH TUTOR Oxygen Saturation 99% 08/20/2024 9:25 AM HIGH SCHOOL MATH TUTOR Inhaled Oxygen Concentration - - Weight 77.1 kg (170 lb) 08/20/2024 9:25 AM HIGH SCHOOL MATH TUTOR Height 172.7 cm (5' 8) 08/20/2024 9:25 AM HIGH SCHOOL MATH TUTOR Body Mass Index 25.85 08/20/2024 9:25 AM HIGH SCHOOL MATH TUTOR Plan of Treatment Not on file Insurance [facility] Advance Directives For more information, please contact: [phone] * Full Code (Latest Code Status on File) Date Activated Date Inactivated Comments 06/28/2022 12:52 PM 06/30/2022 4:57 PM * Full Code Date Activated Date Inactivated Comments 04/24/2022 8:35 AM 04/25/2022 4:54 AM Care Teams Telegraph Repeater Technician Relationship Specialty Start Date End Date Hussein Gonzalez MD [address] [place] [address] PCP - General Family Practice 12/11/22 [place] [address] [place] [address] Consulting Physician Urology 06/28/22
--- OUTSIDE RECORDS SUMMARY | 2025-02-23 08:08 | XMS_ITS | Clinical Summary ---
Author Organization [facility] Address [address] [facility] [place] [address] Care Team Providers Care Spotter Name Role Phone Venkat Webb MD Unavailable [phone] Source Comments [facility],non-owned Affiliates and Associated Physician Practices is amultiple site organization consisting of ambulatory clinics and hospital sitesin [place] and [place]. This disclosure is being madepursuant to the Care Everywhere program and may not contain all information available regarding this patient. Last updated 18.[facility] Allergies Active Allergy Reactions Criticality Noted Date Comments Oxycodone Nausea and/or Vomiting 10/28/2012 Hallucinations Medications * Be aware that medications may not be up to date on this document. Alwaysverify current medications with the patient. spironolactone (ALDACTONE) 25 MG tablet Take 25 mg by mouth 2 times daily. Active verapamil SR 24hr (VERELAN) 240 MG capsule Take 240 mg by mouth at bedtime. Active Calcium Carbonate-Vit D-Min (CALCIUM 600 + MINERALS PO) Take by mouth once daily after lunch. Active Vitamin D, Cholecalciferol, 400 UNITS CHEW Take by mouth once daily after lunch. Active levothyroxine (SYNTHROID) 125 MCG tabletIndications: Right knee pain, unspecified chronicity,Primary osteoarthritis of right knee daily before breakfast 7 Active Biotin (BIOTIN 5000) 5 MGIndications:Righ t knee pain, unspecified chronicity,Primary osteoarthritis of right knee Take by mouth once daily Active Tetrahydrozoline HCl (VISION CLEAR OP) Take by mouth once daily Active cranberry (CRANBERRY) 400 MG tablet Take 800 mg by mouth once daily Active Naphazoline-Phenir amine (OPCON-A OP) 1 Drop by Ophthalmic route as needed Active potassium chloride SA (MICRO-K) 10 MEQ capsule Take 10 mEq by mouth once daily 8 Active PREVNAR 13 vaccine 8 Active losartan (COZAAR) 50 MG tablet Take 50 mg by mouth once daily 8 Active Active Problems Problem Noted Date Diagnosed [...] on file Legal Sex Female 2:50 PM CANDY ROLLER Gender Identity Not on file Sexual Orientation [...] 7:53 AM CDT Height 172.7 cm (5' 8) 11/28/2016 7:53 AM CDT Body Mass Index [...] - 1-dose 75+ series) 2013 COVID-19 VACCINE (1 - 2023-2 5 season) 2024 DEPRESSION SCREENING 08/25/2024 INFLUENZA VACCINE (Season Ended) 2025 HEPATITIS B [...] this topic Medical Devices Implanted Type Area Carbide Die Maker Device Identifier Shelf Expiration Date Model / Serial / Lot Glue Floseal Matrix Hemsta 10ml Implanted:Qty: 1 on 12/08/2012 at [facility] 02/21/2014 [id number] / / [id number] Trilogy Acetabular System Liner Implanted:Qty: 1 on 12/08/2012 by Jesus Beckwith IV, MD at [facility] Right: Hip 09/23/2017 / / [id number] Shell With Cluster Holes Implanted:Qty: 1 on 12/08/2012 at [facility] Right: Hip 03/23/2021 / / [id number] Sl Revision Stem Uncemented Implanted:Qty: 1 on 12/08/2012 by Jesus Beckwith IV, MD at [facility] Right: Hip 02/21/2014.92631.21 9 / / [id number] Ceramic Femoral Head Implanted:Qty: 1 on 12/08/2012 by Jesus Beckwith IV, MD at [facility] Right: Hip 09/23/2022 [id number] / / [id number] [id number] Vngrd Arcm Kn Ant Stab Implanted:Qty: 1 on 11/28/2016 by Venkat Webb MD at [facility] Right: Knee [employer] 11/20/2021 [id number] / / [id number] Cmnt Bone Co Hv 40gm Implanted:Qty: 1 on 11/28/2016 by Venkat Webb MD at [facility] Right: Knee [facility] 04/24/2018 [id number] / / [id number] Cmpnt Ptlr 31mm 1 Pg Wire Ascnt Arcm Kn Implanted:Qty: 1 on 11/28/2016 by Venkat Webb MD at [facility] Right: Knee [employer] 11/04/2021 [id number] / / [id number] Tray Tib 79mm Kn Cocr I Beam Implanted:Qty: 1 on 11/28/2016 by Venkat Webb MD at [facility] Right: Knee [employer] 10/24/2026 [id number] / / [id number] Cmpnt Fem Kn Rt Cr Cmnt Prm Vngrd Intlk Implanted:Qty: 1 on 11/28/2016 by Venkat Webb MD at [facility] Right: Knee [employer] 10/23/2026 [id number] / / [id number] Insurance [facility] MEDICARE [employer] Advance Directives Documents on File Type Date Recorded Patient Independent Marketing Consultant Expl anation Adv Directive/Living Will/POA 12/13/2012 2:57 PM * Full Code (Latest Code Status on File) Date Activated Date Inactivated Comments 11/28/2016 12:21 PM 12/02/2016 12:50 PM * FULL RESUSCITATION Date Activated Date Inactivated Comments 12/08/2012 6:20 PM 12/12/2012 1:07 PM Care Teams Spotter Relationship Specialty Start Date End Date Venkat Webb MD Orthopedic Surgery 10/08/12
--- OUTSIDE RECORDS SUMMARY | 2025-02-23 08:08 | XMS_ITS | Clinical Summary ---
Author Organization [facility] [address] Address [address] [place] [address] Care Team Providers Care Steam Power Plant Operator Name Role Phone Roddy Gregorio MD Unavailable [phone] Hussein Gonzalez MD Primary Care Provider [...] 1 tablet (100 mcg total) by mouth marketing database analyst before breakfast Active aspirin 81 mg enteric coated tablet Take 1 tablet (81 mg total) by mouth daily Active ascorbic acid (VITAMIN C) 250 mg tablet Take 1 tablet (250 mg total) by mouth daily Active vit C-I-gzxwgg-zinc-l utein 226-90-0.8-5 mg capsule Take by mouth Active Active Problems Problem Noted Date Diagnosed Date Adrenal benign neoplasm, 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 Overview (06/17/2022): Added automatically from request for surgery [id number] CVA (cerebral vascular accident) 07/11/2021 Mitral valve [...] Date Comments Anxiety CVA (cerebral vascular accident) ([facility]) 06/2021 mild, no residual deficit HTN (hypertension) [...] on file Legal Sex Female 2:57 PM HORSE DOCTOR Gender Identity Not on file Sexual Orientation Not on file Obstetrics History Last Filed Vital Signs Vital Sign Reading Time Taken Comments Blood Pressure 130/82 08/20/2024 9:25 AM HORSE DOCTOR Pulse 68 08/20/2024 9:25 AM HORSE DOCTOR Temperature 36.5 C (97.7 F) 06/30/2022 8:08 AM HORSE DOCTOR Respiratory Rate 16 06/30/2022 8:08 AM HORSE DOCTOR Oxygen Saturation 99% 08/20/2024 9:25 AM HORSE DOCTOR Inhaled Oxygen Concentration - - Weight 77.1 kg (170 lb) 08/20/2024 9:25 AM HORSE DOCTOR Height 172.7 cm (5' 8) 08/20/2024 9:25 AM HORSE DOCTOR Body Mass Index 25.85 08/20/2024 9:25 AM HORSE DOCTOR Plan of Treatment Health Maintenance Due Date Last Done Comments Depression Screening 1940 Osteoporosis Screening-Bone Density Scan 1938 Hepatitis B Screening 1956 Zoster Vaccine (1 of 2) 1988 Well Visit 65+ 2003 DTaP/Tdap/Td Vaccine (1 - Tdap) 03/02/2013 3 Fall Risk Assessment 06/30/2023 06/30/2022 Influenza Vaccine (Season Ended) 2025 Pneumococcal vaccine 65+ Completed 021, 11/29/2017, 06/16/2003 Insurance [facility] [facility] Advance Directives For more information, please contact: [phone] * Full Code (Latest Code Status on File) Date Activated Date Inactivated Comments 06/28/2022 12:52 PM 06/30/2022 4:57 PM * Full Code Date Activated Date Inactivated Comments 04/24/2022 8:35 AM 04/25/2022 4:54 AM Care Teams Steam Power Plant Operator Relationship Specialty Start Date End Date Hussein Gonzalez MD [address] [facility] [address] [place], [place] [id number] PCP - General Family Practice 12/11/22 [place] [address] [place] [address] Consulting Physician Urology 06/28/22
--- OUTSIDE RECORDS SUMMARY | 2025-02-23 08:08 | XMS_ITS | Continuity of Care Document ---
Author Organization [facility] Address [address] [place] [address] Phone Care Team Providers Care Adjunct Instructor In Economics Name Role Phone Marisol Mills Unavailable Unavailable Procedures Procedure Date Office/outpatient Visit, Est Eye Exam & Treatment Refraction Eye Exam & Treatment Refraction Eye Exam & Treatment Advance Directives Directive Yes / No Effective Date File Name No Information Encounters Encounter Description Practice Location Reason(s) For Visit Diagnoses Date Provider Providers Copied on Encounter Office/outpat ient Visit, Est [facility], [address] [place] [address] [address], [place], [place], [id number], tel:[phone] [facility] No Information 0 Lina Adenn. [address], [place], [place], [facility], . tel:[phone] [facility], [address] [place] [address] [address], [place], [place], [id number], tel:[phone] [facility] No Information 201 0 Lina Adenn. [address], [place], [place], [facility], [place]. tel:[phone] [facility], [address] [place] [address] [address], [place], [place], [id number], tel:[phone] [facility] No Information [address] Marisol. [address] , [address], [place], [address], [place]. tel:[phone] [facility], [address], [place], [place], [id number], [place] tel:[phone] [facility] No Information [address] Lina Damon. [address] [facility] [address] , [address], [place], [address], [place]. tel:[phone] Family History Family Member Type Diagnosis Age At Onset No Information Payers Payer name Insurance type Covered democrat ID Authoriza tidena(s) [employer] [id number] Social History Type Description Quantity Date Captured [...]
--- OUTSIDE RECORDS SUMMARY | 2025-02-23 08:08 | XMS_ITS | Encounter Summary ---
Author Organization [facility] Address [address] [facility] [place] [address] Care Team Providers Care Bonbon Cream Warmer Name Role Phone Venkat Webb MD Unavailable Encounter Details Date Type Department Care Team (Late st Contact Info) Description 12/28/2013 Therapy Visit [facility] Orthopedics [address] [address] [place] [address] [address] Social History Tobacco Use Types Packs/Day Years Used Date Smoking Tobacco: Never Smokeless Tobacco: Never Alcohol Use Standard Drinks/Week Comments No 0 (1 standard drink = 0.6 oz pur e alcohol) Comments No Sex and Gender Information Value Date Recorded Sex Assigned at Not on file Legal Sex Female 2:50 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
--- OUTSIDE RECORDS SUMMARY | 2025-02-23 08:08 | XMS_ITS | Clinical Summary ---
Author Organization [facility] Address [address] [place] [address] Care Team Providers Care Inspector Watch Train Name Role Phone Unavailable Primary Care Provider [...] Td Vaccines ( 1 - Tdap) 1957 Pneumococcal Vaccine: 50+ Ye ars (1 of 1 - PCV) 1988 Zoster Vaccines (1 of 2) 1988 RSV Immunization or 60+ Years (1 - 1-dose 75+ series) 2013 COVID-19 Vaccine (2023-2 5 season) 2024 Meningococcal B Vaccine Aged Out No l onger eligible based on patient's age to complete this topic Meningococcal Vaccine Aged Out No amber amrita eligible based on patient's age to complete this topic RSV Immunizations Under 20 Months Aged Out No longer eligible based on patient's age to complete this topic
--- OUTSIDE RECORDS SUMMARY | 2025-02-23 08:08 | XMS_ITS | Clinical Summary ---
Author Organization [facility] Address [address] [place] [address] Phone Care Team Providers Care Bull Ladle Tender Name Role Phone Hussein Gonzalez MD Primary Care Provider Allergies Active Allergy Reactions Criticality Noted Date Comments Codeine 12/24/2021 Medications ALPRAZolam (XANAX) 0.25 MG tablet Take 0.25 [...] MCG (1000 UT) capsule Take by mouth Active Biotin 1000 MCG chewable tablet Chew Acti ve Cranberry 500 MG tablet Take by mouth [...] Dyslipidemia Hypertension 09/22/2014 Overview (07/24/2022): Hypertension Immunizations Immunization Administration Dates Next Due Pneumococcal Conjugate 04/25/2021 Family History Medical History Relation Comments Kidney disease Neg Hx Social History Tobacco Use Types Packs/Day Years Used Date Smoking Tobacco: Never Smokeless Tobacco: Never Alcohol Use Standard Drinks/Week Comments Not Currently 0 (1 standard drink = 0.6 oz pur e alcohol) Comments Unknown Sex and Gender Information Value Date Recorded Sex Assigned at Not on file Legal Sex Female 9:19 AM MST Gender Identity Not on file Sexual Orientation Not on file Last Filed Vital Signs Vital Sign Reading Time Taken Comments Blood Pressure 140/82 07/24/2022 11:30 AM CABLE TELEVISION INSTALLER Pulse 96 07/24/2022 11:30 AM CABLE TELEVISION INSTALLER Temperature 35.9 C (96.6 F) 07/24/2022 11:30 AM CABLE TELEVISION INSTALLER Respiratory Rate - - Oxygen Saturation - - Inhaled Oxygen Concentration - - Weight 72.6 kg (160 lb) 07/24/2022 11:30 AM CABLE TELEVISION INSTALLER Height 175.3 cm (5' 9) 07/24/2022 11:30 AM CABLE TELEVISION INSTALLER Body Mass Index 23.63 07/24/2022 11:30 AM CABLE TELEVISION INSTALLER Plan of Treatment Health Maintenance Due Date Last Done Comments Pneumococcal PPSV23/PCV13 65 + Years / Low and Medium Risk (1 of 2 - PCV) 1988 Influenza Vaccine (Season Ended) 2025 Insurance [employer] H[employer] Care Teams Bull Ladle Tender Relationship Specialty Start Date End Date Hussein Gonzalez MD [address] [place] [address] PCP - General Internal Medicine 12/03/21
[2025-02-23 12:32] LABS: Hematocrit 39.5 % (37.0-47.0); Hemoglobin 12.1 g/dL (12.0-15.0); Mean Corpuscular HGB Conc 30.6 g/dl (32-36); Mean Corpuscular Hemoglobin 32.6 pg (26-34); Mean Corpuscular Volume 106.5 fl (80-100); Platelet Count Result 237 k/mm3 (150-375); Red Blood Count 3.71 M/mm3 (4.2-5.4); White Blood Count 4.0 K/mm3 (4.5-10.0)
[2025-02-23 12:54] LABS: Total Protein Urine Random 11 mg/dL; Ur Ttl Prot Creatinine Ratio 0.27 mg/mg (0-0.20)
[2025-02-23 13:12] LABS: Parathyroid Intact 89.1 pg/mL (14.5-75.2)
[2025-02-23 14:30] LABS: Albumin Level 4.1 g/dL (3.5-5.1); Anion Gap 6 mmol/L (4-12); Blood Urea Nitrogen 46 mg/dL (7-17); Calcium 9.0 mg/dL (8.4-10.2); Carbon Dioxide 27 mmol/L (22-30); Chloride 101 mmol/L (98-107); Estimated Glomerular Filt Rate 20; Glucose 83 mg/dL (65-110); Potassium 4.8 mmol/L (3.4-5.0); Sodium 134 mmol/L (137-145)
== END 2025-02-23 08:05 | disposition home or self-care (01) ==
LOC: ANHGOSHLAB 08:06
PROVIDERS: PCP Nurse Practitioner Family; Visit Provider Internal Medicine Nephrology
DX: E21.1 Secondary hyperparathyroidism, not elsewhere classified (principal); I12.9 Hypertensive chronic kidney disease with stage 1 through stage 4 chronic kidney disease, or unspecified chronic kidney disease; N18.4 Chronic kidney disease, stage 4 (severe)
CPT/HCPCS: 36415; 80069; 82306; 82570; 83970; 84156; 85027

== ENCOUNTER 2025-06-22 08:03 | Outpatient (CLI) | payer MEDICARE, SELFPAY ==
--- OUTSIDE RECORDS SUMMARY | 2025-06-22 08:10 | XMS_ITS | Encounter Summary ---
Author Organization [facility] Address [address] [facility] [place] [address] Care Team Providers Care Newsagent Name Role Phone Venkat Webb MD Unavailable Encounter Details Date Type Department Care Team (Late st Contact Info) Description 01/21/2014 Therapy Visit [facility] Orthopedics [address] [address] [place] [address] [address] Social History Tobacco Use Types Packs/Day Years Used Date Smoking Tobacco: Never Smokeless Tobacco: Never Alcohol Use Standard Drinks/Week Comments No 0 (1 standard drink = 0.6 oz pur e alcohol) Comments No Sex and Gender Information Value Date Recorded Sex Assigned at Not on file Legal Sex Female 2:50 PM KISS MACHINE 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
--- OUTSIDE RECORDS SUMMARY | 2025-06-22 08:10 | XMS_ITS | Clinical Summary ---
Author Organization [facility] Address [address] [facility] [place] [address] Care Team Providers Care Mailmaster Name Role Phone Venkat Webb MD Unavailable [phone] Source Comments [facility],non-owned Affiliates and Associated Physician Practices is amultiple site organization consisting of ambulatory clinics and hospital sitesin [place], [place], [place] and [place]. This disclosure is being madepursuant to the Care Everywhere program and may not contain all information available regarding this patient. Last updated 18.[facility] Allergies Active Allergy Reactions Criticality Noted Date [...] on file Legal Sex Female 2:50 PM CAREER CENTER DIRECTOR Gender Identity Not on file Sexual Orientation [...] yrs (1 - 1-dose 75+ series) 2013 DEPRESSION SCREENING 08/25/2024 COVID-19 VACCINE (1 - 2023-2 5 season) 2025 INFLUENZA VACCINE (#1) 2025 HEPATITIS B VACCINE Aged Out No [...] this topic Medical Devices Implanted Type Area Learning Facilitator Device Identifier Shelf Expiration Date Model / Serial / Lot Glue Floseal Matrix Hemsta 10ml Implanted:Qty: 1 on 12/08/2012 at [facility] [employer] 02/21/2014 [id number] / / [id number] Trilogy Acetabular System Liner Implanted:Qty: 1 on 12/08/2012 by Jesus Beckwith IV, MD at [facility] Right: Hip 09/23/2017 / / [id number] Shell With Cluster Holes Implanted:Qty: 1 on 12/08/2012 at [facility] Right: Hip 03/23/2021 / / [id number] Sl Revision Stem Uncemented Implanted:Qty: 1 on 12/08/2012 by Jesus Beckwith IV, MD at [facility] Right: Hip 02/21/2014.90114.21 9 / / [id number] Ceramic Femoral Head Implanted:Qty: 1 on 12/08/2012 by Jesus Beckwith IV, MD at [facility] Right: Hip 09/23/2022 [id number] / / [id number] Vngrd Arcm Kn Ant Stab Implanted:Qty: 1 on 11/28/2016 by Venkat Webb MD at [facility] Right: Knee [employer] 11/20/2021 [id number] / / [id number] Cmnt Bone Co Hv 40gm Implanted:Qty: 1 on 11/28/2016 by Venkat Webb MD at [facility] Right: Knee [facility] 04/24/2018 [id number] / / [id number] Cmpnt Ptlr 31mm 1 Pg Wire Ascnt Arcm Kn Implanted:Qty: 1 on 11/28/2016 by Venkat Webb MD at [facility] Right: Knee [employer] 11/04/2021 [id number] / / [id number] Tray Tib 79mm Kn Cocr I Beam Implanted:Qty: 1 on 11/28/2016 by Venkat Webb MD at [facility] Right: Knee [employer] 10/24/2026 [id number] / / [id number] Cmpnt Fem Kn Rt Cr Cmnt Prm Vngrd Intlk Implanted:Qty: 1 on 11/28/2016 by Venkat Webb MD at [facility] Right: Knee [employer] 10/23/2026 [id number] / / [id number] Insurance [facility] MEDICARE [employer] [facility] Care Address: [facility] CLAIMS [address] [address] Advance Directives Documents on File Type Date Recorded 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
--- OUTSIDE RECORDS SUMMARY | 2025-06-22 08:10 | XMS_ITS | Clinical Summary ---
Author Organization [facility] [place] [address] Address [address] [place] [address] Care Team Providers Care Casino Banker Name Role Phone Roddy Gregorio MD Unavailable [phone] Hussein Gonzalez MD Primary Care Provider [...] (VITAMIN D-3) 400 unit capsule Take 1 tablet/capsu le (400 Units total) by mouth daily Active [...] WITH MEALS 180 tablet 3 4 Active aspirin 81 mg enteric coated tablet Take 1 tablet (81 mg total) by mouth daily Active ascorbic acid (VITAMIN C) 250 mg tablet Take 1 tablet (250 mg total) by mouth daily Active vit D-D-cszkub-zinc-l utein 226-90-0.8-5 mg capsule Take by mouth Active levothyroxine (SYNTHROID) 88 mcg tablet Take 1 tablet (88 mcg total) by mouth daily 5 Active coenzyme Q10 200 mg capsule Take 1 capsule (200 mg total) by mouth daily Active sodium bicarbonate 650 mg tablet Take 1 tablet (650 mg total) by mouth 2 (two) times a day 5 Active Active Problems Problem Noted Date Diagnosed Date Adrenal benign neoplasm, 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 2 Overview (06/17/2022): Added automatically from request for surgery [id number] CVA (cerebral vascular accident) 07/11/2021 Mitral valve [...] on file Legal Sex Female 2:57 PM CLARIFIER OPERATOR HELPER Gender Identity Not on file Sexual Orientation Not on file Obstetrics History Last Filed Vital Signs Vital Sign Reading Time Taken Comments Blood Pressure 138/86 03/15/2025 9:16 AM CDT Pulse 65 03/15/2025 9:16 AM CDT Temperature 36.5 C (97.7 F) 06/30/2022 8:08 AM CLARIFIER OPERATOR HELPER Respiratory Rate 16 06/30/2022 8:08 AM CLARIFIER OPERATOR HELPER Oxygen Saturation 90% 03/15/2025 9:16 AM CDT Inhaled Oxygen Concentration - - Weight 77.6 kg (171 lb) 03/15/2025 9:16 AM CDT Height 172.7 cm (5' 8) 03/15/2025 9:16 AM CDT Body Mass Index 26 03/15/2025 9:16 AM CDT Plan of Treatment Health Maintenance Due Date Last Done Comments Depression Screening 1938 Osteoporosis Screening-Bone Density Scan 1938 Hepatitis B Screening 1956 Zoster Vaccine (1 of 2) 1988 Well Visit 65+ 2003 DTaP/Tdap/Td Vaccine (1 - Tdap) 03/02/2013 3 Fall Risk Assessment 06/30/2023 06/30/2022 Influenza Vaccine (#1) 2025 Pneumococcal vaccine 65+ Completed 021, 11/29/2017, 06/16/2003 Insurance [facility] OTHER Address: [facility] [address] [place] [address] [facility] MED[facility] Address: [address] [address] [place] [address] HEALTHCARE Advance Directives For more information, please contact: [phone] * Full Code (Latest Code Status on File) Date Activated Date Inactivated Comments 06/28/2022 12:52 PM 06/30/2022 4:57 PM * Full Code Date Activated Date Inactivated Comments 04/24/2022 8:35 AM 04/25/2022 4:54 AM Care Teams Casino Banker Relationship Specialty Start Date End Date Hussein Gonzalez MD [address] [facility] [place] [address] [place] [address] PCP - General Family Practice 12/11/22 [place] [address] [place] [address] [place] [id number] Consulting Physician Urology 06/28/22
--- OUTSIDE RECORDS SUMMARY | 2025-06-22 08:10 | XMS_ITS | Encounter Summary ---
Author Organization [facility] Address [address] [facility] [place] [address] Care Team Providers Care Information Technology Associate Name Role Phone Venkat Webb MD Unavailable [phone] Encounter Details Date Type Department Care Team (Late st Contact Info) Description 12/28/[address] [facility] Orthopedics [address] [address] [place] [address] [address] Social History Tobacco Use Types Packs/Day Years Used Date Smoking Tobacco: Never Smokeless Tobacco: Never Alcohol Use Standard Drinks/Week Comments No 0 (1 standard drink = 0.6 oz pur e alcohol) Comments No Sex and Gender Information Value Date Recorded Sex Assigned at Not on file Legal Sex Female 2:50 PM COOLING PAN TENDER Gender Identity Not on file Sexual Orientation Not on file documented as of this encounter Plan of Treatment Not on file documented as of this encounter Visit Diagnoses Not on filedocumented in this encounter Care Teams Information Technology Associate Relationship Specialty Start Date End Date Venkat Webb MD Orthopedic Surgery 10/08/12 documented as of this encounter
--- OUTSIDE RECORDS SUMMARY | 2025-06-22 08:11 | XMS_ITS | Clinical Summary ---
Author Organization [facility] Address [address] [place] [id number] Care Team Providers Care Echo Tech Name Role Phone Unavailable Primary Care Provider [...] 75+ series) 2013 COVID-19 Vaccine ( - 2024-2 6 season) 2025 Influenza Adult (#1) 2025 Hepatitis A Vaccines Aged Out No long er eligible based on patient's age to complete this topic Meningococcal B Vaccine Aged Out No l onger eligible based on patient's age to complete this topic Meningococcal Vaccine Aged Out No amber amrita eligible based on patient's age to complete this topic RSV Immunizations Under 20 Months Aged Out No longer eligible based on patient's age to complete this topic
[2025-06-22 13:21] LABS: Alanine Aminotransferase 15 U/L (6-35); Albumin Level 4.3 g/dL (3.5-5.1); Alkaline Phosphatase 65 U/L (38-126); Anion Gap 9 mmol/L (4-12); Aspartate Amino Transferase 39 U/L (14-36); Bilirubin,Total 0.7 mg/dL (0.2-1.3); Blood Urea Nitrogen 57 mg/dL (7-17); Calcium 8.7 mg/dL (8.4-10.2); Carbon Dioxide 24 mmol/L (22-30); Chloride 101 mmol/L (98-107); Cholesterol 218 mg/dL (0-200); Estimated Glomerular Filt Rate 24; Glucose 83 mg/dL (65-110); HDL Direct 82 mg/dL; Hematocrit 38.5 % (37.0-47.0); Hemoglobin 12.2 g/dL (12.0-15.0); Immature Granulocyte Percent A 0.2 % (0-0.5); Lymphocytes Absolute Auto 0.95 K/mm3 (0.9-3.2); Mean Corpuscular HGB Conc 31.7 g/dl (32-36); Mean Corpuscular Hemoglobin 33.6 pg (26-34); Mean Corpuscular Volume 106.1 fl (80-100); Nucleated Red Blood Cells Absolute Auto 0.000 K/mm3 (0.0-0.012); Nucleated Red Blood Cells Perc 0.0 % (0.0-0.2); Platelet Count Result 258 k/mm3 (150-375); Potassium 5.0 mmol/L (3.4-5.0); Red Blood Count 3.63 M/mm3 (4.2-5.4); Sodium 134 mmol/L (137-145); Total Protein 7.4 g/dL (6.3-8.2); Triglycerides 156 mg/dL (<150); White Blood Count 4.5 K/mm3 (4.5-10.0)
[2025-06-22 13:38] LABS: Free T4 Free Thyroxine 1.50 ng/dL (0.78-2.19); Parathyroid Intact 141.1 pg/mL (14.5-75.2)
[2025-06-22 13:44] LABS: Total Protein Urine Random 9 mg/dL; Ur Ttl Prot Creatinine Ratio 0.18 mg/mg (0-0.20)
[2025-06-22 13:56] LABS: Thyroid Stimulating Hormone 1.260 uIU/mL (0.465-4.680)
== END 2025-06-22 08:04 | disposition home or self-care (01) ==
LOC: ANHGOSHLAB 08:04
PROVIDERS: Internal Medicine Nephrology; PCP Family Medicine; Visit Provider Nurse Practitioner Family
DX: E03.9 Hypothyroidism, unspecified (principal); E55.9 Vitamin D deficiency, unspecified; I12.9 Hypertensive chronic kidney disease with stage 1 through stage 4 chronic kidney disease, or unspecified chronic kidney disease; N18.4 Chronic kidney disease, stage 4 (severe)
CPT/HCPCS: 36415; 80053; 80061; 82306; 82570; 83970; 84156; 84439; 84443; 85025

== ENCOUNTER 2025-07-13 13:30 | Outpatient (CLI) | payer MEDICARE, SELFPAY ==
[2025-07-13 19:08] LABS: Anion Gap 9 mmol/L (4-12); Blood Urea Nitrogen 56 mg/dL (7-17); Calcium 8.6 mg/dL (8.4-10.2); Carbon Dioxide 26 mmol/L (22-30); Chloride 102 mmol/L (98-107); Estimated Glomerular Filt Rate 22; Glucose 82 mg/dL (65-110); Potassium 4.2 mmol/L (3.4-5.0); Sodium 137 mmol/L (137-145)
== END 2025-07-13 13:31 | disposition home or self-care (01) ==
LOC: ANHGOSHLAB 13:31
PROVIDERS: PCP Nurse Practitioner Family; Visit Provider Internal Medicine Nephrology
DX: N18.4 Chronic kidney disease, stage 4 (severe) (principal); E87.1 Hypo-osmolality and hyponatremia
CPT/HCPCS: 36415; 80048